=== PATIENT | female | born 1935 | race Caucasian/White ===

== ENCOUNTER 2016-08-24 23:05 | Observation (INO) | payer OTHER ==
[~2016-08-24] VITALS: Ht 167.6 cm; Wt 90.5 kg
[~2016-08-24 23:05] MED LIST: ALL100 PO; ANAS1TAB6 PO; ASPEC325 PO; CALC-392 PO; CHOL1TAB42 PO; CYAN3INJ INJ; FURO-85 PO; GLC500 PO; LANS15CA24 PO; LEVO75TA33 PO; LISI40TA PO; MISCTAB78 PO; MULT-506 PO; PSYL55.43 PO; SENNTAB23 PO; SERT-234 PO; SIMV40TA2 PO
[2016-08-24] MEDS ORDERED: ASPIRIN 81 MG CHEW PO STA (23:31)
[2016-08-24 23:33] LABS: BASO % 0.2 %; BASO ABS # 0.02 K/uL (0-0.2); COMPLETE YES; EOS % 1.2 %; HEMATOCRIT 39.4 % (37-47); IG% 0.3 %; LYMPH % 18.2 %; LYMPH ABS # 1.86 K/uL (1.2-3.4); MEAN CELL VOLUME 89.3 fL (80-100); MEAN CORPUSCULAR HEMOGLOBIN 28.8 pg (25-34); MEAN CORPUSCULAR HGB CONC 32.2 g/dl (32-36); MEAN PLATELET VOLUME 11.8 fL (7.4-10.4); MONO % 7.1 %; PLATELET COUNT 181 K/uL (130-400); RED BLOOD COUNT 4.41 M/uL (4.2-5.4)
[2016-08-24 23:43] LABS: INR 1.1 (0.9-1.1); PROTHROMBIN TIME (PATIENT) 11.5 SECONDS (9.0-12.0)
[2016-08-24 23:56] LABS: ALT/SGPT 24 U/L (12-78); AST/SGOT 15 U/L (15-37); BLOOD UREA NITROGEN 20 mg/dl (7-18); BUN/CREATININE RATIO 14.1 (10-20); CALCIUM 9.7 mg/dl (8.5-10.1); CARBON DIOXIDE 27 mmol/L (21-32); CHLORIDE 105 mmol/L (98-107); GLUCOSE 169 mg/dl (70-99); POTASSIUM 4.1 mmol/L (3.5-5.1); SODIUM 144 mmol/L (136-145)
[2016-08-25] VITALS (9 sets, daily range): BP systolic 125–169; BP diastolic 76–92; PULSE 63–89; TEMP 36.4–36.9; O2SAT 92–96; BMI 31.6
[2016-08-25 00:01] LABS: ALKALINE PHOSPHATASE 97 U/L (45-117); CKMB/CK RATIO 1.7 (0-3.0)
[2016-08-25] MEDS ORDERED: DOCU-94 PO (00:25)
[2016-08-25] MEDS ORDERED: ALLO100T PO (00:25)
[2016-08-25] MEDS ORDERED: CYNI1000 IM (00:26)
[2016-08-25] MEDS ORDERED: GLUCTAB7 PO (00:28)
[2016-08-25] MEDS ORDERED: SITA50TA5 PO (00:30)
[2016-08-25] MEDS ORDERED: SITA50TA3 PO (00:30)
[2016-08-25] MEDS ORDERED: LEVO88TA3 PO (00:31)
[2016-08-25] MEDS ORDERED: METF1000 PO (00:32)
[2016-08-25] MEDS ORDERED: OMEP40CA41 PO (00:33)
--- NOTE | 2016-08-25 01:14 | EMERGENCY ROOM VISIT NOTE ---
History Report prepared by Rosaline: Star Zuñiga Under the Supervision of: Dr. Domenico Kenney M.D. First contact with patient: 23:19 Chief Complaint: CARDIAC ASSESSMENT Stated Complaint: HEART BURN, LEFT HAND NUMBNESS Nursing Triage Summary: Pt reports mid chest pain, burning since 1900. Associated nausea. Pt reports she tried taking TUMs at home. No relief. denies cardiac hx. History of Present Illness The patient is a 80 year old female who presents to the Emergency Room with complaints of resolved chest pain that onset at 1900 this evening, 4.5 hours prior to arrival. She rates her pain as a 5/10 in severity. The patient also complains of some numbness in her left fingers, and radiation of her chest pain up into her shoulders. She was also slightly nauseous throughout the day today. The patient states that she has had indigestion in the past, but never anything that onset quite like this episode. She has not experienced any diaphoresis or tingling in her legs. The patient does have a history of high cholesterol, hypertension, and diabetes. Patient denies LOC, headache, fevers, chills, diaphoresis, visual changes, neck pain breathing difficulties, vomiting, abdominal pain, back pain, melena, hematochezia, urinary symptoms, weakness, lymphadenopathy, rash, or other complaints. 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 Review of Systems See HPI for pertinent positives and negatives. A total of ten systems were reviewed and were otherwise negative. Past Medical & Surgical Medical Problems: (1) Chest pain (2) Diabetes (3) High cholesterol (4) Hypertension Surgical Problems: (1) History of cholecystectomy Family History Heart disease Social History Smoking Status: Never Smoker Drug Use: none Marital Status: Housing Status: lives with significant other Occupation Status: retired Current/Historical Medications Scheduled Allopurinol (Zyloprim), 100 MG PO DAILY Calcium Carbonate (Calcium Carbonate), 600 MG PO DAILY Cholecalciferol (Vitamin D), 5,000 UNIT PO DAILY Cyanocobalamin (Cyanocobalamin), 1 ML IM MONTHLY Docusate Sodium (Colace), 1 CAP PO DAILY Furosemide (Lasix), 20 MG PO DAILY Qpogkesebqw-Snodurhqais-Zps C- (Glucosamine Chondroitin), 1 TAB PO DAILY Levothyroxine Sodium (Levothyroxine Sodium), 88 MCG PO DAILY Lisinopril (Zestril), 40 MG PO DAILY Metformin Hcl (Glucophage), 1,000 MG PO BID Multivitamin (Multivitamin), 1 TAB PO DAILY Omeprazole (Prilosec), 40 MG PO DAILY Sertraline (Zoloft), 200 MG PO DAILY Simvastatin (Zocor), 40 MG PO HS Sitagliptin (Januvia), 50 MG PO DAILY Sitagliptin-Metformin Hcl (Janumet), 1 TAB PO DAILY Allergies Coded Allergies: Hydromorphone (Unverified Adverse Reaction, Severe, hallucinations, confusion, 08/25/16) Physical Exam Vital Signs Date Time Temp Pulse Resp B/P Pulse Ox O2 Delivery O2 Flow Rate FiO2 08/25/16 00:36 64 18 147/78 95 Room Air 08/24/16 23:28 96 Room Air 08/24/16 23:20 72 08/24/16 23:16 96 Room Air 08/24/16 23:16 97 Room Air 08/24/16 23:08 36.3 76 18 176/91 96 Room Air Physical Exam GENERAL: Awake, alert, well-appearing, in no distress HENT: Normocephalic, atraumatic. Oropharynx unremarkable. EYES: Normal conjunctiva. Sclera non-icteric. NECK: Supple. No nuchal rigidity. FROM. No JVD. RESPIRATORY: Clear to auscultation. CARDIAC: Regular rate, normal rhythm. Extremities warm and well perfused. Pulses equal. ABDOMEN: Soft, non-distended. No tenderness to palpation. No rebound or guarding. No masses. RECTAL: Deferred. MUSCULOSKELETAL: Chest examination reveals no tenderness. The back is symmetrical on inspection without obvious abnormality. There is no CVA tenderness to palpation. No joint edema. LOWER EXTREMITIES: Calves are equal size bilaterally and non-tender. No edema. No discoloration. NEURO: Normal sensorium. No sensory or motor deficits noted. SKIN: No rash or jaundice noted. Medical Decision & Procedures ER Provider Diagnostic Interpretation: Chest x-ray. Findings: A chest x-ray was performed and revealed no pneumothorax, effusion, infiltrate, pulmonary edema, free air under the diaphragm, or wide mediastinum. Laboratory Results 08/24/16 23:20 Red Blood Count 4.41, Mean Corpuscular Volume 89.3, Mean Corpuscular Hemoglobin 28.8, Mean Corpuscular Hemoglobin Concent 32.2, Mean Platelet Volume 11.8, Neutrophils (%) (Auto) 73.0, Lymphocytes (%) (Auto) 18.2, Monocytes (%) (Auto) 7.1, Eosinophils (%) (Auto) 1.2, Basophils (%) (Auto) 0.2, Neutrophils # (Auto) 7.45, Lymphocytes # (Auto) 1.86, Monocytes # (Auto) 0.72, Eosinophils # (Auto) 0.12, Basophils # (Auto) 0.02 08/24/16 23:20 Test 08/24/16 23:20 08/24/16 23:27 White Blood Count 10.20 K/uL (4.8-10.8) Red Blood Count 4.41 M/uL (4.2-5.4) Hemoglobin 12.7 g/dL (12.0-16.0) Hematocrit 39.4 % (37-47) Mean Corpuscular Volume 89.3 fL (80-100) Mean Corpuscular Hemoglobin 28.8 pg (25-34) Mean Corpuscular Hemoglobin Concent 32.2 g/dl (32-36) Platelet Count 181 K/uL (130-400) Mean Platelet Volume 11.8 fL (7.4-10.4) Neutrophils (%) (Auto) 73.0 % Lymphocytes (%) (Auto) 18.2 % Monocytes (%) (Auto) 7.1 % Eosinophils (%) (Auto) 1.2 % Basophils (%) (Auto) 0.2 % Neutrophils # (Auto) 7.45 K/uL (1.4-6.5) Lymphocytes # (Auto) 1.86 K/uL (1.2-3.4) Monocytes # (Auto) 0.72 K/uL (0.11-0.59) Eosinophils # (Auto) 0.12 K/uL (0-0.5) Basophils # (Auto) 0.02 K/uL (0-0.2) RDW Standard Deviation 47.9 fL (36.4-46.3) RDW Coefficient of Variation 14.7 % (11.5-14.5) Immature Granulocyte % (Auto) 0.3 % Immature Granulocyte # (Auto) 0.03 K/uL (0.00-0.02) Prothrombin Time 11.5 SECONDS (9.0-12.0) Prothromb Time International Ratio 1.1 (0.9-1.1) Activated Partial Thromboplast Time 25.5 SECONDS (21.0-31.0) Partial Thromboplastin Ratio 1.0 Anion Gap 12.0 mmol/L (3-11) Est Creatinine Clear Calc Drug Dose 37.2 ml/min Estimated GFR () 41.6 Estimated GFR (Non- 35.9 BUN/Creatinine Ratio 14.1 (10-20) Calcium Level 9.7 mg/dl (8.5-10.1) Total Bilirubin 0.3 mg/dl (0.2-1) Direct Bilirubin < 0.1 mg/dl (0-0.2) Aspartate Amino Transf (AST/SGOT) 15 U/L (15-37) Alanine Aminotransferase (ALT/SGPT) 24 U/L (12-78) Alkaline Phosphatase 97 U/L (45-117) Total Creatine Kinase 59 U/L (26-192) Creatine Kinase MB 1.0 ng/ml (0.5-3.6) Creatine Kinase MB Ratio 1.7 (0-3.0) Total Protein 7.8 gm/dl (6.4-8.2) Albumin 4.1 gm/dl (3.4-5.0) Lipase 176 U/L (73-393) Bedside Troponin I 0.000 ng/ml (0-0.045) Laboratory results reviewed by me Medications Administered Medications (Trade) Dose Ordered Sig/Cathy Route Start Time Stop Time Status Last Admin Dose Admin Aspirin (Aspirin Chew) 324 mg NOW STAT PO 08/24/16 23:31 08/24/16 23:32 DC 08/24/16 23:41 324 MG ECG Indication: chest pain Rate (beats per minute): 72 Rhythm: normal sinus Findings: nonspecific-ST abn, no acute ischemic change, no ectopy, other (LVH) ED Course 2326: The patient was evaluated in room A10. A complete history and physical exam was performed. 2331: Ordered Aspirin 324 mg PO. 0007: I reevaluated the patient at this time, she feeling well. 0011: I placed a page Dr. Meaghan Cutler Medical Decision Triage Nursing notes reviewed. The patient's presentation and history were concerning for chest pain. Etiologies such as cardiac ischemia, aortic dissection, pulmonary embolism, pneumonia, pneumothorax, musculoskeletal, infections, gastrointestinal, as well as others were entertained. The patient was evaluated. Her chest pain resolved. The patient was given aspirin. ECG was nonischemic. Her CBC, chemistry panel, LFTs, lipase, cardiac markers were unremarkable. The patient had an unremarkable chest x-ray. She is diabetic, hypertensive, has high cholesterol, and has a family history. I discussed further evaluation and management in the hospital. Consultation was made with the hospitalist service. The patient was evaluated by Dr. Brent Grey. The chart was completed utilizing [employer] Speech voice recognition software. Grammatical errors, random word insertions, pronoun errors, and incomplete sentences are an occasional consequence of this system due to software limitations, ambient noise, and hardware issues. Any formal questions or concerns about the content, text, or information contained within the body of this dictation should be directly addressed to the physician for clarification. Impression Primary Impression: Substernal chest pain Scribe Attestation The scribe's documentation has been prepared under my direction and personally reviewed by me in its entirety. I confirm that the note above accurately reflects all work, treatment, procedures, and medical decision making performed by me. Departure Information Dispostion Being Evaluated By Hospitalist Referrals Latanya Renteria M.D. (PCP) Patient Instructions My [facility]
[2016-08-25] MEDS ORDERED: POLYETHYLENE (MIRALAX) 17 GM PACK PO PRN (01:15)
[2016-08-25] MEDS ORDERED: ACETAMINOPHEN 325 MG TAB PO PRN (01:15)
[2016-08-25] MEDS ORDERED: ALUMINUM/MAGNESIUM/SIMETH (MAALOX MAX) 30 ML UDC PO PRN ×2 (01:15→12:45)
[2016-08-25] MEDS ORDERED: NITROGLYCERIN 0.4 MG SL PER TAB CHARGE SL PRN (01:15)
[2016-08-25] MEDS ORDERED: MAGNESIUM HYDROXIDE SUSP 30 ML UDC PO PRN (01:15)
[2016-08-25] MEDS ORDERED: ONDANSETRON INJ 2 MG/ML 2 ML VIAL IV PRN (01:15)
[2016-08-25] MEDS ORDERED: IV FLUIDS COMPLETED PRN (01:15)
--- NOTE | 2016-08-25 01:31 | History and Physical ---
History & Physical Date & Time of Service: Aug 25, 2016 at 01:19 Chief Complaint: Heart Burn, Left Hand Numbness Primary Care Physician: Latanya Renteria M.D. History of Present Illness Source: patient This is a 80 y/o F with a pmh of DM-2, Hypercholesterolemia, HTN, Breast cancer s/p lumpectomy and radiation, diverticulitis s/p partial colectomy, who presents with mid-sternal burning sensation since about 7 pm. She reports that it is not a chest pain but "acid reflux." She has had this occasionally in the past, but this has been persistent since 7 pm. She was brought in by her her . She rates her discomfort a 6/10. It radiates to her right neck and is accompanied by left hand numbness/tingling as well as nausea. She took two tums but there was no relief. She denies diaphoresis, shortness of breath, dizziness , pre-syncope, syncope, melena, hematochezia, weakness of extremities, hematuria. She denies cardiac history Denies h/o of stroke Non smoker Ambulatory at home with minimal support. Lives with . Past Medical/Surgical History Medical Problems: (1) Diabetes Status: Chronic (2) High cholesterol Status: Chronic (3) Hypertension Status: Chronic Surgical Problems: (1) History of cholecystectomy Status: Resolved Family History Heart disease Social History Smoking Status: Never Smoker Alcohol Use: none Drug Use: none Marital Status: Housing status: lives with family Occupational Status: retired Immunizations History of Influenza Vaccine: Yes History of Tetanus Vaccine?: Unknown History of Pneumococcal: Yes Pneumococcal Date: May 07, 2007 History of Hepatitis B Vaccine: Unknown Multi-Drug Resistant Organisms History of MDRO: No Allergies Coded Allergies: Hydromorphone (Unverified Adverse Reaction, Severe, hallucinations, confusion, 08/25/16) Home Medications Scheduled Allopurinol (Zyloprim), 100 MG PO DAILY Calcium Carbonate (Calcium Carbonate), 600 MG PO DAILY Cholecalciferol (Vitamin D), 5,000 UNIT PO DAILY Cyanocobalamin (Cyanocobalamin), 1 ML IM MONTHLY Docusate Sodium (Colace), 1 CAP PO DAILY Furosemide (Lasix), 20 MG PO DAILY Chgthxbqedv-Kbempcvttzo-Yht C- (Glucosamine Chondroitin), 1 TAB PO DAILY Levothyroxine Sodium (Levothyroxine Sodium), 88 MCG PO DAILY Lisinopril (Zestril), 40 MG PO DAILY Metformin Hcl (Glucophage), 1,000 MG PO BID Multivitamin (Multivitamin), 1 TAB PO DAILY Omeprazole (Prilosec), 40 MG PO DAILY Sertraline (Zoloft), 200 MG PO DAILY Simvastatin (Zocor), 40 MG PO HS Sitagliptin (Januvia), 50 MG PO DAILY Sitagliptin-Metformin Hcl (Janumet), 1 TAB PO DAILY Review of Systems Constitutional: No chills, No fatigue, No fever, No sweats, No weakness Eyes: + worsening of vision (pre-existing cataracts) ENT: No hearing loss Respiratory: No cough, No dyspnea at rest, No dyspnea on exertion, No shortness of breath, No sputum, No wheezing Cardiovascular: No PND, No chest pain, No edema, No orthopnea, No palpitations Abdomen: + nausea, + problem reported (Burning sensation, midsternal), No constipation, No diarrhea, No pain, No vomiting Genitourinary - Female: No dysuria, No urinary frequency, No urinary urgency Neurologic: + numbness/tingling, No paralysis, No weakness Physical Exam Vital Signs Date Time Temp Pulse Resp B/P Pulse Ox O2 Delivery O2 Flow Rate FiO2 08/25/16 00:36 64 18 147/78 95 Room Air 08/24/16 23:28 96 Room Air 08/24/16 23:20 72 08/24/16 23:16 96 Room Air 08/24/16 23:16 97 Room Air 08/24/16 23:08 36.3 76 18 176/91 96 Room Air General Appearance: no apparent distress Head: normocephalic, atraumatic Eyes: normal inspection, PERRL, EOMI ENT: hearing grossly normal, pharynx normal Neck: supple, no adenopathy, no JVD Respiratory/Chest: lungs clear, normal breath sounds, no respiratory distress, no accessory muscle use Cardiovascular: regular rate, rhythm, no edema, + systolic murmur Abdomen/GI: normal bowel sounds, non tender, soft Back: normal inspection, no CVA tenderness Extremities/Musculoskelatal: normal inspection, no calf tenderness, normal capillary refill, no pedal edema 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, no motor/sensory deficits, alert, normal mood/affect, oriented x 3 Diagnostics Laboratory Results Results Past 24 Hours Test 08/24/16 23:20 08/24/16 23:27 Range/Units White Blood Count 10.20 4.8-10.8 K/uL Red Blood Count 4.41 4.2-5.4 M/uL Hemoglobin 12.7 12.0-16.0 g/dL Hematocrit 39.4 37-47 % Mean Corpuscular Volume 89.3 80-100 fL Mean Corpuscular Hemoglobin 28.8 25-34 pg Mean Corpuscular Hemoglobin Concent 32.2 32-36 g/dl Platelet Count 181 130-400 K/uL Mean Platelet Volume 11.8 7.4-10.4 fL Neutrophils (%) (Auto) 73.0 % Lymphocytes (%) (Auto) 18.2 % Monocytes (%) (Auto) 7.1 % Eosinophils (%) (Auto) 1.2 % Basophils (%) (Auto) 0.2 % Neutrophils # (Auto) 7.45 1.4-6.5 K/uL Lymphocytes # (Auto) 1.86 1.2-3.4 K/uL Monocytes # (Auto) 0.72 0.11-0.59 K/uL Eosinophils # (Auto) 0.12 0-0.5 K/uL Basophils # (Auto) 0.02 0-0.2 K/uL RDW Standard Deviation 47.9 36.4-46.3 fL RDW Coefficient of Variation 14.7 11.5-14.5 % Immature Granulocyte % (Auto) 0.3 % Immature Granulocyte # (Auto) 0.03 0.00-0.02 K/uL Prothrombin Time 11.5 9.0-12.0 SECONDS Prothromb Time International Ratio 1.1 0.9-1.1 Activated Partial Thromboplast Time 25.5 21.0-31.0 SECONDS Partial Thromboplastin Ratio 1.0 Sodium Level 144 136-145 mmol/L Potassium Level 4.1 3.5-5.1 mmol/L Chloride Level 105 98-107 mmol/L Carbon Dioxide Level 27 21-32 mmol/L Anion Gap 12.0 3-11 mmol/L Blood Urea Nitrogen 20 7-18 mg/dl Creatinine 1.40 0.60-1.20 mg/dl Est Creatinine Clear Calc Drug Dose 37.2 ml/min Estimated GFR () 41.6 Estimated GFR (Non- 35.9 BUN/Creatinine Ratio 14.1 10-20 Random Glucose 169 70-99 mg/dl Calcium Level 9.7 8.5-10.1 mg/dl Total Bilirubin 0.3 0.2-1 mg/dl Direct Bilirubin < 0.1 0-0.2 mg/dl Aspartate Amino Transf (AST/SGOT) 15 15-37 U/L Alanine Aminotransferase (ALT/SGPT) 24 12-78 U/L Alkaline Phosphatase 97 45-117 U/L Total Creatine Kinase 59 26-192 U/L Creatine Kinase MB 1.0 0.5-3.6 ng/ml Creatine Kinase MB Ratio 1.7 0-3.0 Total Protein 7.8 6.4-8.2 gm/dl Albumin 4.1 3.4-5.0 gm/dl Lipase 176 73-393 U/L Bedside Troponin I 0.000 0-0.045 ng/ml Impression Assessment and Plan This is a 80 y/o F with DM, HTN, Hyperchol who presents with a several hour history of persistent mid-sternal burning sensation, concerning for atypical presentation of ACS vs. Gerd etc. We will observe her on tele. Chest pain rule out: Initial troponin negative, trend x 3 Initial EKG without Ischemic changes, ectopy Heart risk score of 4 points - 12% - 16% risk of cardiac events Will Order a Stress Echo for tomorrow MAEGAN cr of 1.4 Trend BMP Gentle hydration HTN Continue Lisinopril Hypothyroid Continue Synthroid Hypercholesterolemia Continue Zocor non insulin dependant Diabetes type 2 Random glucose here of 169 Hold Metformin, janumet and januvia ISS BS AC/HS Lantus 10 units qAM to start- can adjust based on blood sugars GI prophylaxis Takes omeprazole Protonix here DVT prophylaxis Lovenox Code: Full Level of Care Telemetry Resuscitation Status FULL RESUSCITATION VTE Prophylaxis VTE Risk Assessment Done? Y/N: Yes Risk Level: Moderate Given or contraindicated: Enoxaparin (Lovenox)SQ Assessment and Plan Attending Addendum: I have physically seen and examined this patient, have directed their medical care, have supervised the medical residents activities, and agree with the H&P as noted above, with the following changes: The patient is awake, well-developed and adequately nourished, alert and oriented 3, normocephalic and atraumatic, lying in bed and in no acute distress. HEENT--PERRL, EOMI, mucous membranes and oropharynx dry. Neck--supple, no JVD or bruits, thyroid normal, trachea midline, no adenopathy. Heart--normal S1 and S2, no extra beats, no murmurs, rubs or gallops. Lungs--clear bilaterally with good air movement, no respiratory distress, no accessory muscle use. Abdomen--normal bowel sounds and soft, nontender and nondistended, no hernias or masses, no organomegaly. Extremities--no cyanosis, clubbing or edema. There are good distal pulses b/l. Dermatologic--normal skin turgor, normal color, warm and dry, no abnormal lymph nodes, no rash. Neurologic--cranial nerves II through XII grossly intact, motor and sensory examination normal. Rheumatologic--normal range of motion, nontender, muscles and joints. Psychiatric--normal affect. Assessment and Plan: Indigestion/midsternal burning-- the patient's symptoms could be that of an anginal equivalent. She has multiple risk factors including age over 55, hypertension, hypercholesterolemia, diabetes mellitus and being overweight. She 'll be admitted to the telemetry unit, for serial cardiac enzymes, cardiac rhythm monitoring and a 2-D echocardiogram with Dopplers she will need a stress echocardiogram prior to discharge. Hypertension/renal insufficiency--we will continue lisinopril 40 mg by mouth daily. Hold furosemide 20 mg by mouth daily due to appearance of mild dehydration. Diabetes mellitus--hold all forms of metformin including metformin 1000 mg by mouth twice a day and Janumet, due to creatinine 1.4 . Can continue Januvia 50 mg by mouth daily, or if blood sugars are high morning, can start Lantus 10 units subcutaneous a.m.. We'll place on Accu-Cheks before meals and at bedtime with NovoLog coverage. Hypercholesterolemia--continue simvastatin 40 mg by mouth at bedtime. Gout--continue allopurinol 100 mg by mouth daily. Hypothyroidism--continue levothyroxine sodium 50 g by mouth daily. GERD--change omeprazole 40 mg by mouth daily to pantoprazole 40 mg by mouth daily. Depression--continue sertraline 200 mg by mouth daily.
[2016-08-25] MEDS ORDERED: GLUCOSE 40% GEL 15 GM TUBE PO PRN (01:45)
[2016-08-25] MEDS ORDERED: DEXTROSE 50% 50 ML SYR IV PRN (01:45)
[2016-08-25] MEDS ORDERED: GLUCOSE 10 TABS/TUBE PO PRN (01:45)
[2016-08-25] MEDS ORDERED: GLUCAGON FOR INJ 1 MG VIAL SQ PRN (01:45)
[2016-08-25] MEDS ORDERED: SODIUM CHLORIDE 0.9% 1000ML 1,000 ML IV SCH (02:00)
[2016-08-25] MEDS ORDERED: HydrALAZINE HCL 20 MG/ML VIAL IV. PRN (02:15)
[2016-08-25] MEDS ORDERED: CALCIUM CARBONATE 500 MG CHEWABLE PO PRN (02:30)
[2016-08-25] MEDS: LEVOTHYROXINE 88 MCG TAB PO SCH (05:37)
[2016-08-25] MEDS: INSULIN ASPART 100 UNITS/ML 3 ML PEN SC SCH ×4 (06:30→21:00)
--- NOTE | 2016-08-25 07:12 | DIAGNOSTIC IMAGING REPORT ---
SINGLE VIEW CHEST CLINICAL HISTORY: Atypical chest pain. FINDINGS: An AP, portable, upright chest radiograph is compared to study dated 12/12/2013. The cardiomediastinal silhouette is unremarkable. There is atherosclerotic calcification of the thoracic aorta. Chronic interstitial thickening is unchanged. Minimal left basilar scarring versus atelectasis is identified. There is no airspace consolidation, large pleural effusion, or pneumothorax seen. The skeletal structures are osteopenic. The bony thorax is grossly intact. IMPRESSION: No acute cardiopulmonary abnormality. Electronically signed by: Ian Godwin M.D. 08/25/2016 7:10 AM Dictated Date/Time: 08/25/2016 7:10 AM
[2016-08-25] MEDS: SERTRALINE HCL 100 MG TAB PO SCH (08:01)
[2016-08-25] MEDS: ALLOPURINOL 100 MG TAB PO SCH (08:01)
[2016-08-25] MEDS: DOCUSATE SODIUM 100 MG CAP PO SCH (08:01)
[2016-08-25] MEDS: MULTIVITAMIN TAB PO SCH (08:01)
[2016-08-25] MEDS: LISINOPRIL 40 MG TAB PO SCH (08:01)
[2016-08-25] MEDS: FUROSEMIDE 20 MG TAB PO SCH (08:01)
[2016-08-25] MEDS: ENOXAPARIN 40 MG/0.4 ML SYR SC SCH (08:02)
[2016-08-25] MEDS: INSULIN GLARGINE SOLOSTAR 100 UNITS/ML 3 ML PEN SC SCH (09:00)
--- NOTE | 2016-08-25 09:24 | Medical Student: [facility] ---
Med Student History & Physical Date & Time of Service: Aug 25, 2016 at 08:58 Chief Complaint: Chest "burning" that won't go away Primary Care Physician: Latanya Renteria M.D. History of Present Illness Source: patient, hospital records Patient is a 80 year old female with PMH of DM type 2, HTN, and hypercholesterolemia who presented to the ED on 08/24 with several hours of chest "burning" with nausea. The patient says she gets heartburn at home but it has never been this severe. It started around 7pm last night and did not respond to tums. She describes the pain as 6/10 in severity. It radiated to her neck and left arm. She also felt tingling/numbness in left arm. She says the left arm "tingling" is not new to her. The pain did not get better or worse with position change or exertion. She denies shortness of breath, diaphoresis, dizziness, vomiting, fevers, and chills. She also denies eating or drinking new or spicy foods. EKG in the ED did not show any ischemic changes. No acute events over night. Patient does not feel any better since admission. Still experiencing chest "burning" and nausea. Has not felt like eating since she arrived. Past Medical/Surgical History Medical Problems: (1) Diabetes Status: Chronic (2) Hypertension Status: Chronic (3) Substernal chest pain Status: Acute Surgical Problems: (1) History of cholecystectomy Status: Resolved Family History Heart disease Social History Smoking Status: Never Smoker Alcohol Use: none Drug Use: none Marital Status: Housing status: lives with family Occupational Status: retired Immunizations History of Influenza Vaccine: Yes History of Tetanus Vaccine?: Unknown History of Pneumococcal: Yes Pneumococcal Date: May 07, 2007 History of Hepatitis B Vaccine: Unknown Allergies Coded Allergies: Hydromorphone (Unverified Adverse Reaction, Severe, hallucinations, confusion, 08/25/16) Medications Allopurinol (Zyloprim), 100 MG PO DAILY Calcium Carbonate (Calcium Carbonate), 600 MG PO DAILY Cholecalciferol (Vitamin D), 5,000 UNIT PO DAILY Cyanocobalamin (Cyanocobalamin), 1 ML IM MONTHLY Docusate Sodium (Colace), 1 CAP PO DAILY Furosemide (Lasix), 20 MG PO DAILY Uroxxmnlayp-Vwduvssurbm-Ois C- (Glucosamine Chondroitin), 1 TAB PO DAILY Levothyroxine Sodium (Levothyroxine Sodium), 88 MCG PO DAILY Lisinopril (Zestril), 40 MG PO DAILY Metformin Hcl (Glucophage), 1,000 MG PO BID Multivitamin (Multivitamin), 1 TAB PO DAILY Omeprazole (Prilosec), 40 MG PO DAILY Sertraline (Zoloft), 200 MG PO DAILY Simvastatin (Zocor), 40 MG PO HS Sitagliptin (Januvia), 50 MG PO DAILY Sitagliptin-Metformin Hcl (Janumet), 1 TAB PO DAILY Review of Systems Constitutional: No chills, No fatigue, No fever, No sweats, No weakness, No weight loss Eyes: No worsening of vision ENT: No hearing loss Respiratory: No cough, No dyspnea at rest, No dyspnea on exertion, No shortness of breath, No sputum, No wheezing Cardiovascular: + problem reported (chest burning ), No chest pain, No palpitations Abdomen: + nausea, No pain, No vomiting Genitourinary - Female: No dysuria, No urinary frequency, No urinary incontinence, No urinary retention, No urinary urgency Neurologic: + numbness/tingling (left arm ), No memory loss, No paralysis, No weakness Psychiatric: No depression symptoms Endocrine: No fatigue Physical Exam Vital Signs (24 Hours) Date Time Temp Pulse Resp B/P Pulse Ox O2 Delivery O2 Flow Rate FiO2 08/25/16 07:55 36.6 78 20 169/92 95 08/25/16 04:41 36.7 65 18 136/77 96 Room Air 08/25/16 04:24 Room Air 08/25/16 02:20 36.7 63 16 149/84 96 Room Air 08/25/16 01:30 63 19 174/91 96 08/25/16 00:36 64 18 147/78 95 Room Air 08/24/16 23:28 96 Room Air 08/24/16 23:20 72 08/24/16 23:16 96 Room Air 08/24/16 23:16 97 Room Air 08/24/16 23:08 36.3 76 18 176/91 96 Room Air General Appearance: no apparent distress, + obese Head: normocephalic Eyes: normal inspection, PERRL, EOMI ENT: hearing grossly normal Neck: supple, no adenopathy, no JVD Respiratory/Chest: lungs clear, normal breath sounds, no respiratory distress, no accessory muscle use, + pertinent finding (chest discomfort worse with palpation over the sternum) Cardiovascular: regular rate, rhythm, no edema, no murmur Abdomen/GI: normal bowel sounds, non tender, soft Extremities/Musculoskelatal: no pedal edema Neurologic/Psych: no motor/sensory deficits, alert, normal mood/affect, oriented x 3 Skin: warm/dry Diagnostics Laboratory Results Results Past 24 Hours Test 08/24/16 23:20 08/24/16 23:27 08/25/16 07:35 08/25/16 07:42 Range/Units White Blood Count 10.20 4.8-10.8 K/uL Red Blood Count 4.41 4.2-5.4 M/uL Hemoglobin 12.7 12.0-16.0 g/dL Hematocrit 39.4 37-47 % Mean Corpuscular Volume 89.3 80-100 fL Mean Corpuscular Hemoglobin 28.8 25-34 pg Mean Corpuscular Hemoglobin Concent 32.2 32-36 g/dl Platelet Count 181 130-400 K/uL Mean Platelet Volume 11.8 7.4-10.4 fL Neutrophils (%) (Auto) 73.0 % Lymphocytes (%) (Auto) 18.2 % Monocytes (%) (Auto) 7.1 % Eosinophils (%) (Auto) 1.2 % Basophils (%) (Auto) 0.2 % Neutrophils # (Auto) 7.45 1.4-6.5 K/uL Lymphocytes # (Auto) 1.86 1.2-3.4 K/uL Monocytes # (Auto) 0.72 0.11-0.59 K/uL Eosinophils # (Auto) 0.12 0-0.5 K/uL Basophils # (Auto) 0.02 0-0.2 K/uL RDW Standard Deviation 47.9 36.4-46.3 fL RDW Coefficient of Variation 14.7 11.5-14.5 % Immature Granulocyte % (Auto) 0.3 % Immature Granulocyte # (Auto) 0.03 0.00-0.02 K/uL Prothrombin Time 11.5 9.0-12.0 SECONDS Prothromb Time International Ratio 1.1 0.9-1.1 Activated Partial Thromboplast Time 25.5 21.0-31.0 SECONDS Partial Thromboplastin Ratio 1.0 Sodium Level 144 136-145 mmol/L Potassium Level 4.1 3.5-5.1 mmol/L Chloride Level 105 98-107 mmol/L Carbon Dioxide Level 27 21-32 mmol/L Anion Gap 12.0 3-11 mmol/L Blood Urea Nitrogen 20 7-18 mg/dl Creatinine 1.40 0.60-1.20 mg/dl Est Creatinine Clear Calc Drug Dose 37.2 ml/min Estimated GFR () 41.6 Estimated GFR (Non- 35.9 BUN/Creatinine Ratio 14.1 10-20 Random Glucose 169 70-99 mg/dl Calcium Level 9.7 8.5-10.1 mg/dl Total Bilirubin 0.3 0.2-1 mg/dl Direct Bilirubin < 0.1 0-0.2 mg/dl Aspartate Amino Transf (AST/SGOT) 15 15-37 U/L Alanine Aminotransferase (ALT/SGPT) 24 12-78 U/L Alkaline Phosphatase 97 45-117 U/L Total Creatine Kinase 59 26-192 U/L Creatine Kinase MB 1.0 0.5-3.6 ng/ml Creatine Kinase MB Ratio 1.7 0-3.0 Total Protein 7.8 6.4-8.2 gm/dl Albumin 4.1 3.4-5.0 gm/dl Lipase 176 73-393 U/L Bedside Troponin I 0.000 0-0.045 ng/ml Troponin I < 0.015 0-0.045 ng/ml Bedside Glucose 159 70-90 mg/dl Impression Assessment and Plan ASSESSMENT This is a 80 year old female with PMH of DM type 2, HTN, hypercholesteremia, and GERD who presented to the ED with several hours of persistent mid sternal burning admitted for atypical ACS vs GERD rule out. PLAN 1) Chest discomfort -Rule out ACS. Initial troponin negative. Trend 3 troponins. -Patient scheduled for stress echocardiogram today. 2) HTN -Continue Lisinopril 40mg daily. 3) Hypothyroidism -Continue Levothyroxine sodium 88mcg daily. 4) Hypercholesterolemia -Continue Zocor 40mg daily. 5) DM type 2 -Random blood glucose was 169. Check BG AC/HS. -Currently holding home metformin, Januvia, and Janumet. -Lantus 10U qAM with ISS. 6) DVT prophylaxis -Patient started on Lovenox. Advanced Directives Existing Living Will: Yes Existing Power of Director Of Event Sales: Yes
[2016-08-25] MEDS ORDERED: PANTOprazole INJ 40 MG in SYRINGE 0 ML IV SCH (11:00)
[2016-08-25] MEDS ORDERED: ALUMINUM/MAGNESIUM/SIMETH (MAALOX MAX) 30 ML UDC PO STA (12:35)
--- NOTE | 2016-08-25 12:46 | EXERCISE STRESS ECHO ---
*NOTICE TO RECEIVING REPUBLICAN AGENCY This information is strictly Confidential and protected under [place] law. [place] law prohibits you from making any further disclosure of this information unless further disclosure is expressly permitted by the written consent of the person to whom it pertains or is authorized by law. A general authorization for the release of medical or other information is not sufficient for this purpose. Hospital accepts no responsibility if the information is made available to any other person, INCLUDING THE PATIENT. Interpretation Summary * Name: EPHRAIM BUSTOS Study Date: 08/25/2016 09:26 AM BP: 155/83 mmHg * Patient Location: [facility]\S\N289\S\2 HR: 70 * : 1935 (M/d/yyyy) Gender: Female Height: 66 in * Age: 80 yrs Ethnicity: [place] Weight: 195 lb * Ordering Physician: Meaghan Cutler * Referring Physician: Self, Referred * Performed By: Deepti Gong RDCS * * Reason For Study: CHEST PAIN * BSA: 2.0 m2 * History: CHEST PAIN * -- Conclusions -- * Left ventricular systolic function is normal. * The right ventricle is mildly dilated. * Grade I diastolic dysfunction, (abnormal relaxation pattern). * Poor exercise tolerance, but no inducible ischemia or symptoms with the level of exertion achieved. Procedure Details * ECHOEX, CPT #65405 * A contrast injection of Definity was performed to improve assessment of LV function. * Contrast was injected into an intravenous site in the left arm. * One vial of Definity ultrasound contrast was diluted in normal saline to a total volume of 10 ml. A total of '4' ml of solution was administered during imaging. * Lot # [id number] of Definity utilized for procedure. * Expiration date SEP 16. * The attending nurse who injected the contrast agent was SHEEBA BRANNON RN. Left Ventricular Findings with Stress * Baseline EKG was normal with some flattening of the ST segments in recovery. Baseline echo images demonstrate normal wall motion, no inducible wall motion abnormality with stress. No symptoms. Scott treadmill score: 3.5 (moderate risk) Left Ventricle * The left ventricle is normal in size. * There is normal left ventricular wall thickness. * Ejection Fraction = 60-65%. * Left ventricular systolic function is normal. * Resting wall motion: Normal. Stress wall motion: Appropriate increase in Left ventricular systolic function and decrease in cavity size. No stress induced segmental wall motion abnormalities. Right Ventricle * The right ventricle is mildly dilated. * The right ventricular systolic function is normal. Atria * The left atrial size is normal. * Right atrial size is normal. Mitral Valve * The mitral valve is grossly normal. * There is no mitral regurgitation noted. Tricuspid Valve * The tricuspid valve is not well visualized. * There is trace tricuspid regurgitation. Aortic Valve * The aortic valve is normal in structure and function. * No hemodynamically significant valvular aortic stenosis. * There is no significant aortic regurgitation. Pericardium * There is no pericardial effusion. Stress Parameters * The stress portion of this study was personally supervised by the undersigned interpreting physician. * Rest heart rate was '70' BPM. * Rest blood pressure was '155/83' * Maximum heart rate achieved was 160 bpm. * Maximum heart rate was 112 % of maximum age-predicted heart rate. * Maximum blood pressure was '155/83' * Total exercise time was '6:57' * Maximum exercise MET level achieved was '5.10' METS * Maximum treadmill speed was '1.70' miles per hour. * Maximum treadmill elevation was '16.00'% grade. * Exercise was terminated due to 'ACHIEVING TARGET HR' Left Ventricular Diastolic Function * Grade I diastolic dysfunction, (abnormal relaxation pattern). MMode 2D Measurements and Calculations IVSd 1.1 cm IVSs 1.3 cm LVIDd 4.3 cm LVIDs 2.6 cm LVPWd 0.82 cm LVPWs 1.1 cm IVS/LVPW 1.3 FS 38.5 % EDV(Teich) 81.4 ml ESV(Teich) 25.2 ml EF(Teich) 69.1 % EDV(cubed) 77.5 ml ESV(cubed) 18.1 ml EF(cubed) 76.7 % % IVS thick 17.7 % % LVPW thick 34.8 % LV mass(C)d 129.7 grams LV mass(C)dI 65.5 grams/m\S\2 LV mass(C)s 88.6 grams LV mass(C)sI 44.8 grams/m\S\2 SV(Teich) 56.3 ml SI(Teich) 28.4 ml/m\S\2 SV(cubed) 59.5 ml SI(cubed) 30.0 ml/m\S\2 LVAd ap4 23.2 cm\S\2 LVLd ap4 7.4 cm EDV(MOD-sp4) 60.4 ml EDV(sp4-el) 61.5 ml LVAs ap4 13.0 cm\S\2 LVLs ap4 6.4 cm ESV(MOD-sp4) 22.9 ml ESV(sp4-el) 22.4 ml EF(MOD-sp4) 62.1 % EF(sp4-el) 63.6 % LVAd ap2 21.7 cm\S\2 LVLd ap2 8.0 cm EDV(MOD-sp2) 49.2 ml EDV(sp2-el) 50.1 ml LVAs ap2 11.8 cm\S\2 LVLs ap2 6.3 cm ESV(MOD-sp2) 20.2 ml ESV(sp2-el) 18.6 ml EF(MOD-sp2) 59.0 % EF(sp2-el) 63.0 % LVLd %diff 6.9 % EDV(MOD-bp) 55.5 ml LVLs %diff -0.89 % ESV(MOD-bp) 21.5 ml EF(MOD-bp) 61.3 % SV(MOD-sp4) 37.5 ml SI(MOD-sp4) 19.0 ml/m\S\2 SV(MOD-sp2) 29.0 ml SI(MOD-sp2) 14.7 ml/m\S\2 SV(MOD-bp) 34.0 ml SI(MOD-bp) 17.2 ml/m\S\2 SV(sp4-el) 39.1 ml SI(sp4-el) 19.8 ml/m\S\2 SV(sp2-el) 31.6 ml SI(sp2-el) 15.9 ml/m\S\2 Doppler Measurements and Calculations MV E max patricia 71.3 cm/sec MV A max patricia 104.8 cm/sec MV E/A 0.68 MV dec time 0.29 sec Ao V2 max 199.1 cm/sec Ao max PG 15.9 mmHg Ao max PG (full) 10.3 mmHg LV V1 max PG 5.6 mmHg LV V1 max 118.1 cm/sec
--- NOTE | 2016-08-25 14:15 | Progress Note ---
Subjective Date of Service: Aug 25, 2016. Subjective Pt evaluation today including: conversation w/ patient, physical exam, chart review, lab review, review of studies, conversation w/ staff consultant, review of inpatient medication list Middle chest pain likely heartburn, reported occasional acid reflux, has been getting better, no Chest pain, no dyspnea on exertion Problem List Medical Problems: (1) Diabetes Status: Chronic (2) Hypertension Status: Chronic (3) Substernal chest pain Status: Acute Review of Systems Constitutional: No chills, No fatigue, No fever, No problem reported, No sweats , No weakness, No weight loss Eyes: No diplopia, No discharge, No eye pain, No redness, No worsening of vision ENT: No dental problems, No hearing loss, No nasal symptoms, No sore throat, No tinnitus, No trouble swallowing, No unusual epistaxis Respiratory: No cough, No dyspnea at rest, No dyspnea on exertion, No hemoptysis, No shortness of breath, No sputum, No wheezing Cardiac: No PND, No chest pain, No claudication, No edema, No orthopnea, No palpitations Abdomen: + pain, No constipation, No diarrhea, No nausea, No vomiting Musculoskeletal: No calf pain, No joint pain, No muscle pain, No swelling Female : No abnormal vaginal bleeding, No dysuria, No hematuria, No incontinence, No urinary frequency, No vaginal discharge Neurologic: No balance problems, No memory loss, No numbness/tingling, No paralysis, No vertigo, No weakness Psychiatric: No anhedonism, No anxiety, No depression symptoms, No insomnia, No substance abuse Heme: No abnormal bleeding/bruising, No clotting problems, No night sweats, No swollen lymph nodes Endo: No excessive thirst, No excessive urination, No fatigue Skin: No bleeding, No color change, No itch, No new/changing skin lesions, No rash Objective Vital Signs Date Time Temp Pulse Resp B/P Pulse Ox O2 Delivery O2 Flow Rate FiO2 08/25/16 12:22 95 Room Air 08/25/16 11:28 36.7 89 20 137/83 95 08/25/16 08:01 95 Room Air 08/25/16 07:55 36.6 78 20 169/92 95 08/25/16 04:41 36.7 65 18 136/77 96 Room Air 08/25/16 04:24 Room Air 08/25/16 02:20 36.7 63 16 149/84 96 Room Air 08/25/16 01:30 63 19 174/91 96 08/25/16 00:36 64 18 147/78 95 Room Air 08/24/16 23:28 96 Room Air 08/24/16 23:20 72 08/24/16 23:16 96 Room Air 08/24/16 23:16 97 Room Air 08/24/16 23:08 36.3 76 18 176/91 96 Room Air Physical Exam General Appearance: WD/WN, no apparent distress Eyes: normal inspection, PERRL, EOMI, sclerae normal ENT: normal ENT inspection, hearing grossly normal, pharynx normal Neck: supple, no adenopathy, thyroid normal, no JVD, no carotid bruits, trachea midline Respiratory/Chest: chest non-tender, lungs clear, normal breath sounds, no respiratory distress, no accessory muscle use Cardiovascular: regular rate, rhythm, no edema, no gallop, no JVD, no murmur, + systolic murmur (mild systolic murmur) Abdomen: normal bowel sounds, non tender, soft, no organomegaly, no pulsatile mass Extremities: normal range of motion, non-tender, normal inspection, no pedal edema, no calf tenderness, normal capillary refill, pelvis stable Neurologic/Psychiatric: addiction medicine physician II-XII nml as tested, no motor/sensory deficits, alert, normal mood/affect, oriented x 3 Skin: normal color, warm/dry, no rash Lymphatic: no adenopathy Laboratory Results Last 24 Hours Test 08/24/16 23:20 08/24/16 23:27 08/25/16 07:35 08/25/16 07:42 White Blood Count 10.20 K/uL Red Blood Count 4.41 M/uL Hemoglobin 12.7 g/dL Hematocrit 39.4 % Mean Corpuscular Volume 89.3 fL Mean Corpuscular Hemoglobin 28.8 pg Mean Corpuscular Hemoglobin Concent 32.2 g/dl Platelet Count 181 K/uL Mean Platelet Volume 11.8 fL Neutrophils (%) (Auto) 73.0 % Lymphocytes (%) (Auto) 18.2 % Monocytes (%) (Auto) 7.1 % Eosinophils (%) (Auto) 1.2 % Basophils (%) (Auto) 0.2 % Neutrophils # (Auto) 7.45 K/uL Lymphocytes # (Auto) 1.86 K/uL Monocytes # (Auto) 0.72 K/uL Eosinophils # (Auto) 0.12 K/uL Basophils # (Auto) 0.02 K/uL RDW Standard Deviation 47.9 fL RDW Coefficient of Variation 14.7 % Immature Granulocyte % (Auto) 0.3 % Immature Granulocyte # (Auto) 0.03 K/uL Prothrombin Time 11.5 SECONDS Prothromb Time International Ratio 1.1 Activated Partial Thromboplast Time 25.5 SECONDS Partial Thromboplastin Ratio 1.0 Sodium Level 144 mmol/L Potassium Level 4.1 mmol/L Chloride Level 105 mmol/L Carbon Dioxide Level 27 mmol/L Anion Gap 12.0 mmol/L Blood Urea Nitrogen 20 mg/dl Creatinine 1.40 mg/dl Est Creatinine Clear Calc Drug Dose 37.2 ml/min Estimated GFR () 41.6 Estimated GFR (Non- 35.9 BUN/Creatinine Ratio 14.1 Random Glucose 169 mg/dl Calcium Level 9.7 mg/dl Total Bilirubin 0.3 mg/dl Direct Bilirubin < 0.1 mg/dl Aspartate Amino Transf (AST/SGOT) 15 U/L Alanine Aminotransferase (ALT/SGPT) 24 U/L Alkaline Phosphatase 97 U/L Total Creatine Kinase 59 U/L Creatine Kinase MB 1.0 ng/ml Creatine Kinase MB Ratio 1.7 Total Protein 7.8 gm/dl Albumin 4.1 gm/dl Lipase 176 U/L Bedside Troponin I 0.000 ng/ml Troponin I < 0.015 ng/ml Bedside Glucose 159 mg/dl Test 08/25/16 11:40 08/25/16 12:55 Bedside Glucose 171 mg/dl Troponin I < 0.015 ng/ml Assessment and Plan 80 y/o F with DM, HTN, Hyperchol who presents with a several hour history of persistent mid-sternal burning sensation, concerning for atypical presentation of ACS vs. Gerd etc. We will observe her on tele. Chest pain rule out: With risk factor of diabetic dyslipidemia and hypertension and family history of acute AR, a ROYCE score is around 2, Initial troponin negative, trend x 3 Initial EKG without Ischemic changes, ectopy Heart risk score of 4 points - 12% - 16% risk of cardiac events Stress echo was negative per verbal report from pool technician Epigastric pain could be from the digestive track because stress test is negative for cardiac enzyme troponin is negative Differential diagnoses include gastritis, GERD, peptic ulcerative disease, or liver biliary tract disease, patient has a cholecystectomy already Change Protonix to by mouth, alternating Maalox as needed, MAEGAN. Stable but not better yet cr of 1.4 Trend BMP Gentle hydration HTN Continue Lisinopril Hypothyroid Continue Synthroid Hypercholesterolemia Continue Zocor non insulin dependant Diabetes type 2 Which is uncontrolled because recent A1c mono 7.0 Random glucose here of 169 Hold Metformin, janumet and januvia ISS BS AC/HS Lantus 10 units qAM to start- can adjust based on blood sugars GI prophylaxis Takes omeprazole Protonix here Check a fasting lipid panel, DVT prophylaxis Lovenox Code: Full Continued [facility] stay due to: multiple IV medications needed Discharge planning: home
[2016-08-25] MEDS ORDERED: SIMVASTATIN 40 MG TAB PO SCH (21:00)
[2016-08-26 04:03] VITALS: BP 134/79; PULSE 62; TEMP 36.5; O2SAT 96
[2016-08-26 05:45] LABS: HEMATOCRIT 36.1 % (37-47); MEAN CELL VOLUME 88.3 fL (80-100); MEAN CORPUSCULAR HEMOGLOBIN 28.9 pg (25-34); MEAN CORPUSCULAR HGB CONC 32.7 g/dl (32-36); MEAN PLATELET VOLUME 11.3 fL (7.4-10.4); PLATELET COUNT 154 K/uL (130-400); RED BLOOD COUNT 4.09 M/uL (4.2-5.4)
[2016-08-26] MEDS: LEVOTHYROXINE 88 MCG TAB PO SCH (06:06)
[2016-08-26 06:20] LABS: ALKALINE PHOSPHATASE 82 U/L (45-117); ALT/SGPT 20 U/L (12-78); AST/SGOT 16 U/L (15-37); BLOOD UREA NITROGEN 15 mg/dl (7-18); BUN/CREATININE RATIO 15.4 (10-20); CALCIUM 9.6 mg/dl (8.5-10.1); CARBON DIOXIDE 31 mmol/L (21-32); CHLORIDE 106 mmol/L (98-107); CREATININE 0.94 mg/dl (0.60-1.20); GLUCOSE 145 mg/dl (70-99); SODIUM 144 mmol/L (136-145)
[2016-08-26] MEDS: INSULIN ASPART 100 UNITS/ML 3 ML PEN SC SCH ×2 (06:30→11:00)
[2016-08-26 07:42] VITALS: BP 138/78; PULSE 57; TEMP 36.7; O2SAT 94
[2016-08-26] MEDS: ALLOPURINOL 100 MG TAB PO SCH (08:37)
[2016-08-26] MEDS: DOCUSATE SODIUM 100 MG CAP PO SCH (08:38)
[2016-08-26] MEDS: FUROSEMIDE 20 MG TAB PO SCH (08:38)
[2016-08-26] MEDS: MULTIVITAMIN TAB PO SCH (08:38)
[2016-08-26] MEDS: LISINOPRIL 40 MG TAB PO SCH (08:38)
[2016-08-26] MEDS: SERTRALINE HCL 100 MG TAB PO SCH (08:39)
[2016-08-26] MEDS: ENOXAPARIN 40 MG/0.4 ML SYR SC SCH (08:39)
[2016-08-26] MEDS: INSULIN GLARGINE SOLOSTAR 100 UNITS/ML 3 ML PEN SC SCH (08:48)
[2016-08-26] MEDS ORDERED: PANTOprazole SOD 40 MG TAB PO SCH (09:00)
[2016-08-26 11:15] VITALS: BP 105/63; PULSE 66; TEMP 37; O2SAT 94
[2016-08-26 11:38] VITALS: BMI 70.8
[2016-08-26 11:42] VITALS: Ht 167.6 cm; Wt 90.5 kg
--- NOTE | 2016-08-26 13:57 | Medical Student: [facility] ---
Med Student Progress Note Date of Service Aug 26, 2016. Subjective Pt evaluation today including: conversation w/ patient, lab review, review of studies Pain: denies pain Voiding: no voiding problems Patient is 80 year old female with PMH of HTN, hypercholesterolemia, and type 2 DM who presented to the ED on 08/24 for several hours of "burning" epigastric pain and nausea more severe than her usual GERD. Initial ACS work-up was negative. No acute events overnight. Patient feels "much better" today. She slept well last night and is able to eat again. Denies chest pain, epigastric pain, reflux , cough, nausea, vomiting, and shortness of breath. She is hoping to be discharged this afternoon. Review of Systems Constitutional: No chills, No fatigue, No fever, No sweats, No weakness Eyes: No worsening of vision ENT: No hearing loss, No nasal symptoms, No sore throat Respiratory: No cough, No dyspnea at rest, No dyspnea on exertion, No shortness of breath, No sputum Cardiac: No chest pain, No edema, No palpitations Abdomen: No constipation, No diarrhea, No nausea, No pain, No vomiting Female : No dysuria, No incontinence, No urinary frequency Neurologic: No numbness/tingling, No weakness Objective Vital Signs Date Time Temp Pulse Resp B/P Pulse Ox O2 Delivery O2 Flow Rate FiO2 08/26/16 11:30 Room Air 08/26/16 11:15 37.0 66 20 105/63 94 Room Air 08/26/16 07:42 36.7 57 20 138/78 94 Room Air 08/26/16 07:30 Room Air 08/26/16 04:03 36.5 62 20 134/79 96 Room Air 08/26/16 04:00 Room Air 08/26/16 00:01 Room Air 08/25/16 23:08 36.8 64 18 128/79 96 Room Air 08/25/16 20:16 36.9 70 18 131/80 92 Room Air 08/25/16 20:00 Room Air 08/25/16 16:00 Room Air 08/25/16 15:29 36.4 73 16 125/76 95 Physical Exam General Appearance: no apparent distress, + obese ENT: hearing grossly normal Neck: supple, no adenopathy, no JVD, no carotid bruits Respiratory/Chest: chest non-tender, lungs clear, normal breath sounds, no respiratory distress, no accessory muscle use Cardiovascular: regular rate, rhythm, no JVD, + systolic murmur Abdomen: normal bowel sounds, non tender, soft, no organomegaly, no pulsatile mass Neurologic/Psychiatric: alert, normal mood/affect, oriented x 3 Skin: normal color, warm/dry Laboratory Results Last 24 Hours Test 08/25/16 16:20 08/25/16 19:00 08/25/16 21:06 08/26/16 01:07 Bedside Glucose 154 mg/dl 149 mg/dl Troponin I < 0.015 ng/ml < 0.015 ng/ml Test 08/26/16 05:12 08/26/16 07:36 08/26/16 11:23 White Blood Count 5.80 K/uL Red Blood Count 4.09 M/uL Hemoglobin 11.8 g/dL Hematocrit 36.1 % Mean Corpuscular Volume 88.3 fL Mean Corpuscular Hemoglobin 28.9 pg Mean Corpuscular Hemoglobin Concent 32.7 g/dl RDW Standard Deviation 47.2 fL RDW Coefficient of Variation 14.7 % Platelet Count 154 K/uL Mean Platelet Volume 11.3 fL Sodium Level 144 mmol/L Potassium Level 4.0 mmol/L Chloride Level 106 mmol/L Carbon Dioxide Level 31 mmol/L Anion Gap 7.0 mmol/L Blood Urea Nitrogen 15 mg/dl Creatinine 0.94 mg/dl Est Creatinine Clear Calc Drug Dose 55.3 ml/min Estimated GFR () 67.3 Estimated GFR (Non- 58.1 BUN/Creatinine Ratio 15.4 Random Glucose 145 mg/dl Calcium Level 9.6 mg/dl Total Bilirubin 0.4 mg/dl Direct Bilirubin < 0.1 mg/dl Aspartate Amino Transf (AST/SGOT) 16 U/L Alanine Aminotransferase (ALT/SGPT) 20 U/L Alkaline Phosphatase 82 U/L Total Protein 6.9 gm/dl Albumin 3.3 gm/dl Bedside Glucose 197 mg/dl 166 mg/dl Assessment and Plan Assessment and Plan: Patient is 80 year old female with PMH of HTN, hypercholesterolemia, and type 2 DM who presented to the ED on 08/24 for several hours of "burning" epigastric pain and nausea more severe than her usual GERD admitted for GERD vs atypical ACS rule out. 1) Epigastric pain -Troponins are negative. EKG shows no ischemic changes. Echocardiogram showed normal LV systolic function and grade 1 diastolic dysfunction. -Pain was mostly likely due to GERD exacerbation. Continue Protonix. -Patient says pain and nausea have resolved. She is eating normally again. Possibly ready for discharge this afternoon. 2) HTN -Continue Lisinopril 40mg. 3) Hypothyroidism -Continue Levothyroxine 88mcg. 4) Hypercholesterolemia -Continue Zocor 200mg. 5) DM type 2 -Not well controlled at home on Metformin, Janumet, and Januvia. Most recent A1c 7.0. BG this morning was 197. Before lunch was 166. -Patient was seen by diabetes nurse educator this morning. -Currently holding home medications. Patient is on Lantus 10U qAM with ISS. 6) DVT prophylaxis -Lovenox Continued [facility] stay due to: multiple IV medications needed Discharge planning: home
[2016-08-26 14:51] VITALS: BP 125/73; PULSE 70; TEMP 36.9; O2SAT 95
--- NOTE | 2016-08-26 15:35 | Discharge Instructions ---
Discharge Instructions Date of Service Aug 26, 2016. Admission Reason for Admission: Chest Pain Discharge Discharge Diagnosis / Problem: GERD Discharge Goals Goal(s): Decrease discomfort, Improve function, Increase independence, Improve disease control, Improve nutritional status, Learn about illness, Diagnostic testing, Therapeutic intervention, Prevent Disease Progression, Specific goals Activity Recommendations Activity Limitations: resume your previous activity . Instructions / Follow-Up Instructions / Follow-Up you have atypical Chest pain, has rule out acs you have Epigastric pain could be from the digestive track such as GERD, acute kidney injury , resolved - you need to follow up with your primary care physician in 1 week, follow up with pcp for diabetic care, - call your pcp if have chest pain, sob, palpitation, or if has any questions - take medication as instructed, never overdose or any misuse, or take with alcohol, because misuse of medicine may cause organ damage or , call your primary care physician if have questions of medicaitons. - call your primary care physician OR go to local emergency room if has any fever/chill, chest pain, shortness of breathing, nausea/vomiting/abdominal pain , facial droop/slurry speech/local weakness, or if has any questions. - fall precaution - diet as instructed - you should understand that it is important to follow up the above instruction , and "not following the above instruction" may cause delayed or missed care of your medical conditions which may cause permanent organ damage and even . Current Hospital Diet Patient's current hospital diet: AHA Diet (Heart Healthy), Low Sodium Diet (2gm Na), Diabetes Type 2 Diet Discharge Diet Recommended Diet: Diabetes Type 2 Diet Pending Studies Studies pending at discharge: no Laboratory Results Meds Administered (Past 24Hrs) Medications (Trade) Dose Ordered Sig/Cathy Route Start Time Stop Time Status Last Admin Dose Admin Aspirin (Aspirin Chew) 324 mg NOW STAT PO 08/24/16 23:31 08/24/16 23:32 DC 08/24/16 23:41 324 MG Enoxaparin Sodium 40 mg 40 mg Q24H SC 08/25/16 09:00 09/24/16 08:59 08/26/16 08:39 40 MG Sodium Chloride (Nss 1000ml) 1,000 ml @ 75 mls/hr [id number] IV 08/25/16 02:00 08/25/16 12:38 DC 08/25/16 02:20 75 MLS/HR Allopurinol (Zyloprim Tab) 100 mg DAILY PO 08/25/16 09:00 09/24/16 08:59 08/26/16 08:37 100 MG Docusate Sodium (coLACE CAP) 100 mg DAILY PO 08/25/16 09:00 09/24/16 08:59 08/26/16 08:38 100 MG Furosemide (Lasix Tab) 20 mg DAILY PO 08/25/16 09:00 09/24/16 08:59 08/26/16 08:38 20 MG Levothyroxine Sodium (Synthroid Tab) 88 mcg DAILYBB PO 08/25/16 06:30 09/24/16 06:59 08/26/16 06:06 88 MCG Lisinopril (Zestril Tab) 40 mg DAILY PO 08/25/16 09:00 09/24/16 08:59 08/26/16 08:38 40 MG Multivitamins (Multivitamin Tab) 1 tab DAILY PO 08/25/16 09:00 09/24/16 08:59 08/26/16 08:38 1 TAB Sertraline HCl (Zoloft Tab) 200 mg DAILY PO 08/25/16 09:00 09/24/16 08:59 08/26/16 08:39 200 MG Simvastatin (Zocor Tab) 40 mg HS PO 08/25/16 21:00 09/24/16 20:59 08/25/16 21:10 40 MG Insulin Glargine 10 unit 10 unit QAM SC 08/25/16 09:00 09/24/16 08:59 08/26/16 08:48 10 UNIT Pantoprazole Sodium/Syringe (Protonix Inj/ Syringe) 10 ml @ 5 mls/min DAILY@11 IV 08/25/16 11:00 08/25/16 12:38 DC 08/25/16 11:26 5 MLS/MIN Al Hydrox/Mg Hydrox/Simethicone (Maalox Max Susp) 15 ml NOW STAT PO 08/25/16 12:35 08/25/16 12:52 DC 08/25/16 13:07 15 ML Pantoprazole Sodium (Protonix Tab) 40 mg QAM PO 08/26/16 09:00 09/25/16 08:59 08/26/16 08:38 40 MG Medical Emergencies . Who to Call and When: Medical Emergencies: If at any time you feel your situation is an emergency, please call 911 immediately. . Non-Emergent Contact Non-Emergency issues call your: Primary Care Provider . . "Provider Documentation" section prepared by Angelito Rebolledo. VTE Core Measure Inpt VTE Proph given/why not?: Enoxaparin (Lovenox)SQ
[2016-08-26 16:36] VITALS: BP 125/73; PULSE 70; TEMP 36.9; O2SAT 95
--- NOTE | 2016-08-26 16:41 | Discharge Summary ---
Discharge Summary Date of Service Aug 26, 2016. Discharge Summary Admission Date: Aug 25, 2016 at 00:59 Discharge Date: Aug 26, 2016 Discharge Disposition: Home Principal Diagnosis: atypical Chest pain, has rule out acs, GERD Problems/Secondary Diagnoses: (1) Diabetes Status: Chronic (2) Hypertension Status: Chronic Immunizations: Have You Had Influenza Vaccine: Yes History of Tetanus Vaccine?: Unknown History of Pneumococcal: Yes Pneumococcal Date: May 07, 2007 History of Hepatitis B Vaccine: Unknown Procedures: Stress test was negative Medication Reconciliation Continued Medications: Allopurinol (Zyloprim) 100 Mg Tab 100 MG PO DAILY, TAB Calcium Carbonate (Calcium Carbonate) 600 Mg Tab 600 MG PO DAILY Cholecalciferol (Vitamin D) 5,000 Unit Tab 5000 UNIT PO DAILY Cyanocobalamin (Cyanocobalamin) 1,000 Mcg/Ml Inj 1 ML IM MONTHLY Docusate Sodium (Colace) 100 Mg Cap 1 CAP PO DAILY for 30 Days, #30 CAP Furosemide (Lasix) 20 Mg Tab 20 MG PO DAILY, TAB Uxatduvbwgq-Xuvwsqjxlcj-Bsf C- (Glucosamine Chondroitin) 1 Tab Tab 1 TAB PO DAILY Levothyroxine Sodium (Levothyroxine Sodium) 88 Mcg Tab 88 MCG PO DAILY, 3 Refills Lisinopril (Zestril) 40 Mg Tab 40 MG PO DAILY, TAB Metformin Hcl (Glucophage) 1,000 Mg Tab 1000 MG PO BID, TAB Multivitamin (Multivitamin) Tab 1 TAB PO DAILY, 0 Refills Omeprazole (Prilosec) 40 Mg Cap 40 MG PO DAILY Sertraline (Zoloft) 100 Mg Tab 200 MG PO DAILY, 0 Refills Simvastatin (Zocor) 40 Mg Tab 40 MG PO HS, TAB Sitagliptin (Januvia) 50 Mg Tab 50 MG PO DAILY Sitagliptin-Metformin Hcl (Janumet) 1 Tab Tab 1 TAB PO DAILY, 3 Refills Discharge Exam Doing well, normal chest pain no more epigastric pain, eating drinking good, tolerate diet Review of Systems: Constitutional: No chills, No fatigue, No fever, No problem reported, No sweats, No weakness, No weight loss Eyes: No diplopia, No discharge, No eye pain, No problem reported, No redness, No worsening of vision Respiratory: No cough, No dyspnea at rest, No dyspnea on exertion, No hemoptysis, No problem reported, No shortness of breath, No sputum, No wheezing Cardiovascular: No PND, No chest pain, No claudication, No edema, No orthopnea, No palpitations, No problem reported Abdomen: No GI bleeding, No constipation, No diarrhea, No nausea, No pain, No problem reported, No vomiting Musculoskeletal: No calf pain, No joint pain, No muscle pain, No problem reported, No swelling Genitourinary - Female: No dysmenorrhea, No dysuria, No hematuria, No menorrhagia, No metrorrhagia, No , No problem reported, No rash, No urinary frequency, No urinary incontinence, No urinary retention, No urinary urgency, No vaginal bleeding, No vaginal discharge, No vaginal itching, No vulvodynia Neurologic: No balance problems, No memory loss, No numbness/tingling, No paralysis, No problem reported, No vertigo, No weakness Psychiatric: No anhedonism, No anxiety, No depression symptoms, No insomnia , No problem reported, No substance abuse Endocrine: No excessive thirst, No excessive urination, No fatigue, No problem reported Hematologic / Lymphatic: No abnormal bleeding/bruising, No clotting problems , No night sweats, No problem reported, No swollen lymph nodes Integumentary: No bleeding, No color change, No itch, No new/changing skin lesions, No problem reported, No rash Physical Exam: General Appearance: WD/WN, no apparent distress Eyes: normal inspection, PERRL, EOMI ENT: normal ENT inspection, hearing grossly normal, TMs normal, pharynx normal Neck: supple, no adenopathy, thyroid normal Respiratory/Chest: chest non-tender, normal breath sounds, no respiratory distress, no accessory muscle use, + decreased breath sounds Cardiovascular: regular rate, rhythm, no edema, no gallop, no JVD, no murmur , normal peripheral pulses Abdomen / GI: normal bowel sounds, non tender, soft, no organomegaly, no pulsatile mass Extremities: normal inspection, no calf tenderness, normal capillary refill , no pedal edema, normal range of motion 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 Gerd etc. We will observe her on tele. Chest pain rule out: With risk factor of diabetic dyslipidemia and hypertension and family history of acute TN, a ROYCE score is around 2, Initial troponin negative, trend x 3 Initial EKG without Ischemic changes, ectopy Heart risk score of 4 points - 12% - 16% risk of cardiac events Stress echo was negative per report from process improvement engineer Epigastric pain could be from the digestive track because stress test is negative for cardiac enzyme troponin is negative Differential diagnoses include gastritis, GERD, peptic ulcerative disease, or liver biliary tract disease, patient has a cholecystectomy already Change Protonix to by mouth, alternating Maalox as needed, Totally resolved today on PPI, we'll continue PPI MAEGAN. Stable but not better yet, totally resolved cr of 1.4 upon admission May need to Trend BMP with PCP Gentle hydration HTN Continue Lisinopril Hypothyroid Continue Synthroid Hypercholesterolemia Continue Zocor non insulin dependant Diabetes type 2 Which is uncontrolled because recent A1c mono 7.0 Random glucose here of 169 Hold Metformin, janumet and januvia upon admission, will restart home medication , seems due to double check with PCP about the medications because patient seems to have Januvia, janumet and metformin, PCP please follow-up Has been on ISS, BS AC/HS, Lantus 10 units qAM to start- can adjust based on blood sugars during his hospitalization GI prophylaxis Takes omeprazole Protonix here Check a fasting lipid panel, DVT prophylaxis Lovenox Code: Full Discharge instruction you have atypical Chest pain, has rule out acs you have Epigastric pain could be from the digestive track such as GERD, acute kidney injury , resolved - you need to follow up with your primary care physician in 1 week, follow up with pcp for diabetic care, - call your pcp if have chest pain, sob, palpitation, or if has any questions - take medication as instructed, never overdose or any misuse, or take with alcohol, because misuse of medicine may cause organ damage or , call your primary care physician if have questions of medicaitons. - call your primary care physician OR go to local emergency room if has any fever/chill, chest pain, shortness of breathing, nausea/vomiting/abdominal pain , facial droop/slurry speech/local weakness, or if has any questions. - fall precaution - diet as instructed - you should understand that it is important to follow up the above instruction , and "not following the above instruction" may cause delayed or missed care of your medical conditions which may cause permanent organ damage and even . Total Time Spent: Less than 30 minutes This includes examination of the patient, discharge planning, medication reconciliation, and communication with other providers. Discharge Instructions Please refer to the electronic Patient Visit Report (Discharge Instructions) for additional information. Additional Copies To Latanya Renteria M.D.
[2016-11-28] MEDS ORDERED: SITA100T3 PO (15:30)
[2017-01-06] MEDS ORDERED: PRED1SUS OPL (07:58)
[2017-01-06] MEDS ORDERED: CIPR0.3S OPL (07:58)
== END 2016-08-26 17:00 | disposition home or self-care (01) ==
LOC: ENRESERVDT → ENRESERVTM → C.EDB 23:07 → C.MED 08-25 00:59
PROVIDERS: ADMIT Hospitalist; ATTEND Hospitalist
DX: R07.89 Other chest pain (principal); N28.9 Disorder of kidney and ureter, unspecified; E11.9 Type 2 diabetes mellitus without complications; I10 Essential (primary) hypertension; R10.13 Epigastric pain; E78.00 Pure hypercholesterolemia, unspecified; E03.9 Hypothyroidism, unspecified; K21.9 Gastro-esophageal reflux disease without esophagitis; E86.0 Dehydration; E66.3 Overweight; M10.9 Gout, unspecified; F32.9 Major depressive disorder, single episode, unspecified; Z90.49 Acquired absence of other specified parts of digestive tract; Z85.3 Personal history of malignant neoplasm of breast; Z92.3 Personal history of irradiation; Z82.49 Family history of ischemic heart disease and other diseases of the circulatory system

== ENCOUNTER 2016-09-08 10:00 | Emergency (ER) | payer OTHER ==
[~2016-09-08] VITALS: Ht 167.6 cm; Wt 89.5 kg
[~2016-09-08 10:00] MED LIST changes: -ALL100 PO; +ALLO100T PO; -ANAS1TAB6 PO; -ASPEC325 PO; -CYAN3INJ INJ; +CYNI1000 IM; +DOCU-94 PO; -GLC500 PO; +GLUCTAB7 PO; -LANS15CA24 PO; -LEVO75TA33 PO; +LEVO88TA3 PO; +METF1000 PO; -MISCTAB78 PO; +OMEP40CA41 PO; -PSYL55.43 PO; -SENNTAB23 PO; +SITA50TA3 PO; +SITA50TA5 PO
[2016-09-08 10:02] VITALS: TEMP 36.7; O2SAT 97; Ht 167.6 cm; Wt 89.5 kg
[2016-09-08] MEDS ORDERED: ONDANSETRON INJ 2 MG/ML 2 ML VIAL IV STA (10:16)
[2016-09-08] MEDS ORDERED: SODIUM CHLORIDE 0.9% 1000ML 1,000 ML IV STA (10:19)
--- NOTE | 2016-09-08 10:24 | EMERGENCY ROOM VISIT NOTE ---
History Report prepared by Rosaline: Nabil Bhakta Under the Supervision of: Dr. Charles Alcala D.O. First contact with patient: 10:08 Chief Complaint: FLANK PAIN Stated Complaint: RIGHT SIDE PAIN History of Present Illness The patient is a 80 year old female who presents to the Emergency Room with complaints of worsening right-sided flank pain that started a couple weeks ago. She says that she started getting the pain after bending over while cleaning out her freezer. The patient states that it started off as a soreness, but has recently become a sharp pain that is worsening. She notes that the pain is constant now. Movements exacerbate her pain, and holding still makes the pain a bit better. She denies any other symptoms, including nausea, vomiting, shortness of breath, back pain, chest pain, hematuria, abdominal pain, or leg swelling. She is diabetic and also has hypertension and hyperthyroidism. The patient has a history of multiple surgeries, including a cholecystectomy, hysterectomy, and intestinal, bladder, and knee replacement surgeries. She does not use tobacco products and she does not drink alcohol. The patient did not see her doctor for her pain. Source of History: patient Onset: A couple weeks ago Position: other (right flank) Quality: sharp Timing: worsening Associated Symptoms: No SOB, No abdominal pain, No chest pain, No nausea, No urinary symptoms, No vomiting Note: Associated symptoms: Denies leg swelling. Review of Systems See HPI for pertinent positives & negatives. A total of 10 systems reviewed and were otherwise negative. Past Medical & Surgical Medical Problems: (1) Chest pain (2) Diabetes (3) High cholesterol (4) Hypertension Surgical Problems: (1) History of cholecystectomy Family History Heart disease Social History Smoking Status: Never Smoker Smokeless Tobacco Use: No Drug Use: none Marital Status: Housing Status: lives with significant other Occupation Status: retired Current/Historical Medications Scheduled Allopurinol (Zyloprim), 100 MG PO DAILY Calcium Carbonate (Calcium Carbonate), 600 MG PO DAILY Cholecalciferol (Vitamin D), 5,000 UNIT PO DAILY Cyanocobalamin (Cyanocobalamin), 1 ML IM MONTHLY Docusate Sodium (Colace), 1 CAP PO DAILY Furosemide (Lasix), 20 MG PO DAILY Lskailxtlns-Lxossyvguyo-Znn C- (Glucosamine Chondroitin), 1 TAB PO DAILY Levothyroxine Sodium (Levothyroxine Sodium), 88 MCG PO DAILY Lisinopril (Zestril), 40 MG PO DAILY Metformin Hcl (Glucophage), 1,000 MG PO BID Multivitamin (Multivitamin), 1 TAB PO DAILY Omeprazole (Prilosec), 40 MG PO DAILY Sertraline (Zoloft), 200 MG PO DAILY Simvastatin (Zocor), 40 MG PO HS Sitagliptin (Januvia), 50 MG PO DAILY Sitagliptin-Metformin Hcl (Janumet), 1 TAB PO DAILY Scheduled PRN Oxycodone Immediate Rel Tab (Roxicodone Ir), 1-2 TAB PO Q4H PRN for Severe Pain Allergies Coded Allergies: Hydromorphone (Unverified Adverse Reaction, Severe, hallucinations, confusion, 09/08/16) Physical Exam Vital Signs Date Time Temp Pulse Resp B/P Pulse Ox O2 Delivery O2 Flow Rate FiO2 09/08/16 12:46 63 160/67 09/08/16 11:49 59 18 157/80 09/08/16 10:02 36.7 70 18 194/87 97 Room Air Physical Exam GENERAL: Patient is awake, alert, somewhat anxious and uncomfortable appearing. Appeared to be in significant pain. EYES: The conjunctivae are clear. The pupils are round and reactive. EARS, NOSE, MOUTH AND THROAT: The nose is without any evidence of any deformity. Mucous membranes are moist tongue is midline NECK: The neck is nontender and supple. RESPIRATORY: Normal respiratory effort is noted there is no evidence of wheezing rhonchi or rales CARDIOVASCULAR: Regular rate and rhythm noted there no murmurs rubs or gallops normal S1 normal S2 GASTROINTESTINAL: The abdomen is moderately distended but soft. Right upper quadrant tenderness to palpation noted, no specific guarding or rigidity noted. BACK: Right CVA tenderness to percussion. MUSCULOSKELETAL/EXTREMITIES: There is no evidence of gross deformity full range of motion is noted in the hips and shoulders SKIN: There is no obvious evidence of any rash. There are no petechiae, pallor or cyanosis noted. NEUROLOGIC: Patient is awake alert and oriented x3 strength is symmetric patellar reflexes are 2+ bilaterally Medical Decision & Procedures ER Provider Diagnostic Interpretation: Radiology results as stated below per my review and radiologist interpretation: CT SCAN OF THE ABDOMEN AND PELVIS WITHOUT IV CONTRAST CLINICAL HISTORY: Right upper abdominal injury. COMPARISON STUDY: No priors. TECHNIQUE: CT scan of the abdomen and pelvis is performed from the lung bases to the proximal femora. Images are reviewed in the axial, sagittal, and coronal planes. IV contrast was not administered for this examination as per the referring clinician. Note that the examination was performed in suboptimal fashion without oral and IV contrast. Automated dose control exposure was utilized. CT DOSE: 1079.24 mGycm FINDINGS: Lung bases: The heart is normal in size and without pericardial effusion. There is bibasilar scarring versus atelectasis. No airspace consolidation or pleural effusion is seen. Postoperative change is identified in the right breast. A small hiatal hernia is observed. Liver: The unenhanced liver is enlarged, measuring 20 cm in craniocaudal length. The liver demonstrates diffusely diminished attenuation consistent with hepatic steatosis. There is mild central intrahepatic biliary ductal dilatation. Gallbladder: Surgically absent noting clips in the gallbladder fossa. Spleen: Normal in size and attenuation. Pancreas: There is near complete fatty atrophy of the pancreas. Adrenal glands: Unremarkable. Kidneys: The unenhanced kidneys are atrophic and without hydronephrosis. There is a punctate nonobstructing calculus in the upper pole of the left kidney. No right renal calculi are identified. There is no evidence of contour deforming renal mass lesion. Abdominal vasculature: The abdominal aorta is normal in course and caliber noting mild to moderate atherosclerotic calcification. Bowel: There are postoperative changes from sigmoid colon resection with colocolonic anastomosis. No bowel obstruction is identified. There is mild diverticulosis of the remaining colon without CT evidence of acute diverticulitis. There is a large duodenal diverticulum identified on image #202. The appendix is well-visualized and normal. Peritoneum: There is no intraperitoneal free air or abdominal ascites. A midline surgical scar is noted. Lymphadenopathy: None. Pelvic viscera: The bladder is normal as visualized. The uterus is surgically absent. No adnexal lesion is seen. Skeletal structures: The skeletal structures are osteopenic. There is an acute appearing right anterolateral ninth rib fracture. No additional fracture is clearly seen. A hemangioma is noted in the body of L3. No lytic or blastic lesions are seen. There is mild lumbar sacral spondylosis. IMPRESSION: 1. Suboptimal examination without oral and IV contrast. 2. There is no evidence of solid organ injury in the abdomen or pelvis on this unenhanced examination. 3. There is an acute appearing and nondistracted right anterolateral ninth rib fracture. 4. There are postoperative changes from sigmoid colon resection with colocolonic anastomosis. No bowel obstruction is seen. 5. Hepatomegaly and hepatic steatosis. 6. Punctate nonobstructing left renal calculus. 7. Additional changes as detailed above. Electronically signed by: Ian Godwin M.D. 09/08/2016 11:11 AM Dictated Date/Time: 09/08/2016 11:03 AM RIGHT RIBS UNILATERAL WITH PA CHEST CLINICAL HISTORY: Right rib pain. COMPARISON STUDY: Chest radiograph August 24, 2016. FINDINGS: There is no pneumothorax or pleural effusion. Cardiomediastinal silhouette is stable. There is no evidence of pulmonary edema. There are multiple old right-sided rib fractures. The suspected acute nondisplaced fracture of the right ninth rib shown on CT is not evident on this exam, likely due to radiographic technique. IMPRESSION: No pneumothorax. No acute right-sided rib fractures identified by radiography. The probable acute nondisplaced right ninth rib fracture shown on CT is not well visualized on this exam due to radiographic technique. Electronically signed by: Kieran Choi M.D. 09/08/2016 12:43 PM Dictated Date/Time: 09/08/2016 12:39 PM Laboratory Results 09/08/16 10:30 Red Blood Count 4.31, Mean Corpuscular Volume 88.9, Mean Corpuscular Hemoglobin 29.2, Mean Corpuscular Hemoglobin Concent 32.9, Mean Platelet Volume 11.5, Neutrophils (%) (Auto) 77.4, Lymphocytes (%) (Auto) 15.8, Monocytes (%) (Auto) 5.7, Eosinophils (%) (Auto) 0.7, Basophils (%) (Auto) 0.1, Neutrophils # (Auto) 5.59, Lymphocytes # (Auto) 1.14, Monocytes # (Auto) 0.41, Eosinophils # (Auto) 0.05, Basophils # (Auto) 0.01 09/08/16 10:30 Test 09/08/16 10:30 09/08/16 10:45 White Blood Count 7.22 K/uL (4.8-10.8) Red Blood Count 4.31 M/uL (4.2-5.4) Hemoglobin 12.6 g/dL (12.0-16.0) Hematocrit 38.3 % (37-47) Mean Corpuscular Volume 88.9 fL (80-100) Mean Corpuscular Hemoglobin 29.2 pg (25-34) Mean Corpuscular Hemoglobin Concent 32.9 g/dl (32-36) Platelet Count 177 K/uL (130-400) Mean Platelet Volume 11.5 fL (7.4-10.4) Neutrophils (%) (Auto) 77.4 % Lymphocytes (%) (Auto) 15.8 % Monocytes (%) (Auto) 5.7 % Eosinophils (%) (Auto) 0.7 % Basophils (%) (Auto) 0.1 % Neutrophils # (Auto) 5.59 K/uL (1.4-6.5) Lymphocytes # (Auto) 1.14 K/uL (1.2-3.4) Monocytes # (Auto) 0.41 K/uL (0.11-0.59) Eosinophils # (Auto) 0.05 K/uL (0-0.5) Basophils # (Auto) 0.01 K/uL (0-0.2) RDW Standard Deviation 48.4 fL (36.4-46.3) RDW Coefficient of Variation 14.9 % (11.5-14.5) Immature Granulocyte % (Auto) 0.3 % Immature Granulocyte # (Auto) 0.02 K/uL (0.00-0.02) Prothrombin Time 11.5 SECONDS (9.0-12.0) Prothromb Time International Ratio 1.1 (0.9-1.1) Activated Partial Thromboplast Time 25.2 SECONDS (21.0-31.0) Partial Thromboplastin Ratio 1.0 Anion Gap 8.0 mmol/L (3-11) Est Creatinine Clear Calc Drug Dose 52.2 ml/min Estimated GFR () 62.5 Estimated GFR (Non- 53.9 BUN/Creatinine Ratio 14.6 (10-20) Calcium Level 9.7 mg/dl (8.5-10.1) Total Bilirubin 0.3 mg/dl (0.2-1) Direct Bilirubin < 0.1 mg/dl (0-0.2) Aspartate Amino Transf (AST/SGOT) 14 U/L (15-37) Alanine Aminotransferase (ALT/SGPT) 32 U/L (12-78) Alkaline Phosphatase 108 U/L (45-117) Total Creatine Kinase 55 U/L (26-192) Creatine Kinase MB 0.9 ng/ml (0.5-3.6) Creatine Kinase MB Ratio 1.6 (0-3.0) Troponin I < 0.015 ng/ml (0-0.045) Total Protein 7.5 gm/dl (6.4-8.2) Albumin 3.8 gm/dl (3.4-5.0) Lipase 106 U/L (73-393) Urine Color YELLOW Urine Appearance CLEAR (CLEAR) Urine pH 6.0 (4.5-7.5) Urine Specific [place] 1.015 (1.000-1.030) Urine Protein NEG (NEG) Urine Glucose (UA) NEG (NEG) Urine Ketones NEG (NEG) Urine Occult Blood TRACE (NEG) Urine Nitrite NEG (NEG) Urine Bilirubin NEG (NEG) Urine Urobilinogen NEG (NEG) Urine Leukocyte Esterase SMALL (NEG) Urine WBC (Auto) 1-5 /hpf (0-5) Urine RBC (Auto) 0-4 /hpf (0-4) Urine Hyaline Casts (Auto) 1-5 /lpf (0-5) Urine Epithelial Cells (Auto) >30 /lpf (0-5) Urine Bacteria (Auto) NEG (NEG) Laboratory results per my review. Medications Administered Medications (Trade) Dose Ordered Sig/Cathy Route Start Time Stop Time Status Last Admin Dose Admin Ondansetron HCl (Zofran Inj) 4 mg NOW STAT IV 09/08/16 10:16 09/08/16 10:19 DC 09/08/16 10:41 4 MG Morphine Sulfate 4 mg 4 mg Q15M PRN IV 09/08/16 10:30 09/08/16 13:48 DC 09/08/16 12:45 4 MG Sodium Chloride (Nss 1000ml) 1,000 ml @ 125 mls/hr Q8H STAT IV 09/08/16 10:19 09/08/16 13:48 DC 09/08/16 10:42 125 MLS/HR ECG Indication: other (flank pain) Rate (beats per minute): 61 Rhythm: normal sinus Findings: no ectopy, other (no acute ST segment abnormalities) Change: no significant change (from August 25 2016) ED Course 1009: The patient was evaluated in room B6. A complete history and physical examination were performed. 1016: Ordered Zofran Inj 4 mg IV. 1019: Ordered NSS 1000 ml @ 125 mls/hr IV. 1030: Ordered Morphine Sulfate Inj 4 mg IV PRN. 1230: Upon reevaluation, the patient is resting comfortably. I discussed the results and treatment plan with her. She verbalized agreement of the treatment plan. She will be discharged home. Medical Decision Prior records/ancillary studies reviewed. Triage Nursing notes reviewed. Differential diagnosis: Etiologies such as cardiac ischemia, aortic dissection, pulmonary embolism, pneumonia, pneumothorax, musculoskeletal, infections, pericarditis, myocarditis , esophageal rupture, gastrointestinal, as well as others were entertained. The patient is a 80-year-old female who presented to the emergency department for an evaluation of right-sided chest pain. The patient states that she had an acute onset of pain recently when she was leaning over her kitchen counter. She had reproducible pain in the right upper quadrant as well as the right chest wall. The patient's laboratory and radiographic studies appear to be consistent with a rib fracture. The patient was treated with IV pain medication and IV antiemetics in the emergency department. On subsequent reevaluation she was feeling much better. She was encouraged to rest and avoid any strenuous activity. I discussed the patient's laboratory and radiographic studies with her. She was encouraged to call her primary care physician to schedule a follow- up appointment and rest but return to the emergency department immediately if symptoms change worsen or the need arises. Impression Primary Impression: Right rib fracture Scribe Attestation The scribe's documentation has been prepared under my direction and personally reviewed by me in its entirety. I confirm that the note above accurately reflects all work, treatment, procedures, and medical decision making performed by me. Departure Information Dispostion Home / Self-Care Prescriptions Oxycodone Immediate Rel Tab (ROXICODONE IR) 5 Mg Tab 1-2 TAB PO Q4H Y for Severe Pain, #24 TAB Prov: Charles Alcala, 09/08/16 Referrals Latanya Renteria M.D. (PCP) Forms HOME CARE DOCUMENTATION FORM, IMPORTANT VISIT INFORMATION Patient Instructions Fx Zaheer, My [facility] Additional Instructions Continue using Motrin and Tylenol as directed for mild pain. Rest and avoid any strenuous activity. Follow-up with your family doctor soon as possible. If you decide to use a stronger pain medication I would recommend taking an over-the- counter laxative such as Colace. Problem Qualifiers Primary Impression: Right rib fracture Encounter type: initial encounter Rib fracture type: single rib Fracture type: closed Qualified Codes: S22.31XA - Fracture of one rib, right side, initial encounter for closed fracture
[2016-09-08] MEDS: MoRPHine SULFATE 4 MG/ML 1 ML CARP\\VIAL IV PRN ×2 (10:42→12:45)
[2016-09-08 10:47] LABS: BASO % 0.1 %; BASO ABS # 0.01 K/uL (0-0.2); COMPLETE YES; EOS % 0.7 %; HEMATOCRIT 38.3 % (37-47); IG% 0.3 %; LYMPH % 15.8 %; LYMPH ABS # 1.14 K/uL (1.2-3.4); MEAN CELL VOLUME 88.9 fL (80-100); MEAN CORPUSCULAR HEMOGLOBIN 29.2 pg (25-34); MEAN CORPUSCULAR HGB CONC 32.9 g/dl (32-36); MEAN PLATELET VOLUME 11.5 fL (7.4-10.4); MONO % 5.7 %; NEUT % 77.4 %; PLATELET COUNT 177 K/uL (130-400); RED BLOOD COUNT 4.31 M/uL (4.2-5.4); WHITE BLOOD COUNT 7.22 K/uL (4.8-10.8)
[2016-09-08 10:57] LABS: INR 1.1 (0.9-1.1); PROTHROMBIN TIME (PATIENT) 11.5 SECONDS (9.0-12.0)
[2016-09-08 11:04] LABS: ALT/SGPT 32 U/L (12-78); AST/SGOT 14 U/L (15-37); BLOOD UREA NITROGEN 15 mg/dl (7-18); BUN/CREATININE RATIO 14.6 (10-20); CALCIUM 9.7 mg/dl (8.5-10.1); CARBON DIOXIDE 30 mmol/L (21-32); CHLORIDE 103 mmol/L (98-107); GLUCOSE 192 mg/dl (70-99); SODIUM 141 mmol/L (136-145)
[2016-09-08 11:09] LABS: ALKALINE PHOSPHATASE 108 U/L (45-117); CKMB/CK RATIO 1.6 (0-3.0)
--- NOTE | 2016-09-08 11:13 | DIAGNOSTIC IMAGING REPORT ---
CT SCAN OF THE ABDOMEN AND PELVIS WITHOUT IV CONTRAST CLINICAL HISTORY: Right upper abdominal injury. COMPARISON STUDY: No priors. TECHNIQUE: CT scan of the abdomen and pelvis is performed from the lung bases to the proximal femora. Images are reviewed in the axial, sagittal, and coronal planes. IV contrast was not administered for this examination as per the referring clinician. Note that the examination was performed in suboptimal fashion without oral and IV contrast. Automated dose control exposure was utilized. CT DOSE: 1079.24 mGycm FINDINGS: Lung bases: The heart is normal in size and without pericardial effusion. There is bibasilar scarring versus atelectasis. No airspace consolidation or pleural effusion is seen. Postoperative change is identified in the right breast. A small hiatal hernia is observed. Liver: The unenhanced liver is enlarged, measuring 20 cm in craniocaudal length. The liver demonstrates diffusely diminished attenuation consistent with hepatic steatosis. There is mild central intrahepatic biliary ductal dilatation. Gallbladder: Surgically absent noting clips in the gallbladder fossa. Spleen: Normal in size and attenuation. Pancreas: There is near complete fatty atrophy of the pancreas. Adrenal glands: Unremarkable. Kidneys: The unenhanced kidneys are atrophic and without hydronephrosis. There is a punctate nonobstructing calculus in the upper pole of the left kidney. No right renal calculi are identified. There is no evidence of contour deforming renal mass lesion. Abdominal vasculature: The abdominal aorta is normal in course and caliber noting mild to moderate atherosclerotic calcification. Bowel: There are postoperative changes from sigmoid colon resection with colocolonic anastomosis. No bowel obstruction is identified. There is mild diverticulosis of the remaining colon without CT evidence of acute diverticulitis. There is a large duodenal diverticulum identified on image #202. The appendix is well-visualized and normal. Peritoneum: There is no intraperitoneal free air or abdominal ascites. A midline surgical scar is noted. Lymphadenopathy: None. Pelvic viscera: The bladder is normal as visualized. The uterus is surgically absent. No adnexal lesion is seen. Skeletal structures: The skeletal structures are osteopenic. There is an acute appearing right anterolateral ninth rib fracture. No additional fracture is clearly seen. A hemangioma is noted in the body of L3. No lytic or blastic lesions are seen. There is mild lumbar sacral spondylosis. IMPRESSION: 1. Suboptimal examination without oral and IV contrast. 2. There is no evidence of solid organ injury in the abdomen or pelvis on this unenhanced examination. 3. There is an acute appearing and nondistracted right anterolateral ninth rib fracture. 4. There are postoperative changes from sigmoid colon resection with colocolonic anastomosis. No bowel obstruction is seen. 5. Hepatomegaly and hepatic steatosis. 6. Punctate nonobstructing left renal calculus. 7. Additional changes as detailed above. Electronically signed by: Ian Godwin M.D. 09/08/2016 11:11 AM Dictated Date/Time: 09/08/2016 11:03 AM
[2016-09-08] MEDS ORDERED: OXYC1TAB3 PO (12:27)
--- NOTE | 2016-09-08 12:45 | DIAGNOSTIC IMAGING REPORT ---
RIGHT RIBS UNILATERAL WITH PA CHEST CLINICAL HISTORY: Right rib pain. COMPARISON STUDY: Chest radiograph August 24, 2016. FINDINGS: There is no pneumothorax or pleural effusion. Cardiomediastinal silhouette is stable. There is no evidence of pulmonary edema. There are multiple old right-sided rib fractures. The suspected acute nondisplaced fracture of the right ninth rib shown on CT is not evident on this exam, likely due to radiographic technique. IMPRESSION: No pneumothorax. No acute right-sided rib fractures identified by radiography. The probable acute nondisplaced right ninth rib fracture shown on CT is not well visualized on this exam due to radiographic technique. Electronically signed by: Kieran Choi M.D. 09/08/2016 12:43 PM Dictated Date/Time: 09/08/2016 12:39 PM
[2016-09-08 12:46] VITALS: BP 160/67; PULSE 63
[2016-09-08 13:06] LABS: URINE APPEARANCE CLEAR (CLEAR); URINE BILIRUBIN NEG (NEG); URINE COLOR YELLOW; URINE EPITHELIAL CELL AUTO >30 /lpf (0-5); URINE NITRITE NEG (NEG); URINE SPECIFIC GRAVITY 1.015 (1.000-1.030); UROBILINOGEN NEG (NEG)
[2016-09-08 13:14] LABS: MANUAL MICROSCOPIC REQUIRED? NO; REVIEW REQ? NO
[2016-11-28] MEDS ORDERED: SITA100T3 PO (15:30)
[2017-01-06] MEDS ORDERED: CIPR0.3S OPL (07:58)
[2017-01-06] MEDS ORDERED: PRED1SUS OPL (07:58)
== END 2016-09-08 13:14 | disposition home or self-care (01) ==
LOC: C.EDB 10:02
DX: S22.31XA Fracture of one rib, right side, initial encounter for closed fracture (principal); X58.XXXA Exposure to other specified factors, initial encounter; Y93.89 Activity, other specified; E11.9 Type 2 diabetes mellitus without complications; I10 Essential (primary) hypertension; Z90.49 Acquired absence of other specified parts of digestive tract; E05.90 Thyrotoxicosis, unspecified without thyrotoxic crisis or storm; Z90.710 Acquired absence of both cervix and uterus; Z96.659 Presence of unspecified artificial knee joint; Z79.899 Other long term (current) drug therapy

== ENCOUNTER → 2016-09-12 | Outpatient (CLI) | payer OTHER ==
[~2016-09-12] MED LIST changes: +CIPR0.3S OPL; +OXYC1TAB3 PO; +PRED1SUS OPL; +SITA100T3 PO
[2016-09-12 18:11] LABS: BLOOD UREA NITROGEN 12 mg/dl (7-18); BUN/CREATININE RATIO 11.3 (10-20); CALCIUM 9.5 mg/dl (8.5-10.1); CARBON DIOXIDE 30 mmol/L (21-32); CHLORIDE 108 mmol/L (98-107); GLUCOSE 205 mg/dl (70-99); PHOSPHORUS 2.4 mg/dl (2.5-4.9); POTASSIUM 4.1 mmol/L (3.5-5.1); SODIUM 143 mmol/L (136-145)
[2016-09-13 06:23] LABS: ESTIMATED AVERAGE GLUCOSE 174 mg/dl; HA1C FLAG Normal (Normal)
== END | disposition home or self-care (01) ==
LOC: C.LABMFLN 13:54
PROVIDERS: ATTEND Family Medicine
DX: E11.9 Type 2 diabetes mellitus without complications (principal)

== ENCOUNTER → 2016-12-22 | Day surgery (SDC) | payer OTHER ==
[2016-11-28 15:31] VITALS: Ht 167.6 cm; Wt 87.3 kg
[~2016-12-22] VITALS: Ht 167.6 cm; Wt 87.3 kg
[~2016-12-22] MED LIST changes: +500ML BSS 0.3ML EPI 1:1000PF IRRIG ONE; +ACETAMINOPHEN 325 MG TAB PO PRN; +AMVISC PLUS 0.8ML SYRINGE INT OCU ONE; +ATROPINE SULFATE 0.1 MG/ML 5ML SYR IV PRN; +BRIMONIDINE TART 0.2% OP SOLN PER DROP CHARGE ONE; +BSS FLUSH ONE; +ENDOCOAT 0.85ML SYRINGE INT OCU ONE; +EpHEDrine SULFATE INJ 50 MG/ML AMP IV PRN; +EpINEphrine INJ 1MG/ML AMP 1 MG/ML AMP ONE; +LACTATED RINGER'S 1000ML 500 ML IV SCH; +LIDOCAINE 4% OP SOLN DROP CHARGE ONE; +LIDOCAINE 4% OP SOLN DROP CHARGE OPL SCH; +LIDOCAINE HCL 1% MPF 2 ML VIAL ONE; +MIDAZOLAM HCL 1 MG/ML 2ML VIAL ONE; +MOXIFLOXACIN OPH SOLN PER DROP CHARGE ONE; +ONDANSETRON INJ 2 MG/ML 2 ML VIAL IV PRN; -OXYC1TAB3 PO; +POVIDONE-IODINE OP SOLN 30 ML BTL ONE; +PROPARACAINE 0.5% OP SOLN PER DROP CHARGE OPL SCH; -SITA50TA3 PO; -SITA50TA5 PO; +TOBRAMYCIN/DEXAMETHASONE OPH OINT PER APPLN CHARGE ONE
[2016-12-22] MEDS: PHENYLEPHRINE HCL 2.5% OP SOLN PER DROP CHARGE OPL SCH ×2 (06:43→06:48)
[2016-12-22] MEDS: TROPICAMIDE 1% OP SOLN PER DROP CHARGE OPL SCH ×2 (06:44→06:49)
[2016-12-22] MEDS: CYCLOPENTOLATE HCL 1% OP SOLN PER DROP CHARGE OPL SCH ×2 (06:45→06:50)
[2016-12-22] MEDS: KETOROLAC 0.5% OP SOLN PER DROP CHARGE OPL SCH ×2 (06:46→06:51)
[2016-12-22] MEDS: MOXIFLOXACIN OPH SOLN PER DROP CHARGE OPL SCH ×2 (06:47→06:58)
--- NOTE | 2016-12-22 07:33 | History & Physical Bridge - SC ---
H&P Re-Evaluation Bridge Note: I have examined the patient, reviewed the History & Physical and in the interval since the performance of the History & Physical I have noted the following changes of clinical significance: No changes noted
--- NOTE | 2016-12-22 07:56 | Discharge Instructions-SurgCtr ---
Discharge Instructions Date of Service Dec 22, 2016. Visit Reason for Visit: Cataract Left Eye Discharge Discharge Diagnosis / Problem: cataract left eye Discharge Goals Goal(s): Improve function Activity Recommendations Activity Limitations: per Instructions/Follow-up section Lifting Limitations: no more than 5 pounds Anesthesia . Post Anesthesia Instructions: If you have had General Anesthesia or IV Sedation: * Do not drive today. * Resume driving when surgeon permits. * Do not make important decisions or sign legal documents today. * Call surgeon for: 1. Temperature elevations greater than 101 degrees F. 2. Uncontrollable pain. 3. Excessive bleeding. 4. Persistent nausea and vomiting. 5. Medication intolerance (nausea, vomiting or rash). * For nausea and vomiting use only clear liquids such as: tea, soda, bouillon until nausea subsides, then gradually increase diet as tolerated. * If you have any concerns or questions, call your surgeon's office. If physician is unavailable and it is an emergency, call 911 or go to the nearest emergency room. . Instructions / Follow-Up Instructions / Follow-Up ACTIVITY RECOMMENDATIONS: * Light activities * You may walk outside, read, watch television. * Mild irritation and blurred vision are common for the first few days, redness around the white part of the eye is common. MEDICATIONS: Resume previous medications unless instructed otherwise by your surgeon. Eye drops (today and tomorrow): Cipro - one drop in operative eye every 2 hours while awake Prednisolone 1% - one drop in operative eye every 2 hours while awake Bromfenac - one drop in operative eye once daily SPECIAL CARE INSTRUCTIONS: * If any problems or concerns, please call Dr. Almodovar's office at . * Keep plastic shield taped over eye to sleep at night. * Keep plastic shield taped over eye except to administer eye drops. * Keep plastic shield on until office visit the following day. FOLLOW UP VISIT: Follow-up with Dr. Almodovar in the [place] office as scheduled. If not already scheduled, please call the office at . Diet Recommendations Home Diet: resume previous diet Procedures Procedures Performed: Left Eye Cataract Phacoemulsification With Intraocular Lens Implant Pending Studies Studies pending at discharge: no Medical Emergencies . Who to Call and When: Medical Emergencies: If at any time you feel your situation is an emergency, please call 911 immediately. . Non-Emergent Contact Non-Emergency issues call your: [employer] Technician . . "Provider Documentation" section prepared by John Almodovar. .
[2016-12-22 07:58] VITALS: TEMP 36.8
--- NOTE | 2016-12-22 07:58 | [facility] Operative Report ---
Operative Report Operative Date Dec 22, 2016. Pre-Operative Diagnosis Left Eye Cataract Post-Operative Diagnosis Same Procedure(s) Performed Left Eye Cataract Phacoemulsification With Intraocular Lens Implant Surgeon Dr. Almodovar Solution Spec Surgeon(s) None Estimated Blood Loss None Findings cataract left eye Fluids (cc crystalloids) see anesthesia record Specimens None Drains none Anesthesia local with sedation Complication(s) None Disposition Recovery Room / PACU Implants MX60 21.0 Indications decreased vision left eye Description of Procedure After informed consent was obtained in the holding area the patient was wheeled back to the operating room where cardiac monitoring leads and oxygen by nasal cannula was administered by Anesthesia. Gentle IV sedation was given, and the patient's left eye was prepped and draped in usual sterile fashion. A wire lid speculum was placed into the left eye and the operating microscope was swung into position. Using 0.12 forceps and a Supersharp blade a paracentesis port was made 3 o'clock hours away from the 3 o'clock position of the patient's left eye. 1% non-preserved Lidocaine was then injected into the anterior chamber for anesthesia. A 2.2 mm keratotome blade was then used to make a shelved clear corneal incision at the 3 o'clock position of the left eye. Amvisc was injected into the anterior chamber and a cystotome and Utrata forceps were used to perform a curvilinear capsulorrhexis. BSS on a hydrodissection cannula was used to hydrodissect the lens nucleus away from the capsular bag. The phacoemulsification handpiece was then used in a stop and chop fashion to remove the lens nucleus. The irrigation and aspiration handpiece was then used to remove the residual cortical material. Amvisc was injected into the capsular bag and anterior chamber and a [employer]ch [employer] Lomb MX60 21.0 Diopter intraocular lens was injected into the capsular bag. Irrigation and aspiration handpiece was used to remove the residual viscoelastic material. The wounds were hydrated and noted to be watertight. The wire lid speculum was removed from the eye. Vigamox, Brimonidine, and TobraDex ointment were placed on the eye and it was shielded. It should be noted that EndoCoat was used extensively during the case to protect the cornea endothelium. DISPOSITION: The patient tolerated the procedure well and was wheeled to the post anesthesia care unit in stable condition. I attest to the content of the Intraoperative Record and any orders documented therein. Any exceptions are noted below. I attest to the content of the Intraoperative Record and any orders documented therein. Any exceptions are noted below.
[2016-12-22 08:31] VITALS: BP 146/82; PULSE 58; O2SAT 98
--- NOTE | 2016-12-22 08:36 | Anesthesia Progress Nt - [facility] ---
Anesthesia Post Op Note Date & Time Dec 22, 2016 at 08:36 Vital Signs Pain Intensity: 0 Vital Signs Past 12 Hours Date Time Temp Pulse Resp B/P (MAP) Pulse Ox O2 Delivery O2 Flow Rate FiO2 12/22/16 08:31 58 16 146/82 (103) 98 Room Air 12/22/16 07:58 36.8 60 16 141/82 (101) 98 Room Air 12/22/16 06:34 36.7 60 16 150/82 (104) 96 Room Air Notes Mental Status: alert / awake / arousable, participated in evaluation Pt Amnestic to Procedure: Yes Nausea / Vomiting: adequately controlled Pain: adequately controlled Airway Patency, RR, SpO2: stable & adequate BP & HR: stable & adequate Hydration State: stable & adequate Anesthetic Complications: no major complications apparent
== END | disposition home or self-care (01) ==
LOC: X.SURG 06:02
PROVIDERS: ATTEND Ophthalmology
DX: H25.12 Age-related nuclear cataract, left eye (principal); I10 Essential (primary) hypertension; E11.9 Type 2 diabetes mellitus without complications; Z85.3 Personal history of malignant neoplasm of breast; Z90.710 Acquired absence of both cervix and uterus; E78.00 Pure hypercholesterolemia, unspecified; F32.9 Major depressive disorder, single episode, unspecified; Z96.659 Presence of unspecified artificial knee joint; Z83.3 Family history of diabetes mellitus; Z79.84 Long term (current) use of oral hypoglycemic drugs; G47.30 Sleep apnea, unspecified; Z90.49 Acquired absence of other specified parts of digestive tract; Z96.653 Presence of artificial knee joint, bilateral; E78.5 Hyperlipidemia, unspecified; Z86.718 Personal history of other venous thrombosis and embolism

== ENCOUNTER → 2016-12-29 | Outpatient (CLI) | payer OTHER ==
[~2016-12-29] MED LIST changes: -500ML BSS 0.3ML EPI 1:1000PF IRRIG ONE; -ACETAMINOPHEN 325 MG TAB PO PRN; -AMVISC PLUS 0.8ML SYRINGE INT OCU ONE; -ATROPINE SULFATE 0.1 MG/ML 5ML SYR IV PRN; -BRIMONIDINE TART 0.2% OP SOLN PER DROP CHARGE ONE; -BSS FLUSH ONE; -ENDOCOAT 0.85ML SYRINGE INT OCU ONE; -EpHEDrine SULFATE INJ 50 MG/ML AMP IV PRN; -EpINEphrine INJ 1MG/ML AMP 1 MG/ML AMP ONE; -LACTATED RINGER'S 1000ML 500 ML IV SCH; -LIDOCAINE 4% OP SOLN DROP CHARGE ONE; -LIDOCAINE 4% OP SOLN DROP CHARGE OPL SCH; -LIDOCAINE HCL 1% MPF 2 ML VIAL ONE; -MIDAZOLAM HCL 1 MG/ML 2ML VIAL ONE; -MOXIFLOXACIN OPH SOLN PER DROP CHARGE ONE; -ONDANSETRON INJ 2 MG/ML 2 ML VIAL IV PRN; -POVIDONE-IODINE OP SOLN 30 ML BTL ONE; -PROPARACAINE 0.5% OP SOLN PER DROP CHARGE OPL SCH; -TOBRAMYCIN/DEXAMETHASONE OPH OINT PER APPLN CHARGE ONE
[2016-12-29 13:31] LABS: BLOOD UREA NITROGEN 22 mg/dl (7-18); BUN/CREATININE RATIO 19.8 (10-20); CALCIUM 9.8 mg/dl (8.5-10.1); CARBON DIOXIDE 28 mmol/L (21-32); CHLORIDE 105 mmol/L (98-107); GLUCOSE 155 mg/dl (70-99); POTASSIUM 3.9 mmol/L (3.5-5.1); SODIUM 141 mmol/L (136-145)
[2016-12-29 13:32] LABS: ESTIMATED AVERAGE GLUCOSE 174 mg/dl; HA1C FLAG Normal (Normal)
[2016-12-29 13:42] LABS: PHOSPHORUS 2.6 mg/dl (2.5-4.9)
== END | disposition home or self-care (01) ==
LOC: C.LABMFLN 11:15
PROVIDERS: ATTEND Family Medicine
DX: E03.9 Hypothyroidism, unspecified (principal); E11.9 Type 2 diabetes mellitus without complications

== ENCOUNTER → 2017-01-26 | Day surgery (SDC) | payer OTHER ==
[2017-01-06 08:00] VITALS: Ht 167.6 cm; Wt 87.3 kg
[~2017-01-26] VITALS: Ht 167.6 cm; Wt 87.3 kg
[~2017-01-26] MED LIST changes: +500ML BSS 0.3ML EPI 1:1000PF IRRIG ONE; +ACETAMINOPHEN 325 MG TAB PO PRN; +AMVISC PLUS 0.8ML SYRINGE INT OCU ONE; +ATROPINE SULFATE 0.1 MG/ML 5ML SYR IV PRN; +BRIMONIDINE TART 0.2% OP SOLN PER DROP CHARGE ONE; +BSS FLUSH ONE; +BUPIVACAINE HCL 0.75% 10 ML AMP/VIAL ONE; +ENDOCOAT 0.85ML SYRINGE INT OCU ONE; +EpHEDrine SULFATE INJ 50 MG/ML AMP IV PRN; +EpINEphrine INJ 1MG/ML AMP 1 MG/ML AMP ONE; +LACTATED RINGER'S 1000ML 500 ML IV SCH; +LIDO 2%/EPINEPHRINE 1:100000 20 ML VIAL INFIL ONE; +LIDOCAINE 4% OP SOLN DROP CHARGE ONE; +LIDOCAINE 4% OP SOLN DROP CHARGE OPR SCH; +MIDAZOLAM HCL 1 MG/ML 2ML VIAL ONE; +MOXIFLOXACIN OPH SOLN PER DROP CHARGE ONE; +POVIDONE-IODINE OP SOLN 30 ML BTL ONE; +PROPARACAINE 0.5% OP SOLN PER DROP CHARGE OPR SCH; +TOBRAMYCIN/DEXAMETHASONE OPH OINT PER APPLN CHARGE ONE
[2017-01-26] MEDS: PHENYLEPHRINE HCL 2.5% OP SOLN PER DROP CHARGE OPR SCH ×2 (06:34→06:39)
[2017-01-26] MEDS: TROPICAMIDE 1% OP SOLN PER DROP CHARGE OPR SCH ×2 (06:35→06:40)
[2017-01-26] MEDS: CYCLOPENTOLATE HCL 1% OP SOLN PER DROP CHARGE OPR SCH ×2 (06:36→06:41)
[2017-01-26] MEDS: KETOROLAC 0.5% OP SOLN PER DROP CHARGE OPR SCH ×2 (06:37→06:42)
[2017-01-26] MEDS: MOXIFLOXACIN OPH SOLN PER DROP CHARGE OPR SCH ×2 (06:38→06:48)
--- NOTE | 2017-01-26 06:53 | History & Physical Bridge - [place] ---
H&P Re-Evaluation Bridge Note: I have examined the patient, reviewed the History & Physical and in the interval since the performance of the History & Physical I have noted the following changes of clinical significance: patient having right upper lid lesion removed as well
[2017-01-26] MEDS: LIDOCAINE HCL 1% MPF 2 ML VIAL ONE ×2 (07:11→07:13)
--- NOTE | 2017-01-26 07:34 | Discharge Instructions-SurgCtr ---
Discharge Instructions Date of Service Jan 26, 2017. Visit Reason for Visit: Right Eye Cataract And Lesion Upper Lid Discharge Discharge Diagnosis / Problem: cataract right eye/ lid lesion right upper lid Discharge Goals Goal(s): Improve function Activity Recommendations Activity Limitations: per Instructions/Follow-up section Lifting Limitations: no more than 5 pounds Anesthesia . Post Anesthesia Instructions: If you have had General Anesthesia or IV Sedation: * Do not drive today. * Resume driving when surgeon permits. * Do not make important decisions or sign legal documents today. * Call surgeon for: 1. Temperature elevations greater than 101 degrees F. 2. Uncontrollable pain. 3. Excessive bleeding. 4. Persistent nausea and vomiting. 5. Medication intolerance (nausea, vomiting or rash). * For nausea and vomiting use only clear liquids such as: tea, soda, bouillon until nausea subsides, then gradually increase diet as tolerated. * If you have any concerns or questions, call your surgeon's office. If physician is unavailable and it is an emergency, call 911 or go to the nearest emergency room. . Instructions / Follow-Up Instructions / Follow-Up ACTIVITY RECOMMENDATIONS: * Light activities * You may walk outside, read, watch television. * Mild irritation and blurred vision are common for the first few days, redness around the white part of the eye is common. MEDICATIONS: Resume previous medications unless instructed otherwise by your surgeon. Eye drops (today and tomorrow): Cipro - one drop in operative eye every 2 hours while awake Prednisolone 1% - one drop in operative eye every 2 hours while awake Bromfenac - one drop in operative eye once daily Erythromycin ointment - apply to right upper lid 3 times daily SPECIAL CARE INSTRUCTIONS: * If any problems or concerns, please call Dr. Almodovar's office at . * Keep plastic shield taped over eye to sleep at night. * Keep plastic shield taped over eye except to administer eye drops. * Keep plastic shield on until office visit the following day. FOLLOW UP VISIT: Follow-up with Dr. Almodovar in the [place] office as scheduled. If not already scheduled, please call the office at . Diet Recommendations Home Diet: resume previous diet Procedures Procedures Performed: Right Cataract Phacoemulsification With Intraocular Lens Implant; Right Upper Lid Lesion Removal Pending Studies Studies pending at discharge: yes List of pending studies: lid lesion pathology Medical Emergencies . Who to Call and When: Medical Emergencies: If at any time you feel your situation is an emergency, please call 911 immediately. . Non-Emergent Contact Non-Emergency issues call your: Detention Worker . . "Provider Documentation" section prepared by John Almodovar. .
[2017-01-26 07:35] VITALS: TEMP 36.8
--- NOTE | 2017-01-26 07:37 | [facility] Operative Report ---
Operative Report Operative Date Jan 26, 2017. Pre-Operative Diagnosis Right Eye Cataract, Upper Lid Lesion Post-Operative Diagnosis Same Procedure(s) Performed Right Cataract Phacoemulsification With Intraocular Lens Implant; Right Upper Lid Lesion Removal Surgeon Dr Almodovar Radio Assembler Surgeon(s) None Estimated Blood Loss 0ml Findings cataract right eye/ lid lesion right upper lid Fluids (cc crystalloids) see anesthesia record Specimens A: Right Eye Upper Lid Lesion Drains none Anesthesia local with sedation Complication(s) None Disposition Recovery Room / PACU Implants mx60 21.0 Indications decreased vision right eye/ lesion right upper lid Description of Procedure After informed consent was obtained in the holding area the patient was wheeled back to the operating room where cardiac monitoring leads and oxygen by nasal cannula was administered by Anesthesia. Gentle IV sedation was given, and the patient's right eye was prepped and draped in usual sterile fashion. A wire lid speculum was placed into the right eye and the operating microscope was swung into position. Using 0.12 forceps and a Supersharp blade a paracentesis port was made 2 o'clock hours away from the 9 o'clock position of the patient's right eye. 1% non-preserved Lidocaine was then injected into the anterior chamber for anesthesia. A 2.0 mm keratotome blade was then used to make a shelved clear corneal incision at the 9 o'clock position of the right eye. Amvisc was injected into the anterior chamber and a cystotome and Utrata forceps were used to perform a curvilinear capsulorrhexis. BSS on a hydrodissection cannula was used to hydrodissect the lens nucleus away from the capsular bag. The phacoemulsification handpiece was then used in a stop and chop fashion to remove the lens nucleus. The irrigation and aspiration handpiece was then used to remove the residual cortical material. Amvisc was injected into the capsular bag and anterior chamber and a Bausch & Lomb MX60 21.0 Diopter intraocular lens was injected into the capsular bag. Irrigation and aspiration handpiece was used to remove the residual viscoelastic material. The wounds were hydrated and noted to be watertight. The wire lid speculum was removed from the eye. Attention was then turned to the right upper lid lesion which was infiltrated with 2% lidocaine with epi. It was then grasped with 0.12 forceps and excised using Shawn scissors. Hemostasis was achieved with low temp cautery. Vigamox, Brimonidine, and TobraDex ointment were placed on the eye and it was shielded. It should be noted that EndoCoat was used extensively during the case to protect the cornea endothelium. DISPOSITION: The patient tolerated the procedure well and was wheeled to the post anesthesia care unit in stable condition. I attest to the content of the Intraoperative Record and any orders documented therein. Any exceptions are noted below. I attest to the content of the Intraoperative Record and any orders documented therein. Any exceptions are noted below.
[2017-01-26 07:55] VITALS: BP 162/83; PULSE 51; O2SAT 97
--- NOTE | 2017-01-26 08:01 | Anesthesia Progress Nt - [facility] ---
Anesthesia Post Op Note Date & Time Jan 26, 2017 at 08:01 Vital Signs Vital Signs Past 12 Hours Date Time Temp Pulse Resp B/P (MAP) Pulse Ox O2 Delivery O2 Flow Rate FiO2 01/26/17 07:55 51 18 162/83 (109) 97 Room Air 01/26/17 07:35 36.8 56 16 168/80 (109) 97 Room Air 01/26/17 06:27 36.7 63 16 170/80 (110) 96 Room Air Notes Mental Status: alert / awake / arousable, participated in evaluation Pt Amnestic to Procedure: No Nausea / Vomiting: adequately controlled Pain: adequately controlled Airway Patency, RR, SpO2: stable & adequate BP & HR: stable & adequate Hydration State: stable & adequate Anesthetic Complications: no major complications apparent non distressing recall as discussed preop
== END | disposition home or self-care (01) ==
LOC: X.SURG 06:13
PROVIDERS: ATTEND Ophthalmology
DX: H25.11 Age-related nuclear cataract, right eye (principal); D22.11 Melanocytic nevi of right eyelid, including canthus; I10 Essential (primary) hypertension; E78.5 Hyperlipidemia, unspecified; E11.9 Type 2 diabetes mellitus without complications; E03.9 Hypothyroidism, unspecified; F32.9 Major depressive disorder, single episode, unspecified; Z79.84 Long term (current) use of oral hypoglycemic drugs; Z79.899 Other long term (current) drug therapy

== ENCOUNTER → 2017-03-25 | Outpatient (CLI) | payer OTHER ==
[~2017-03-25] MED LIST changes: -500ML BSS 0.3ML EPI 1:1000PF IRRIG ONE; -ACETAMINOPHEN 325 MG TAB PO PRN; -AMVISC PLUS 0.8ML SYRINGE INT OCU ONE; -ATROPINE SULFATE 0.1 MG/ML 5ML SYR IV PRN; -BRIMONIDINE TART 0.2% OP SOLN PER DROP CHARGE ONE; -BSS FLUSH ONE; -BUPIVACAINE HCL 0.75% 10 ML AMP/VIAL ONE; -ENDOCOAT 0.85ML SYRINGE INT OCU ONE; -EpHEDrine SULFATE INJ 50 MG/ML AMP IV PRN; -EpINEphrine INJ 1MG/ML AMP 1 MG/ML AMP ONE; -LACTATED RINGER'S 1000ML 500 ML IV SCH; -LIDO 2%/EPINEPHRINE 1:100000 20 ML VIAL INFIL ONE; -LIDOCAINE 4% OP SOLN DROP CHARGE ONE; -LIDOCAINE 4% OP SOLN DROP CHARGE OPR SCH; -MIDAZOLAM HCL 1 MG/ML 2ML VIAL ONE; -MOXIFLOXACIN OPH SOLN PER DROP CHARGE ONE; -POVIDONE-IODINE OP SOLN 30 ML BTL ONE; -PROPARACAINE 0.5% OP SOLN PER DROP CHARGE OPR SCH; -TOBRAMYCIN/DEXAMETHASONE OPH OINT PER APPLN CHARGE ONE
[2017-03-25 13:16] LABS: ESTIMATED AVERAGE GLUCOSE 171 mg/dl; HA1C FLAG Normal (Normal)
[2017-03-25 13:29] LABS: BLOOD UREA NITROGEN 20 mg/dl (7-18); BUN/CREATININE RATIO 19.9 (10-20); CALCIUM 9.9 mg/dl (8.5-10.1); CARBON DIOXIDE 28 mmol/L (21-32); CHLORIDE 105 mmol/L (98-107); GLUCOSE 203 mg/dl (70-99); POTASSIUM 4.5 mmol/L (3.5-5.1); SODIUM 140 mmol/L (136-145)
== END | disposition home or self-care (01) ==
LOC: C.LABMFLN 07:13
PROVIDERS: ATTEND Family Medicine
DX: E11.9 Type 2 diabetes mellitus without complications (principal)

== ENCOUNTER → 2017-05-04 | Outpatient (CLI) | payer OTHER ==
[2017-05-04 13:26] LABS: CHOLESTEROL/HDL RATIO 3.2; URIC ACID 7.3 mg/dl (2.6-7.2)
== END | disposition home or self-care (01) ==
LOC: C.LABMFLN 07:41
PROVIDERS: ATTEND Family Medicine
DX: E78.5 Hyperlipidemia, unspecified (principal); M10.9 Gout, unspecified

== ENCOUNTER → 2017-07-13 | Outpatient (CLI) | payer OTHER ==
[2017-07-13 12:18] LABS: BASO % 0.4 %; BASO ABS # 0.03 K/uL (0-0.2); EOS % 1.7 %; EOS ABS # 0.12 K/uL (0-0.5); IG# 0.01 K/uL (0.00-0.02); LYMPH % 22.3 %; LYMPH ABS # 1.61 K/uL (1.2-3.4); MEAN CELL VOLUME 92.3 fL (80-100); MEAN CORPUSCULAR HEMOGLOBIN 29.3 pg (25-34); MEAN CORPUSCULAR HGB CONC 31.7 g/dl (32-36); MEAN PLATELET VOLUME 12.4 fL (7.4-10.4); MONO % 6.6 %; MONO ABS # 0.48 K/uL (0.11-0.59); NEUT % 68.9 %; NEUT ABS # 4.98 K/uL (1.4-6.5); PLATELET COUNT 195 K/uL (130-400); RED CELL DISTRIBUTION WIDTH SD 50.8 fL (36.4-46.3); WHITE BLOOD COUNT 7.23 K/uL (4.8-10.8)
[2017-07-13 13:12] LABS: ALBUMIN 3.9 gm/dl (3.4-5.0); ALKALINE PHOSPHATASE 93 U/L (45-117); ALT/SGPT 22 U/L (12-78); AST/SGOT 13 U/L (15-37); BLOOD UREA NITROGEN 16 mg/dl (7-18); CALCIUM 10.1 mg/dl (8.5-10.1); CARBON DIOXIDE 27 mmol/L (21-32); CREATININE 1.07 mg/dl (0.60-1.20); GLUCOSE 198 mg/dl (70-99); POTASSIUM 4.3 mmol/L (3.5-5.1); SODIUM 138 mmol/L (136-145); TOTAL PROTEIN 7.6 gm/dl (6.4-8.2)
[2017-07-13 13:21] LABS: HEMOGLOBIN A1C 7.8 % (4.5-5.6)
[2017-07-13 13:24] LABS: URIC ACID 4.7 mg/dl (2.6-7.2)
== END | disposition home or self-care (01) ==
LOC: C.LABMFLN 09:28
PROVIDERS: ATTEND Family Medicine
DX: E03.9 Hypothyroidism, unspecified (principal); E11.9 Type 2 diabetes mellitus without complications; M10.9 Gout, unspecified

== ENCOUNTER → 2017-08-10 | Outpatient (CLI) | payer OTHER ==
[2017-08-10 12:17] LABS: BASO % 0.3 %; BASO ABS # 0.03 K/uL (0-0.2); EOS % 1.1 %; HEMATOCRIT 42.7 % (37-47); HEMOGLOBIN 13.4 g/dL (12.0-16.0); IG# 0.02 K/uL (0.00-0.02); LYMPH % 19.6 %; LYMPH ABS # 1.71 K/uL (1.2-3.4); MEAN CELL VOLUME 91.4 fL (80-100); MEAN CORPUSCULAR HEMOGLOBIN 28.7 pg (25-34); MEAN CORPUSCULAR HGB CONC 31.4 g/dl (32-36); MEAN PLATELET VOLUME 12.4 fL (7.4-10.4); MONO % 5.3 %; MONO ABS # 0.46 K/uL (0.11-0.59); NEUT % 73.5 %; NEUT ABS # 6.41 K/uL (1.4-6.5); PLATELET COUNT 180 K/uL (130-400); RED CELL DISTRIBUTION WIDTH CV 14.5 % (11.5-14.5); RED CELL DISTRIBUTION WIDTH SD 48.5 fL (36.4-46.3); WHITE BLOOD COUNT 8.73 K/uL (4.8-10.8)
[2017-08-10 13:13] LABS: BLOOD UREA NITROGEN 21 mg/dl (7-18); CALCIUM 10.3 mg/dl (8.5-10.1); CARBON DIOXIDE 29 mmol/L (21-32); CREATININE 1.16 mg/dl (0.60-1.20); GLUCOSE 205 mg/dl (70-99); PHOSPHORUS 3.1 mg/dl (2.5-4.9); POTASSIUM 4.1 mmol/L (3.5-5.1); SODIUM 137 mmol/L (136-145)
== END | disposition home or self-care (01) ==
LOC: C.LABMFLN 10:31
PROVIDERS: ATTEND Family Medicine
DX: R10.31 Right lower quadrant pain (principal)

== ENCOUNTER → 2017-08-10 | Outpatient (CLI) | payer OTHER ==
[~2017-08-10] MED LIST changes: +OPTIRAY 320 IV PRN
--- NOTE | 2017-08-10 16:52 | DIAGNOSTIC IMAGING REPORT ---
ABDOMEN AND PELVIS CT WITH IV AND ORAL CONTRAST CT DOSE: 808.21 mGy.cm HISTORY: R10.31 Abdominal pain, RLQ (right lower quadrant)STAT TECHNIQUE: Multiaxial CT images of the abdomen and pelvis were performed following the use of intravenous and oral contrast. A dose lowering technique was utilized adhering to the principles of ALARA. COMPARISON STUDY: Abdomen and pelvis CT 09/08/2016. FINDINGS: A few bibasilar linear densities suggesting scarring or atelectasis. No pneumoperitoneum. No pneumatosis. No suspicious lytic or blastic osseous lesions. Hepatic steatosis. Cholecystectomy. Fatty atrophy of the pancreas. The spleen, adrenal glands are unremarkable. Punctate stone within the left kidney. No hydronephrosis. Possible 2 mm soft tissue nodule within the posterior wall the right renal pelvis best seen on image 188. No ureteral stones. No hydronephrosis. The bladder is unremarkable. A 5 mm omental nodule within the right mid abdomen on image 224. This is stable and therefore likely benign. Hysterectomy. The visualized appendix is unremarkable. No pelvic free fluid. No retroperitoneal lymphadenopathy. Prior sigmoid anastomosis. No evidence for bowel obstruction. Colonic diverticulosis. Questionable minimal inflammatory change surrounding a diverticulum within the proximal transverse colon. This is best seen on image 203. This may represent a developing acute diverticulitis. IMPRESSION: 1. Suggestion of minimal inflammatory change involving a diverticulum within the proximal transverse colon. This is concerning for developing acute diverticulitis. No perforation or abscess at this time. 2. No evidence for bowel obstruction. 3. Possible 2 mm soft tissue nodule within the posterior wall of the right renal pelvis. This could be artifact or represent a small urothelial lesion. Correlation with urine cytology and follow-up nonemergent urologic consultation is recommended. 4. Left-sided nephrolithiasis. No hydronephrosis. 5. Postoperative changes as described above. Electronically signed by: Willie White M.D. 08/10/2017 4:51 PM Dictated Date/Time: 08/10/2017 4:34 PM
== END | disposition home or self-care (01) ==
LOC: C.CTS 13:52
PROVIDERS: ATTEND Family Medicine
DX: R10.31 Right lower quadrant pain (principal); N20.0 Calculus of kidney; R93.3 Abnormal findings on diagnostic imaging of other parts of digestive tract; R93.421 Abnormal radiologic findings on diagnostic imaging of right kidney

== ENCOUNTER → 2017-08-12 | Outpatient (CLI) | payer OTHER ==
[~2017-08-12] MED LIST changes: -OPTIRAY 320 IV PRN
[2017-08-12 13:16] LABS: ALBUMIN 3.7 gm/dl (3.4-5.0); BLOOD UREA NITROGEN 20 mg/dl (7-18); CALCIUM 9.6 mg/dl (8.5-10.1); CARBON DIOXIDE 26 mmol/L (21-32); GLUCOSE 304 mg/dl (70-99); POTASSIUM 3.7 mmol/L (3.5-5.1); SODIUM 137 mmol/L (136-145)
[2017-08-12 13:22] LABS: PHOSPHORUS 3.1 mg/dl (2.5-4.9)
== END | disposition home or self-care (01) ==
LOC: C.LABMFLN 07:08
PROVIDERS: ATTEND Family Medicine
DX: E11.9 Type 2 diabetes mellitus without complications (principal)

== ENCOUNTER → 2017-09-03 | Outpatient (CLI) | payer OTHER | END | disposition home or self-care (01) | LOC: C.LABMFLN 10:10 | PROVIDERS: ATTEND Urology | DX: N28.9 Disorder of kidney and ureter, unspecified (principal); R82.8 Abnormal findings on cytological and histological examination of urine ==

== ENCOUNTER → 2017-10-21 | Outpatient (CLI) | payer OTHER ==
[2017-10-21 13:31] LABS: HEMOGLOBIN A1C 8.8 % (4.5-5.6)
[2017-10-21 13:48] LABS: ALBUMIN 3.7 gm/dl (3.4-5.0); BLOOD UREA NITROGEN 21 mg/dl (7-18); CALCIUM 9.7 mg/dl (8.5-10.1); CARBON DIOXIDE 25 mmol/L (21-32); CREATININE 1.35 mg/dl (0.60-1.20); GLUCOSE 244 mg/dl (70-99); PHOSPHORUS 2.2 mg/dl (2.5-4.9); SODIUM 138 mmol/L (136-145)
== END | disposition home or self-care (01) ==
LOC: C.LABMFLN 09:50
PROVIDERS: ATTEND Family Medicine
DX: E11.9 Type 2 diabetes mellitus without complications (principal)

== ENCOUNTER → 2017-12-28 | Outpatient (CLI) | payer OTHER ==
[~2017-12-28] MED LIST changes: +OPTIRAY 320 IV PRN
--- NOTE | 2017-12-28 10:27 | DIAGNOSTIC IMAGING REPORT ---
CT KIDNEY (ABDOMEN) COMBO CT DOSE: 1801.32 mGycm CLINICAL HISTORY: N28.9 Renal lesion TECHNIQUE: Unenhanced images were obtained through the upper abdomen. The patient was then scanned in a dynamic helical fashion during intravenous administration of 94 cc Optiray 320. 5 minute delayed images were then acquired. A dose lowering technique was utilized adhering to the principles of ALARA. COMPARISON STUDY: August 10, 2017 FINDINGS: There are mild dependent atelectatic changes. There is a punctate nonobstructing left renal calculus. No hepatic masses are visualized. The portal vein appears patent. The gallbladder is surgically absent. No splenic masses are visualized. There is fatty atrophy the pancreas. No pancreatic masses are visualized. No adrenal masses are visualized. No renal masses are visualized. This repeat study fails to confirm the presence of a filling defect within the right renal pelvis. There is no hydronephrosis. There is colonic diverticulosis. IMPRESSION: 1. Repeat CT scanning fails to confirm the presence of a 2 mm soft tissue nodule within the right renal pelvis. 2. No renal masses identified. 3. Punctate left renal calculus 4. No acute findings. Electronically signed by: Deric Murguia M.D. 12/28/2017 10:25 AM Dictated Date/Time: 12/28/2017 10:18 AM
== END | disposition home or self-care (01) ==
LOC: C.CTS 09:42
PROVIDERS: ATTEND Urology
DX: N28.9 Disorder of kidney and ureter, unspecified (principal)

== ENCOUNTER → 2017-12-30 | Outpatient (CLI) | payer OTHER ==
[~2017-12-30] MED LIST changes: -OPTIRAY 320 IV PRN
[2017-12-30 13:38] LABS: BLOOD UREA NITROGEN 18 mg/dl (7-18); CREATININE 1.04 mg/dl (0.60-1.20)
== END | disposition home or self-care (01) ==
LOC: C.LABMFLN 08:52
PROVIDERS: ATTEND Urology
DX: N28.9 Disorder of kidney and ureter, unspecified (principal)

== ENCOUNTER 2019-05-19 10:07 | Inpatient (IN) ==
[2019-05-19] MEDS ORDERED: ONDANSETRON INJ 2 MG/ML 2 ML VIAL IV STA ×2 (10:58→11:06)
[2019-05-19] MEDS ORDERED: ACETAMINOPHEN 1,000 MG/100 ML VIAL IV STA (11:06)
[2019-05-19] MEDS ORDERED: SODIUM CHLORIDE 0.9% 1000ML 500 ML IV ONE ×2 (11:06→12:13)
[2019-05-19] MEDS ORDERED: MoRPHine SULFATE 2 MG/ML CARP IV STA (11:06)
[2019-05-19] MEDS ORDERED: KETOROLAC TROMETHAMINE 15 MG/ML VIAL IV STA (11:06)
[2019-05-19 11:12] LABS: Basophils # (auto) 0.02 K/uL (0-0.2); Basophils % (auto) 0.2 %; Eosinophils # (auto) 0.05 K/uL (0-0.5); Eosinophils % (auto) 0.5 %; Hematocrit (blood only) 42.1 % (37-47); Hemoglobin 13.4 g/dL (12.0-16.0); Immature Granulocytes # (auto) 0.03 K/uL (0.00-0.02); Immature Granulocytes % (auto) 0.3 %; Lymphocytes % (auto) 8.6 %; Mean Corpuscular Hemoglobin 29.5 pg (25-34); Mean Corpuscular Hgb Conc 31.8 g/dL (32-36); Mean Corpuscular Volume 92.7 fL (80-100); Mean Platelet Volume 12.1 fL (7.4-10.4); Monocytes # (auto) 0.41 K/uL (0.11-0.59); Monocytes % (auto) 4.4 %; Neutrophils # (auto) 7.99 K/uL (1.4-6.5); Platelet Count 160 K/uL (130-400); RDW Coefficient of Variation 14.6 % (11.5-14.5); RDW Standard Deviation 49.6 fL (36.4-46.3); Red Blood Count 4.54 M/uL (4.2-5.4)
[2019-05-19 11:19] LABS: Albumin Level 3.6 gm/dl (3.4-5.0); Calcium 9.9 mg/dl (8.5-10.1); Creatinine Clr Calc Pharmacy 49.4 ml/min; Est GFR (African American) 59.7; Est GFR (Non-African American) 51.5; Potassium 4.4 mmol/L (3.5-5.1)
[2019-05-19 11:22] LABS: Albumin Globulin Ratio 0.9 (0.9-2); Bilirubin,Total 0.3 mg/dl (0.2-1); Globulin 4.2 gm/dl (2.5-4.0); Total Protein 7.8 gm/dl (6.4-8.2)
[2019-05-19] MEDS ORDERED: IOVERSOL 100ml IV PRN (11:39)
[2019-05-19] MEDS ORDERED: HydrALAZINE HCL 20 MG/ML VIAL IV STA (12:07)
--- NOTE | 2019-05-19 12:09 | CT Scan Report ---
CT OF THE ABDOMEN AND PELVIS WITH CONTRAST CLINICAL HISTORY: Lower abdominal pain. History of sigmoid resection. COMPARISON STUDY: CT of the abdomen and pelvis August 10, 2017. CT of the abdomen December 28, 2017. TECHNIQUE: Following IV administration of 94 mL of Optiray-320, axial images of the abdomen and pelvi s were obtained from the lung bases to the proximal femurs. Images were reviewed in the axial, sagitt al, and coronal planes. IV contrast was administered without complication. Automated exposure contro l was utilized for the study. A dose lowering technique was utilized adhering to the principles of A LAUREANO. CT DOSE: 1099.95 mGy.cm FINDINGS: Lung bases are unremarkable. No pneumatosis, free air or portal venous gas is present. Mild cardiomegaly is noted. The liver, spleen, adrenal glands, right kidney and pancreas are unremarkable with the exception of pancreatic glandular atrophy. There is no biliary ductal dilatation status pos t cholecystectomy. There is long segment wall thickening and enhancement of the left ureter with sara cent infiltration. This extends into the left collecting system and renal pelvis. No renal abscess is present. There is no CT evidence for pyelonephritis. There is no gas within the collecting system. B ladder wall thickening is noted. There is no evidence for a bowel obstruction. Colonic diverticulosis is noted without evidence for acute diverticulitis. Previous sigmoid resection is present. IMPRESSION: Long segment wall thickening and enhancement of the left ureter with adjacent infiltration which exte nds into the left collecting system. This favors an infectious process such as pyelitis. No hydroneph rosis. No ureteral calculi. Mild bladder wall thickening which may reflect cystitis. Although within the differential, a neoplastic etiology is considered much less likely. The findings could be correla karyn with urinalysis and urine cytology. ACT 112: Negative or not required by law. Electronically signed by: Kieran Choi M.D. 05/19/2019 12:07 PM
[2019-05-19 12:37] LABS: Appearance Urine Cloudy (Clear); Bacteria Urine Automated 4+ (Negative); Bilirubin Urine Negative (Negative); Blood Urine 1+ (Negative); Color Urine Yellow; Epithelial Cell Urine Auto 0-5 /lpf (0-5); Glucose Urine UA 1+ (Negative); Ketones Urine Negative (Negative); Leukocyte Esterase Urine Negative (Negative); Nitrite Urine Negative (Negative); Protein Urine 3+ (Negative); RBC Urine Automated 0-4 /hpf (0-4); Specific Gravity Urine 1.043 (1.000-1.030); Urobilinogen Urine Negative (Negative); WBC Urine Automated >30 /hpf (0-5); pH Urine 5.5 (4.5-7.5)
[2019-05-19] MEDS ORDERED: cefTRIAXone SODIUM 2,000 MG/70 ML BAG IV STA (12:47)
--- NOTE | 2019-05-19 14:39 | Emergency Department Note ---
Entered by Mac Howard acting as a scribe for History of Present Illness General Chief complaint: Abdominal Pain Stated complaint: PAIN IN LOWER STOMACH Time Seen by Provider: 05/19/19 11:00 Source: patient History of Present Illness Provider complaint: Abdominal pain Onset (ago): day(s) 2 Location: abdomen Severity: similar to prior episodes Pain Consistency: + intermittent and + other (Worse) Maximum Pain Intensity: 10 Current Pain Intensity: 9 Relieved By: + none Associated symptoms: + denies other symptoms (Urinary symptoms, Diarrhea), + fever/chills (No fevers) and + nausea/vomiting (No vomiting. ) The patient is an 83 year old female who presents to the Emergency Room with complaints of bilateral lower quadrant abdominal pain that started intermittently 2 days ago but became acutely constant and worse this morning. The patient rates the pain as a 9/10 and notes nothing has helped relieve it. The patient endorses associated nausea and chills but denies any vomiting, diarrhea, urinary symptoms or fevers. The patient has a history of diverticulitis and needed to have a partial colon resection 9 years ago. The patient reports she has not had any medication for pain today. The patient den ies noticing any hernias and she still has her appendix however she no longer has her gallbladder. Home Medications Home Medications Medication Instructions Recorded Confirmed Type aspirin 81 mg tablet,delayed 81 mg PO DAILY tab 11/19/18 05/19/19 History release acetaminophen 325 mg tablet 650 mg PO Q4H PRN #90 tab 11/28/18 05/19/19 Rx allopurinol 100 mg tablet 200 mg PO DAILY #180 tab 11/28/18 05/19/19 Rx atorvastatin 20 mg tablet 20 mg PO QPM #90 tab 11/28/18 05/19/19 Rx blood sugar diagnostic #10 ea 11/28/18 05/19/19 Rx cholecalciferol (vitamin D3) 125 5,000 units PO DAILY #90 tab 11/28/18 05/19/19 Rx mcg (5,000 unit) tablet cyanocobalamin (vitamin B-12) 1,000 mcg IM MONTHLY #1 ml 11/28/18 05/19/19 Rx 1,000 mcg/mL injection solution lancets #50 ea 11/28/18 05/19/19 Rx levothyroxine 100 mcg tablet 100 mcg PO DAILY #90 tab 11/28/18 05/19/19 Rx metformin 1,000 mg tablet 500 mg PO BID #90 tab 11/28/18 05/19/19 Rx multivitamin 1 tab PO QAM #30 tab 11/28/18 05/19/19 Rx omeprazole 40 mg capsule,delayed 40 mg PO ONCE #90 cap 11/28/18 05/19/19 Rx release glimepiride 1 mg tablet See Rx Instructions PO .COMPLEX 11/30/18 05/19/19 Rx #270 tab amlodipine 10 mg tablet 10 mg PO DAILY #90 tab 01/24/19 05/19/19 Rx lisinopril 5 mg tablet 5 mg PO DAILY #30 tab 02/23/19 05/19/19 Rx syringe with needle, safety 3 mL #12 ea 02/24/19 05/19/19 Rx 25 gauge x 5/8" sertraline 100 mg tablet 200 mg PO DAILY #180 tab 05/06/19 05/19/19 Rx docusate sodium 100 mg capsule 100 mg PO BID cap 05/19/19 05/19/19 History linagliptin [Tradjenta] 0 mg PO DAILY 05/19/19 05/19/19 History Allergies Allergy/AdvReac Type Severity Reaction Status Date / Time hydromorphone AdvReac Severe hallucinati Verified 05/19/19 09:12 ons,confusi on Past Med/Surg History Medical History Acid reflux disease (Chronic) Anxiety associated with depression (Chronic) Breast cancer (Chronic) CKD (chronic kidney disease), stage III (Chronic) Diabetes mellitus with renal complications (Chronic) Diverticulosis (Chronic) Gout (Chronic) Hyperlipidemia (Chronic) Hypertension (Chronic) Hypothyroidism (Chronic) Obesity (Chronic) Obstructive sleep apnea of adult (Chronic) Osteoarthritis (Chronic) Vitamin B12 deficiency (Chronic) Vitamin D deficiency (Chronic) Surgical History H/O knee surgery History of bladder surgery History of ear, nose, and throat (ENT) surgery throat surgery History of lumpectomy S/P breast biopsy S/P cholecystectomy S/P colon resection S/P colonoscopy S/P hernia repair S/P hysterectomy S/P tonsillectomy Family History Father Diabetes Lymphoma Mother Depression Cardiac disorder Congestive heart failure Daughter Breast cancer Brother Gout Prostate cancer Sister Gout Hypertension Arthritis Social History Preferred Language: Bahamian Communication Ability: Effective Dental Technician Instructor Required: No Beliefs That Will Affect Care: None marital status: Current Living Situation: Spouse Other Information That Helps Us Care for You: No Feels Safe at Home: Yes Safety Concerns: Feels Safe At This Time Smoking Status: Never smoker Do You Dip or Chew Tobacco: No ; Second Hand Exposure: No ; Tobacco Cessation Education Requested by Patient: No Hx Alcohol Use: No Hx Substance Use: No Physical Activity Frequency: Does not Exercise Review of Systems See HPI for pertinent positives & negatives. and A total of 10 systems reviewed and were otherwise negative Physical Exam Vital Signs Vital Signs - 24 hr 05/19/19 10:22 05/19/19 11:30 05/19/19 12:00 Temperature 36.3 C L Temperature Source Oral Pulse Rate 76 63 85 Pulse Rate [Apical] Pulse Rate from SpO2 Sensor 63 81 Respiratory Rate 16 19 17 Blood Pressure 190/102 H 204/80 H 202/86 H Blood Pressure [Left Arm] Blood Pressure Mean 131 131 100 Blood Pressure Mean [Left Arm] Pulse Oximetry 99 97 97 Oxygen Delivery Method Room Air Sepsis Recent Fever Within 48 Hours No Sepsis Action Taken by Nursing No Action Required 05/19/19 12:30 05/19/19 13:00 05/19/19 15:29 Temperature Temperature Source Pulse Rate 82 87 Pulse Rate [Apical] 67 Pulse Rate from SpO2 Sensor 81 85 Respiratory Rate 21 15 16 Blood Pressure 160/78 H 154/80 H Blood Pressure [Left Arm] 124/68 Blood Pressure Mean 105 117 Blood Pressure Mean [Left Arm] 86 Pulse Oximetry 96 93 94 Oxygen Delivery Method Sepsis Recent Fever Within 48 Hours Sepsis Action Taken by Nursing GENERAL: Patient is in mild distress from pain. HEENT: No acute trauma, normocephalic atraumatic, mucous membranes moist, no nasal congestion, no scleral icterus. NECK: No stridor, no adenopathy, no meningismus, trachea is midline. LUNGS: Clear to auscultation bilaterally, no wheeze, no rhonchi, breath sounds equal. HEART: Without murmurs gallops or rubs, regular rate and rhythm. ABDOMEN: Soft, tender to the lower quadrants but mostly in the LLQ, bowel sounds positive, no hernias, no peritonitis. EXTREMITIES: No cyanosis or edema, full range of motion of all the joints with out pain or difficulty, no signs for acute trauma. NEUROLOGIC: Oriented x 3, no acute motor or sensory deficits, no focal weakness. SKIN: No rash, no jaundice, no diaphoresis. Course Course 1102: Past medical records reviewed. The patient was evaluated in room C09, and a complete history and physical examination were performed. 1256: I reevaluated the patient and discussed the test results. We also discussed the treatment plan and she is agreeable. 1310: I spoke to Dr. Charles Matthews [facility] Hospitalist about the patient's case. She agreed to accept the patient for further evaluation. Consultations Consultation #1: I spoke to Dr. Charles Matthews [facility] Hospitalist about the patient's case. She agreed to accept the patient for further evaluation. Time: 13:10 Administered Medications Ioversol (Optiray 320 100ml) 94 ml IV ONCE PRN PRN Reason: Interaction Checking Stop: 05/23/19 11:38 Last Admin: 05/19/19 11:39 Dose: 94 ml Documented by: [id number] Discontinued Medications Hydralazine HCl (Hydralazine Hcl) 10 mg IV NOW STA Stop: 05/19/19 12:08 Last Admin: 05/19/19 12:40 Dose: 10 mg Documented by: [id number] Acetaminophen (Ofirmev) 1,000 mg in 100 mls @ 400 mls/hr IV NOW STA Stop: 05/19/19 11:20 Last Infusion: 05/19/19 11:40 Dose: 0 mls/hr Documented by: [id number] Admin: 05/19/19 11:20 Dose: 400 mls/hr Documented by: [id number] Sodium Chloride (Nss 1000ml) 500 mls @ 999 mls/hr IV .Q31M ONE Stop: 05/19/19 11:36 Last Infusion: 05/19/19 12:27 Dose: 0 mls/hr Documented by: [id number] Admin: 05/19/19 11:10 Dose: 999 mls/hr Documented by: [id number] Sodium Chloride (Nss 1000ml) 500 mls @ 999 mls/hr IV .Q31M ONE Stop: 05/19/19 12:43 Last Infusion: 05/19/19 13:30 Dose: 0 mls/hr Documented by: [id number] Admin: 05/19/19 12:40 Dose: 999 mls/hr Documented by: [id number] Ceftriaxone Sodium (Rocephin) 2,000 mg in 70 mls @ 140 mls/hr IV NOW STA Stop: 05/19/19 13:16 Last Infusion: 05/19/19 13:40 Dose: 0 mls/hr Documented by: [id number] Admin: 05/19/19 13:04 Dose: 140 mls/hr Documented by: [id number] Ketorolac Tromethamine (Toradol) 15 mg IV NOW STA Stop: 05/19/19 11:07 Last Admin: 05/19/19 11:20 Dose: 15 mg Documented by: [id number] Morphine Sulfate (Morphine Sulfate) 2 mg IV NOW STA Stop: 05/19/19 11:07 Last Admin: 05/19/19 11:21 Dose: 2 mg Documented by: [id number] Ondansetron HCl (Zofran) 4 mg IV NOW STA Stop: 05/19/19 10:59 Last Admin: 05/19/19 11:05 Dose: 4 mg Documented by: [id number] Ondansetron HCl (Zofran) 4 mg IV NOW STA Stop: 05/19/19 11:07 Last Admin: 05/19/19 12:26 Dose: Not Given Documented by: [id number] Medical Decision Making Differential Diagnosis Differential Diagnosis includes: Appendicitis, pancreatitis, hernia, bowel obstruction, diverticulitis, UTI, renal colic, electrolyte imbalance, bowel rupture, abscess, and viral illness, amongst others. Medical Records Attestation: I reviewed the patient's medical records. Home Medications Current Medication List: was personally reviewed by me Laboratory Data Attestation: I reviewed the patient's lab results. Result diagrams: 05/19/19 10:36 05/19/19 10:36 Lab Results 05/19/19 05/19/19 05/19/19 Range/Units 10:36 10:36 12:22 WBC 9.30 (4.8-10.8) K/uL RBC 4.54 (4.2-5.4) M/uL Hgb 13.4 (12.0-16.0) g/dL Hct 42.1 (37-47) % MCV 92.7 (80-100) fL MCH 29.5 (25-34) pg MCHC 31.8 L (32-36) g/dL RDW Std Deviation 49.6 H (36.4-46.3) fL RDW Coeff of Cory 14.6 H (11.5-14.5) % Plt Count 160 (130-400) K/uL MPV 12.1 H (7.4-10.4) fL Immature Gran % (Auto) 0.3 % Neut % (Auto) 86.0 % Lymph % (Auto) 8.6 % [place] % (Auto) 4.4 % Eos % (Auto) 0.5 % Baso % (Auto) 0.2 % Immature Gran # (Auto) 0.03 H (0.00-0.02) K/uL Neut # (Auto) 7.99 H (1.4-6.5) K/uL Lymph # (Auto) 0.80 L (1.2-3.4) K/uL [place] # (Auto) 0.41 (0.11-0.59) K/uL Eos # (Auto) 0.05 (0-0.5) K/uL Baso # (Auto) 0.02 (0-0.2) K/uL Sodium 138 (136-145) mmol/L Potassium 4.4 (3.5-5.1) mmol/L Chloride 107 (98-107) mmol/L Carbon Dioxide 28 (21-32) mmol/L Anion Gap 3.0 (3-11) BUN 19 H (7-18) mg/dl Creatinine 1.02 (0.6-1.2) mg/dl Est Cr Clr Drug Dosing 49.4 ml/min Est GFR ( Amer) 59.7 Est GFR (Non-Af Amer) 51.5 BUN/Creatinine Ratio 19.0 (10-20) Glucose 237 H (70-99) mg/dl Calcium 9.9 (8.5-10.1) mg/dl Total Bilirubin 0.3 (0.2-1) mg/dl AST 21 (15-37) U/L ALT 23 (12-78) U/L Alkaline Phosphatase 106 (45-117) U/L Total Protein 7.8 (6.4-8.2) gm/dl Albumin 3.6 (3.4-5.0) gm/dl Globulin 4.2 H (2.5-4.0) gm/dl Albumin/Globulin Ratio 0.9 (0.9-2) Lipase 91 (73-393) U/L Urine Color Yellow Urine Appearance Cloudy A (Clear) Urine pH 5.5 (4.5-7.5) Ur Specific [place] 1.043 H (1.000-1.030) Urine Protein 3+ H (Negative) Urine Glucose (UA) 1+ H (Negative) Urine Ketones Negative (Negative) Urine Blood 1+ H (Negative) Urine Nitrite Negative (Negative) Urine Bilirubin Negative (Negative) Urine Urobilinogen Negative (Negative) Ur Leukocyte Esterase Negative (Negative) Urine WBC (Auto) >30 H (0-5) /hpf Urine RBC (Auto) 0-4 (0-4) /hpf U Hyaline Cast (Auto) 1-5 (0-5) /lpf U Epithel Cells (Auto) 0-5 (0-5) /lpf Urine Bacteria (Auto) 4+ H (Negative) Imaging Data Radiologist's Impression: Radiology results as stated below per my review and the radiologist's interpretation: CT OF THE ABDOMEN AND PELVIS WITH CONTRAST CLINICAL HISTORY: Lower abdominal pain. History of sigmoid resection. COMPARISON STUDY: CT of the abdomen and pelvis August 10, 2017. CT of the abdomen December 28, 2017. TECHNIQUE: Following IV administration of 94 mL of Optiray-320, axial images of the abdomen and pelvis were obtained from the lung bases to the proximal femurs. Images were reviewed in the axial, sagittal, and coronal planes. IV contrast was administered without complication. Automated exposure control was utilized for the study. A dose lowering technique was utilized adhering to the principles of ALARA. CT DOSE: 1099.95 mGy.cm FINDINGS: Lung bases are unremarkable. No pneumatosis, free air or portal venous gas is present. Mild cardiomegaly is noted. The liver, spleen, adrenal glands, right kidney and pancreas are unremarkable with the exception of pancreatic glandular atrophy. There is no biliary ductal dilatation status post cholecystectomy. There is long segment wall thickening and enhancement of the left ureter with adjacent infiltration. This extends into the left collecting system and renal pelvis. No renal abscess is present. There is no CT evidence for pyelonephritis. There is no gas within the collecting system. Bladder wall thickening is noted. There is no evidence for a bowel obstruction. Colonic diverticulosis is noted without evidence for acute diverticulitis. Previous sigmoid resection is present. IMPRESSION: Long segment wall thickening and enhancement of the left ureter with adjacent infiltration which extends into the left collecting system. This favors an infectious process such as pyelitis. No hydronephrosis. No ureteral calculi. Mild bladder wall thickening which may reflect cystitis. Although within the differential, a neoplastic etiology is considered much less likely. The findings could be correlated with urinalysis and urine cytology. ACT 112: Negative or not required by law. Electronically signed by: Kieran Choi M.D. 05/19/2019 12:07 PM Blood Pressure Blood Pressure Findings: Elevated blood pressure Blood Pressure Disposition: further management by hospitalist ZACH Narrative There is no leukocytosis or concerning anemia. No significant electrolyte abnormality or kidney failure. No worrisome liver enzyme elevation. No evidence for pancreatitis. Urinalysis does show evidence for infection, urine culture is pending. Abdominal and pelvis CT shows evidence for a pyelonephritis. No urinary obstruction, no diverticulitis or bowel obstruction. The patient received IV saline, she was given IV Zofran for nausea. She received IV morphine for pain, IV Toradol for pain. She was given IV ceftriaxone and IV Tylenol. She received a dose of IV hydralazine because of the persistently high blood pressure. Patient is nauseated, she is not able to take her regular medications. She is in significant pain. Her issue appears to be a left-sided pyelonephritis. I do think hospitalization would be warranted to control symptoms and to treat this infection. I did speak to the patient and case management. The on-call hospitalist was consulted. Impression & Plan Pyelonephritis, Hypertension, Left sided abdominal pain, Nausea Discharge Plan Visit Data Chief Complaint: Abdominal Pain Stated Complaint: PAIN IN LOWER STOMACH ED Provider: Ian Ross Discharge Problem: Pyelonephritis, Hypertension, Left sided abdominal pain, Nausea Patient Disposition: Being Evaluated by Hospitalist Forms Stand Alone Forms: My [facility] DLS Prescriptions Prescriptions: No Action amlodipine 10 mg tablet 10 mg PO DAILY Qty: 90 RF: 3 lisinopril 5 mg tablet 5 mg PO DAILY Qty: 30 RF: 3 (DME) BD Integra Syringe 3 mL 25 gauge x 5/8" syringe See Dose Instructions .ROUTE .MEDSUPPLY Qty: 12 RF: 0 sertraline 100 mg tablet 200 mg PO DAILY Qty: 180 RF: 3 aspirin 81 mg tablet,delayed release (DR/EC) 81 mg PO DAILY RF: 0 cholecalciferol (vitamin D3) 5,000 unit tablet 5,000 units PO DAILY Qty: 90 RF: 3 cyanocobalamin (vitamin B-12) 1,000 mcg/mL solution 1,000 mcg IM MONTHLY Qty: 1 RF: 3 multivitamin [Daily Multi-Vitamin] tablet 1 tab PO QAM Qty: 30 RF: 0 acetaminophen [Tylenol] 325 mg tablet 650 mg PO Q4H PRN (Reason: pain) Qty: 90 RF: 0 (DME) OneTouch Ultra Blue Test Strip strip See Dose Instructions .ROUTE .MEDSUPPLY Qty: 10 RF: 0 (DME) lancets misc See Dose Instructions .ROUTE .MEDSUPPLY Qty: 50 RF: 0 allopurinol 100 mg tablet 200 mg PO DAILY Qty: 180 RF: 3 atorvastatin 20 mg tablet 20 mg PO QPM Qty: 90 RF: 3 levothyroxine 100 mcg tablet 100 mcg PO DAILY Qty: 90 RF: 3 metformin 1,000 mg tablet 500 mg PO BID Qty: 90 RF: 3 omeprazole 40 mg capsule,delayed release(DR/EC) 40 mg PO ONCE Qty: 90 RF: 3 glimepiride 1 mg tablet See Patient Comments PO .COMPLEX Qty: 270 RF: 3 docusate sodium 100 mg capsule 100 mg PO BID RF: 0 Tradjenta 5 mg tablet 0 mg PO DAILY RF: 0 Referrals Referrals: Latanya Renteria MD [Primary Care Provider] - Discharge Problem: Hypertension Qualifiers: Hypertension type: unspecified Qualified Code(s): I10 - Essential (primary) hypertension The scribe's documentation has been prepared under my direction and personally reviewed by me in its entirety. I confirm that the note above accurately reflects all work, treatment, procedures, and medical decision making performed by me.
[2019-05-19] MEDS ORDERED: MAGNESIUM HYDROXIDE SUSP 30 ML UDC PO PRN (16:01)
[2019-05-19] MEDS ORDERED: KETOROLAC TROMETHAMINE 15 MG/ML VIAL IV PRN (16:01)
[2019-05-19] MEDS ORDERED: CYANOCOBALAMIN 1000 MCG/ML VIAL IM SCH (16:01)
[2019-05-19] MEDS ORDERED: ACETAMINOPHEN 325 MG TAB PO PRN (16:01)
[2019-05-19] MEDS ORDERED: ALUMINUM/MAGNESIUM SUSP 30 ML UDC PO PRN (16:01)
[2019-05-19] MEDS ORDERED: ONDANSETRON INJ 2 MG/ML 2 ML VIAL IV PRN (16:01)
[2019-05-19] MEDS ORDERED: POLYETHYLENE (MIRALAX) 17 GM PACK PO PRN (16:01)
[2019-05-19] MEDS ORDERED: OXYCODONE/ACETAMINOPHEN 5mg/325mg TAB PO PRN (16:01)
[2019-05-19] MEDS: SODIUM CHLORIDE 0.9% 1000ML 1,000 ML IV SCH (16:06)
[2019-05-19 16:50] LABS: Thyroid Stimulating Hormone 0.833 uIu/ml (0.300-4.500)
[2019-05-19] MEDS: ATORVASTATIN 20 MG TAB PO SCH (21:31)
[2019-05-19] MEDS: DOCUSATE SODIUM 100 MG CAP PO SCH (21:31)
[2019-05-19] MEDS: ENOXAPARIN INJ 40 MG/0.4 ML SYR SQ SCH (21:32)
--- NOTE | 2019-05-19 21:35 | History & Physical Report ---
Date of Service May 19, 2019 Assessment & Plan (1) Pyelonephritis: Admit to [facility] Vital signs every 4 hours Gentle IV fluid hydration with normal saline at 80 cc/h Follow-up urine cultures Started ceftriaxone 2 g IV daily Follow-up urine culture DVT prophylaxis Lovenox 40 mg subcu every 24 hours Pain management with Toradol 15 mg IV every 6 hours as needed for pain and Percocet 5 mg p.o. every 4 hours as needed. Full code Present on Admission?: Yes (2) Hypertension: Stable, continue home medicine amlodipine 10 mg p.o. daily, aspirin 81 mg p.o. daily, Present on Admission?: Yes (3) CKD (chronic kidney disease), stage III: Creatinine back to normal 1.02 and GFR of 51.5. Avoid nephrotoxic agents. Present on Admission?: Yes (4) Diabetes mellitus with renal complications: Glycemic control per pharmacy. Hold hypoglycemic agents such as metformin 500 mg p.o. twice daily linagliptin and glimepiride 1 mg p.o. daily while patient is in the hospital and rather use sliding scale insulin to prevent hypoglycemia and kidney injury. Glycemic control per pharmacy. Accu-Cheks before meals and at bedtime. Hemoglobin A1c pending. Present on Admission?: Yes (5) Hyperlipidemia: Lipid panel pending, continue for now atorvastatin 20 mg p.o. every afternoon. Present on Admission?: Yes (6) Hypothyroidism: Stable, continue levothyroxine 100 MCG's p.o. daily. Present on Admission?: Yes (7) Obstructive sleep apnea of adult: Will offer offer patient CPAP. Present on Admission?: Yes History of Present Illness Chief Complaint: Left flank pain Primary Care Provider: Latanya Renteria MD Patient is a 83 years old female with past medical history of hypertension, diabetes mellitus type 2, hyperlipidemia, hypothyroidism, morbid obesity, obstructive sleep apnea of the doubt, diverticulosis, CKD stage III who presents to the emergency room with a complaint of bilateral lower quadrant abdominal pain that started intermittently 2 days ago but became acutely constant and worsening this morning. The patient rated the pain as 9 of 10 and notes nothing has helped relieve it. The patient endorses associated nausea and chills but denies any vomiting diarrhea urinary symptoms or fevers. The patient has a history of diverticulosis and needed to have a partial colon resection 9 years ago. The patient reports she had not had any medication for pain today patient reports that she did not try anything to relieve her symptoms. Labs are reviewed: WBCs of 9.3, hemoglobin 13.4, hematocrit 42.1, sodium 138, potassium 4.4, BUN 19, creatinine 1.02, GFR 51.5, hemoglobin A1c March 24, 2019 is 7.3, AST 23 ALT 21 lipase 91 TSH 0.833. Urine is cloudy with increased specific gravity , negative nitrates, negative leukocyte esterase, pyuria over 30 WBCs and bacteriuria 4+. Abdominal CT scan suggesting wall thickening and enhancement of the left ureter with adjacent infiltration which extends to the left collecting system. This favors an infectious process such as pyelitis. No hydronephrosis. No ureteral calculi. Mild bladder wall thickening which may reflect cystitis. If any suspicion of neoplastic etiology should consider urine analysis and urine cytology. Decision was made to admit patient for IV antibiotics and treatment of pyelitis. Allergies Allergy/AdvReac Type Severity Reaction Status Date / Time hydromorphone AdvReac Severe hallucinati Verified 05/19/19 09:12 onsneeta on Home Medications Home Medications Medication Instructions Recorded Confirmed Type aspirin 81 mg tablet,delayed 81 mg PO DAILY tab 11/19/18 05/19/19 History release acetaminophen 325 mg tablet 650 mg PO Q4H PRN #90 tab 11/28/18 05/19/19 Rx allopurinol 100 mg tablet 200 mg PO DAILY #180 tab 11/28/18 05/19/19 Rx atorvastatin 20 mg tablet 20 mg PO QPM #90 tab 11/28/18 05/19/19 Rx blood sugar diagnostic #10 ea 11/28/18 05/19/19 Rx cholecalciferol (vitamin D3) 125 5,000 units PO DAILY #90 tab 11/28/18 05/19/19 Rx mcg (5,000 unit) tablet cyanocobalamin (vitamin B-12) 1,000 mcg IM MONTHLY #1 ml 11/28/18 05/19/19 Rx 1,000 mcg/mL injection solution lancets #50 ea 11/28/18 05/19/19 Rx levothyroxine 100 mcg tablet 100 mcg PO DAILY #90 tab 11/28/18 05/19/19 Rx metformin 1,000 mg tablet 500 mg PO BID #90 tab 11/28/18 05/19/19 Rx multivitamin 1 tab PO QAM #30 tab 11/28/18 05/19/19 Rx omeprazole 40 mg capsule,delayed 40 mg PO ONCE #90 cap 11/28/18 05/19/19 Rx release glimepiride 1 mg tablet See Rx Instructions PO .COMPLEX 11/30/18 05/19/19 Rx #270 tab amlodipine 10 mg tablet 10 mg PO DAILY #90 tab 01/24/19 05/19/19 Rx lisinopril 5 mg tablet 5 mg PO DAILY #30 tab 02/23/19 05/19/19 Rx syringe with needle, safety 3 mL #12 ea 02/24/19 05/19/19 Rx 25 gauge x 5/8" sertraline 100 mg tablet 200 mg PO DAILY #180 tab 05/06/19 05/19/19 Rx docusate sodium 100 mg capsule 100 mg PO BID cap 05/19/19 05/19/19 History linagliptin [Tradjenta] 0 mg PO DAILY 05/19/19 05/19/19 History Past Med/Surg History Medical History Acid reflux disease (Chronic) Anxiety associated with depression (Chronic) Breast cancer (Chronic) CKD (chronic kidney disease), stage III (Chronic) Diabetes mellitus with renal complications (Chronic) Diverticulosis (Chronic) Gout (Chronic) Hyperlipidemia (Chronic) Hypertension (Chronic) Hypothyroidism (Chronic) Obesity (Chronic) Obstructive sleep apnea of adult (Chronic) Osteoarthritis (Chronic) Vitamin B12 deficiency (Chronic) Vitamin D deficiency (Chronic) Surgical History H/O knee surgery History of bladder surgery History of ear, nose, and throat (ENT) surgery throat surgery History of lumpectomy S/P breast biopsy S/P cholecystectomy S/P colon resection S/P colonoscopy S/P hernia repair S/P hysterectomy S/P tonsillectomy Family History Father Diabetes Lymphoma Mother Depression Cardiac disorder Congestive heart failure Daughter Breast cancer Brother Gout Prostate cancer Sister Gout Hypertension Arthritis Social History Preferred Language: Nigerian 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 Beliefs That Will Affect Care: None marital status: Current Living Situation: Spouse Other Information That Helps Us Care for You: No Feels Safe at Home: Yes Safety Concerns: Feels Safe At This Time Smoking Status: Never smoker Do You Dip or Chew Tobacco: No ; Second Hand Exposure: No ; Tobacco Cessation Education Requested by Patient: No Hx Alcohol Use: No Hx Substance Use: No Physical Activity Frequency: Does not Exercise Review of Systems Review of Systems: All systems reviewed & are unremarkable except as noted in HPI & below Physical Exam Constitutional: WD/WN, vitals as above well developed and + morbidly obese Eyes: PERRL, conjunctivae normal, anicteric sclerae ENMT: external ear and nose normal, oropharynx normal Neck: trachea midline, no thyromegaly Respiratory: normal respiratory effort, lungs clear to auscultation Cardiovascular: Heart Sounds: normal S1 and normal S2 Vessels: dorsalis pedis pulses present Gastrointestinal (Abdomen): normal bowel sounds, soft, nontender, no hepatosplenomegaly Musculoskeletal: no cyanosis or clubbing, extremities motor strength 5/5 Skin: no rashes, warm and dry Neurologic: patellar DTR's 2+ bilat, sensation intact Genitourinary: Mild suprapubic tenderness and left flank tenderness. Patient describes as a throbbing pain. Lymphatic: no cervical or axillary lymphadenopathy Results & Data Vital Signs (Past 12 Hours) Vital Signs Temp Pulse Resp BP Pulse Ox 05/19/19 13:00 87 15 154/80 H 93 05/19/19 12:30 82 21 160/78 H 96 05/19/19 12:00 85 17 202/86 H 97 05/19/19 11:30 63 19 204/80 H 97 05/19/19 10:22 36.3 C L 76 16 190/102 H 99 Code Status & VTE Plan Code Status Full code VTE Prophylaxis Plan VTE Prophylaxis will be ordered: Yes PG Care Time/CCT Total # of Minutes Spent Total Time Spent with Patient: Total time spent is greater than 50% in coordination of care (as documented) at patient's floor/unit and/or counseling patient: (1) Hypertension Hypertension type: unspecified Qualified Code(s): I10 - Essential (primary) hypertension
[2019-05-19] MEDS ORDERED: GLUCOSE 10 TABS/TUBE PO PRN (21:36)
[2019-05-19] MEDS ORDERED: GLUCAGON FOR INJ 1 MG VIAL SQ PRN (21:36)
[2019-05-19] MEDS ORDERED: DEXTROSE 50% 50 ML SYRINGE IV PRN (21:36)
[2019-05-19] MEDS ORDERED: GLUCOSE 40% GEL 15 GM TUBE PO PRN (21:36)
[2019-05-19] MEDS ORDERED: CARBOHYDRATES FOR HYPOGLYCEMIA PO PRN (21:36)
[2019-05-19] MEDS ORDERED: PHARMACY GLYCEMIC MGMT CONSULT PRN (21:42)
--- NOTE | 2019-05-19 22:12 | Pharmacy Report ---
Glycemic Control Consultation - Date of Service May 19, 2019 - Scope Scope: Glycemic Pharmacist consulted by Dr Soto on 05/19 for glycemic control and to write orders per [facility] inpatient glycemic control protocol - Objective Weight: 92 kg Accuchecks BSG (last 24hrs): 05/19/19 05/19/19 05/19/19 10:36 17:35 20:49 Glucose 237 H POC Glucose 116 H 178 H Laboratory Data (last 24hrs): 05/19/19 10:36 Potassium 4.4 Carbon Dioxide 28 Anion Gap 3.0 Creatinine 1.02 Est Cr Clr Drug Dosing 49.4 - Recent Pertinent Medications Outpatient Anti-diabetic Regimen: * Amaryl 2 mg in AM, 1 mg in PM * Metformin 500 mg BID * Linagliptin 5 mg daily * A1c = 7.3 % 03/24/19 Risk Factors for Insulin Resistance: * Infection: pyelonephritis - on Rocephin * Diet: T2DM - Assessment & Plan Assessment & Plan: ASSESSMENT: * 83 y/o female with T2DM, admitted for pyelonephritis * Pt is maintained on oral antidiabetic agents as an outpatient * Oral agents are not recommended for inpatient use d/t drug interactions, changing PO intake, and difficulty titrating for acute hyper/hypoglycemia. ADA recommends re-initiating outpatient oral agents 1-2 days prior to discharge if/when appropriate if they were held on admission. * Will hold oral agents for admission and utilize SQ basal bolus insulin regimen which is the recommended regimen for inpatient glycemic control. * Will initiate weight based insulin dosing for insulin serge patient and titrate based on BSG trends. PLAN FOR INPATIENT GLYCEMIC CONTROL: * Holding outpatient oral diabetes medications * Basal insulin * Lantus SQ BID per the following scale: * 8 units for BSG < 180 * 16 units for BSG 180 or above * Bolus insulin * NovoLog per scale ACHS or Q6hrs while NPO * Goal Range: Low 120 mg/dL - High 150 mg/dL (slightly higher goal range d/t patient's age) * Correction Factor: 25 mg/dL/unit * Nutritional / Prandial insulin per carb ratio of 1 unit per 8 grams CHO consumed * Please note that the plan above was derived based on current level of insulin resistance and hospital stress. These recommendations are appropriate for inpatient admission only. Plan of care upon discharge will need to be reassessed to avoid potential outpatient hypo/hyperglycemia. Thank you.
[2019-05-19] MEDS: INSULIN ASPART 100 UNITS/ML 3 ML PEN SC SCH (22:39)
[2019-05-19] MEDS: INSULIN GLARGINE SOLOSTAR 100 UNITS/ML 3 ML PEN SC SCH (22:41)
[2019-05-20] MEDS: LEVOTHYROXINE SODIUM 100 MCG TABLET PO SCH (06:24)
[2019-05-20] MEDS: SODIUM CHLORIDE 0.9% 1000ML 1,000 ML IV SCH (06:24)
[2019-05-20 07:11] LABS: Basophils # (auto) 0.01 K/uL (0-0.2); Basophils % (auto) 0.2 %; Eosinophils # (auto) 0.14 K/uL (0-0.5); Eosinophils % (auto) 2.1 %; Immature Granulocytes # (auto) 0.02 K/uL (0.00-0.02); Immature Granulocytes % (auto) 0.3 %; Lymphocytes % (auto) 16.6 %; Mean Corpuscular Hemoglobin 29.5 pg (25-34); Mean Corpuscular Hgb Conc 31.6 g/dL (32-36); Mean Corpuscular Volume 93.4 fL (80-100); Mean Platelet Volume 12.1 fL (7.4-10.4); Monocytes # (auto) 0.47 K/uL (0.11-0.59); Monocytes % (auto) 7.1 %; Neutrophils # (auto) 4.89 K/uL (1.4-6.5); Neutrophils % (auto) 73.7 %; Platelet Count 154 K/uL (130-400); RDW Coefficient of Variation 14.9 % (11.5-14.5); RDW Standard Deviation 50.6 fL (36.4-46.3); Red Blood Count 4.07 M/uL (4.2-5.4); White Blood Count 6.63 K/uL (4.8-10.8)
[2019-05-20 07:27] LABS: Estimated Average Glucose 171 mg/dl; Hemoglobin A1C 7.6 % (4.5-5.6)
[2019-05-20 07:44] LABS: Albumin Level 2.8 gm/dl (3.4-5.0); BUN Creatinine Ratio 17.9 (10-20); Calcium 9.3 mg/dl (8.5-10.1); Creatinine Clr Calc Pharmacy 54.2 ml/min; Est GFR (African American) 66.8; Est GFR (Non-African American) 57.6; Potassium 4.3 mmol/L (3.5-5.1)
[2019-05-20 07:52] LABS: Albumin Globulin Ratio 0.8 (0.9-2); Bilirubin,Total 0.3 mg/dl (0.2-1); Globulin 3.6 gm/dl (2.5-4.0); Total Protein 6.4 gm/dl (6.4-8.2)
[2019-05-20] MEDS: ASPIRIN 81 MG ECTAB PO SCH (08:40)
[2019-05-20] MEDS: MULTIVITAMIN TAB PO SCH (08:40)
[2019-05-20] MEDS: AMLODIPINE BESYLATE 5 MG TAB PO SCH (08:40)
[2019-05-20] MEDS: PANTOprazole 40 MG TAB PO SCH (08:41)
[2019-05-20] MEDS: DOCUSATE SODIUM 100 MG CAP PO SCH ×2 (08:41→21:00)
[2019-05-20] MEDS: CHOLECALCIFEROL 1,000 UNITS TAB PO SCH (08:41)
[2019-05-20] MEDS: allopurinoL 100 MG TAB PO SCH (08:41)
[2019-05-20] MEDS: lisinopriL 5 MG TAB PO SCH (08:41)
[2019-05-20] MEDS: SERTRALINE HCL 100 MG TABLET PO SCH (08:41)
[2019-05-20] MEDS: INSULIN GLARGINE SOLOSTAR 100 UNITS/ML 3 ML PEN SC SCH ×2 (08:41→21:04)
[2019-05-20] MEDS: INSULIN ASPART 100 UNITS/ML 3 ML PEN SC SCH ×4 (08:42→21:04)
--- NOTE | 2019-05-20 10:48 | Urology Consultation ---
Date of Consultation May 20, 2019 Assessment & Plan (1) UTI symptoms: 83yo F admitted with cystitis, possible pyelonephritis with left ureteral thickening on CT Urine cytology pending. Continue broad spectrum abx, treat for 10-14 days based upon sensitivities. Plan of care discussed with Dr. Abdi. Will plan to repeat imaging in 1 month following resolution of cystitis as outpatient. Thank you for allowing us to participate in the acute care of Mrs. Rasheed. Please reconsult us with additional questions, concerns or changes in patient status. History of Present Illness Attending Physician: Suzie Berger MD History of Present Illness 83yo F admitted via [facility] ER for c/o lower abdominal pain, began 2 days [employer] with associated nausea and chills. Hx of diverticulitis, partial colon resection 9 years ago. Diagnosed with UTI We were consulted to assist in management of UTI and abnormal CT findings. CT reveals thickening and enhancement of left ureter with adjacent infiltration which extends into the left collecting system, suspected pyelitis. No stones, no hydronephrosis. Some mild bladder wall thickening also noted. UC&S prelim positive for >100,000cfu gram neg bacilli. Currently on IV Ceftriaxone. Cr 0.93, WBC 6.63 Denies dysuria, hematuria. Established with Dr. Butts for care of hematuria, known 2 millimeter right renal pelvic lesion being followed. Cytology last completed in Jan 2019, shows atypical cells. Allergies Allergy/AdvReac Type Severity Reaction Status Date / Time hydromorphone AdvReac Severe hallucinati Verified 05/19/19 09:12 ons,confusi on Home Medications Home Medications Medication Instructions Recorded Confirmed Type aspirin 81 mg tablet,delayed 81 mg PO DAILY tab 11/19/18 05/19/19 History release acetaminophen 325 mg tablet 650 mg PO Q4H PRN #90 tab 11/28/18 05/19/19 Rx allopurinol 100 mg tablet 200 mg PO DAILY #180 tab 11/28/18 05/19/19 Rx atorvastatin 20 mg tablet 20 mg PO QPM #90 tab 11/28/18 05/19/19 Rx blood sugar diagnostic #10 ea 11/28/18 05/19/19 Rx cholecalciferol (vitamin D3) 125 5,000 units PO DAILY #90 tab 11/28/18 05/19/19 Rx mcg (5,000 unit) tablet cyanocobalamin (vitamin B-12) 1,000 mcg IM MONTHLY #1 ml 11/28/18 05/19/19 Rx 1,000 mcg/mL injection solution lancets #50 ea 11/28/18 05/19/19 Rx levothyroxine 100 mcg tablet 100 mcg PO DAILY #90 tab 11/28/18 05/19/19 Rx metformin 1,000 mg tablet 500 mg PO BID #90 tab 11/28/18 05/19/19 Rx multivitamin 1 tab PO QAM #30 tab 11/28/18 05/19/19 Rx omeprazole 40 mg capsule,delayed 40 mg PO ONCE #90 cap 11/28/18 05/19/19 Rx release glimepiride 1 mg tablet See Rx Instructions PO .COMPLEX 11/30/18 05/19/19 Rx #270 tab amlodipine 10 mg tablet 10 mg PO DAILY #90 tab 01/24/19 05/19/19 Rx lisinopril 5 mg tablet 5 mg PO DAILY #30 tab 02/23/19 05/19/19 Rx syringe with needle, safety 3 mL #12 ea 02/24/19 05/19/19 Rx 25 gauge x 5/8" sertraline 100 mg tablet 200 mg PO DAILY #180 tab 05/06/19 05/19/19 Rx docusate sodium 100 mg capsule 100 mg PO BID cap 05/19/19 05/19/19 History linagliptin [Tradjenta] 0 mg PO DAILY 05/19/19 05/19/19 History Patient History Medical History Acid reflux disease (Chronic) Anxiety associated with depression (Chronic) Breast cancer (Chronic) CKD (chronic kidney disease), stage III (Chronic) Diabetes mellitus with renal complications (Chronic) Diverticulosis (Chronic) Gout (Chronic) Hyperlipidemia (Chronic) Hypertension (Chronic) Hypothyroidism (Chronic) Obesity (Chronic) Obstructive sleep apnea of adult (Chronic) Osteoarthritis (Chronic) Vitamin B12 deficiency (Chronic) Vitamin D deficiency (Chronic) Surgical History H/O knee surgery History of bladder surgery History of ear, nose, and throat (ENT) surgery throat surgery History of lumpectomy S/P breast biopsy S/P cholecystectomy S/P colon resection S/P colonoscopy S/P hernia repair S/P hysterectomy S/P tonsillectomy Family History Father Diabetes Lymphoma Mother Depression Cardiac disorder Congestive heart failure Daughter Breast cancer Brother Gout Prostate cancer Sister Gout Hypertension Arthritis Social History Preferred Language: Amharic Communication Ability: 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 Beliefs That Will Affect Care: None marital status: Current Living Situation: Spouse Other Information That Helps Us Care for You: No Feels Safe at Home: Yes Safety Concerns: Feels Safe At This Time Smoking Status: Never smoker Do You Dip or Chew Tobacco: No ; Second Hand Exposure: No ; Tobacco Cessation Education Requested by Patient: No Hx Alcohol Use: No Hx Substance Use: No Physical Activity Frequency: Does not Exercise Review of Systems Review of Systems: All systems reviewed & are unremarkable except as noted in HPI & below Physical Exam Constitutional: no acute distress and not ill appearing Eyes: no nystagmus ENMT: Ears: no hearing impairment Neck: trachea midline Respiratory: no respiratory distress and no cough Cardiovascular: Vessels: no JVD Chest (Breasts): Chest: normal inspection of chest Gastrointestinal (Abdomen): Inspection/Auscultation: abdomen not distended and no abdominal edema Percussion/Palpation: abdomen soft; abdomen nontender Musculoskeletal: Head/Neck/Chest: normocephalic and head atraumatic Skin: no rashes, warm and dry Neurologic: awake; not confused and not obtunded Psychiatric: Orientation: alert and oriented x 3 Eye Contact: good eye contact Affect: no depressed affect Lymphatic: no lymphadenopathy and no lymphedema Results & Data Vital Signs (Past 12 Hours) Vital Signs Temp Pulse Resp BP Pulse Ox 05/20/19 07:30 36.9 C 64 16 152/76 H 95 05/19/19 23:06 36.6 C 59 L 16 144/77 H 95 PG Care Time/CCT Total # of Minutes Spent Total Time Spent with Patient: Total time spent is greater than 50% in coordination of care (as documented) at patient's floor/unit and/or counseling patient:
[2019-05-20] MEDS: cefTRIAXone SODIUM 2,000 MG in DEXTROSE 5% 50 ML IV SCH (13:13)
--- NOTE | 2019-05-20 15:22 | Pharmacy Report ---
Pharmacy Glycemic Short Note 2 - Date of Service May 20, 2019 - Glycemic Short BSG Results (Last 24 hours): 05/19/19 05/19/19 05/20/19 17:35 20:49 06:47 Glucose 140 H POC Glucose 116 H 178 H 05/20/19 05/20/19 07:56 12:14 Glucose POC Glucose 155 H 135 H OUTPATIENT ANTIDIABETIC REGIMEN: * Amaryl 2 mg PO QAM, 1 mg PO QPM * Metformin 500 mg BID * Linagliptin 5 mg daily ASSESSMENT: * Patient received total 10 units of insulin yesterday: 8 units of basal and 2 units of bolus. Insulin was started at HS yesterday, * Fasting BSG slightly elevated today. Lantus continued on a scale BID. * Patient had minimal carbs with breakfast today, lunch BSG at 135, loosened Novolog carb ratio slightly. PLAN FOR INPATIENT GLYCEMIC CONTROL: * Hold outpatient oral diabetes medications * Basal insulin: continued * Lantus BID on a scale as follows: - 8 units if BSG less than 180; 16 units if BSG 180 or greater. * Bolus insulin: loosened CR * NovoLog per scale ACHS or Q6hrs while NPO * Goal Range: Low 120 mg/dL - High 150 mg/dL * Correction Factor: 25 mg/dL/unit * Nutritional / Prandial insulin per carb ratio of 1 unit per 9 grams CHO consumed PLAN FOR DISCHARGE: * HA1c = 7.6% * Goal A1c is less than 8% based on patient's age and co-morbidities. * Recommend continue current home anti-diabetic regimen upon discharge.
--- NOTE | 2019-05-20 15:42 | Hospitalist Progress Note ---
Date of Service May 20, 2019 Assessment & Plan (1) Pyelonephritis: Admitted with significant left-sided abdominal pain and found to have significant inflammation of the left ureter with possible pyelonephritis on CT scan Urinalysis is significantly abnormal -Started on IV ceftriaxone, IV fluids, and already having significant improvement Urine culture growing gram-negative rods, ID and sensitivity pending -DC IV fluids -Follow urine culture -Continue ceftriaxone 2 g IV daily -Pain management with Toradol 15 mg IV every 6 hours as needed for pain and Percocet 5 mg p.o. every 4 hours as needed. -Appreciate urology consultation-recommends continued antibiotics for 10 to [address] scan repeat in 1 month -Checking urine cytology-has had atypical urothelial cells in the past and has followed with urology for a right renal 2 mm lesion -We will need follow-up with urology after discharge (2) UTI (urinary tract infection): As above (3) Hypertension: Stable, continue home medicine amlodipine 10 mg p.o. daily, aspirin 81 mg p.o. daily, (4) CKD (chronic kidney disease), stage III: Creatinine normal at 0.9 Avoid nephrotoxic agents. (5) Diabetes mellitus with renal complications: Glycemic control per pharmacy. Hold hypoglycemic agents such as metformin 500 mg p.o. twice daily linagliptin and glimepiride 1 mg p.o. daily while patient is in the hospital and rather use sliding scale insulin to prevent hypoglycemia and kidney injury. Glycemic control per pharmacy. Accu-Cheks before meals and at bedtime. Hemoglobin A1c fairly well controlled at 7.6% (6) Hyperlipidemia: -Continue atorvastatin (7) Hypothyroidism: TSH stable, continue levothyroxine 100 MCG's p.o. daily. (8) Obstructive sleep apnea of adult: CPAP while in the hospital (9) Anxiety associated with depression: Stable -Continue home sertraline (10) DVT prophylaxis: Lovenox SQ Disposition-continued stay, but if urine culture result comes back tomorrow and has an available p.o. option for antibiotics, could send home tomorrow Subjective Patient feeling much better than when she came in. Only very minimal left sided abdominal pain at this point, has chronic back pain but nothing worse than her usual. Denies fevers chills or sweats, denies chest pain or shortness of breath. No nausea or vomiting. She is eating well. She has not moved her bowels in a couple of days. No urinary symptoms. Is ambulating in the room. Review of Systems Review of Systems: All systems reviewed & are unremarkable except as noted in HPI & below Physical Exam Constitutional: WD/WN, vitals as above Eyes: PERRL, conjunctivae normal, anicteric sclerae ENMT: external ear and nose normal, oropharynx normal Neck: trachea midline, no thyromegaly Respiratory: normal respiratory effort, lungs clear to auscultation Cardiovascular: RRR, no murmur, no edema Chest (Breasts): Chest: normal inspection of chest Gastrointestinal (Abdomen): Inspection/Auscultation: abdomen normal to inspection and normal bowel sounds Percussion/Palpation: + abdomen tender ( Very minimally in the left lower quadrant without guarding or rebound) and abdomen soft; abdomen not rigid and no abdominal mass Musculoskeletal: Extremities: extremities normal to inspection; no cyanosis and no clubbing Skin: no rashes, warm and dry Neurologic: moves all extremities and awake; no focal motor deficits Psychiatric: A+Ox3, euthymic affect Lymphatic: no lymphedema Results & Data Vital Signs (Past 12 Hours) Vital Signs Temp Pulse Resp BP Pulse Ox 05/20/19 07:30 36.9 C 64 16 152/76 H 95 Laboratory Results Labs reviewed, CBC within normal limits, BMP acceptable, hemoglobin A1c 7.6% TSH 0.833 PG Care Time/CCT Total # of Minutes Spent Total Time Spent with Patient: Total time spent is greater than 50% in coordination of care (as documented) at patient's floor/unit and/or counseling patient: (1) Hypertension Hypertension type: unspecified Qualified Code(s): I10 - Essential (primary) hypertension
[2019-05-20] MEDS: ENOXAPARIN INJ 40 MG/0.4 ML SYR SQ SCH (21:00)
[2019-05-20] MEDS: ATORVASTATIN 20 MG TAB PO SCH (21:00)
[2019-05-21] MEDS: LEVOTHYROXINE SODIUM 100 MCG TABLET PO SCH (05:37)
[2019-05-21 06:47] LABS: Basophils # (auto) 0.02 K/uL (0-0.2); Basophils % (auto) 0.4 %; Eosinophils # (auto) 0.16 K/uL (0-0.5); Eosinophils % (auto) 2.9 %; Hematocrit (blood only) 37.2 % (37-47); Hemoglobin 11.6 g/dL (12.0-16.0); Immature Granulocytes # (auto) 0.03 K/uL (0.00-0.02); Immature Granulocytes % (auto) 0.5 %; Lymphocytes # (auto) 1.03 K/uL (1.2-3.4); Lymphocytes % (auto) 18.7 %; Mean Corpuscular Hemoglobin 29.1 pg (25-34); Mean Corpuscular Hgb Conc 31.2 g/dL (32-36); Mean Corpuscular Volume 93.2 fL (80-100); Mean Platelet Volume 11.6 fL (7.4-10.4); Monocytes # (auto) 0.42 K/uL (0.11-0.59); Monocytes % (auto) 7.6 %; Neutrophils # (auto) 3.85 K/uL (1.4-6.5); Neutrophils % (auto) 69.9 %; Platelet Count 153 K/uL (130-400); RDW Coefficient of Variation 14.7 % (11.5-14.5); RDW Standard Deviation 50.1 fL (36.4-46.3); Red Blood Count 3.99 M/uL (4.2-5.4); White Blood Count 5.51 K/uL (4.8-10.8)
[2019-05-21 07:26] LABS: Albumin Level 2.8 gm/dl (3.4-5.0); Est GFR (African American) 69.5; Potassium 4.1 mmol/L (3.5-5.1)
[2019-05-21 07:28] LABS: Albumin Globulin Ratio 0.8 (0.9-2); Bilirubin,Total 0.3 mg/dl (0.2-1); Globulin 3.5 gm/dl (2.5-4.0); Total Protein 6.3 gm/dl (6.4-8.2)
[2019-05-21] MEDS: DOCUSATE SODIUM 100 MG CAP PO SCH (07:46)
[2019-05-21] MEDS: ASPIRIN 81 MG ECTAB PO SCH (07:46)
[2019-05-21] MEDS: PANTOprazole 40 MG TAB PO SCH (07:47)
[2019-05-21] MEDS: MULTIVITAMIN TAB PO SCH (07:47)
[2019-05-21] MEDS: SERTRALINE HCL 100 MG TABLET PO SCH (07:47)
[2019-05-21] MEDS: AMLODIPINE BESYLATE 5 MG TAB PO SCH (07:47)
[2019-05-21] MEDS: lisinopriL 5 MG TAB PO SCH (07:47)
[2019-05-21] MEDS: CHOLECALCIFEROL 1,000 UNITS TAB PO SCH (07:47)
[2019-05-21] MEDS: allopurinoL 100 MG TAB PO SCH (07:48)
[2019-05-21] MEDS ORDERED: INSULIN GLARGINE SOLOSTAR 100 UNITS/ML 3 ML PEN SC SCH (09:00)
[2019-05-21] MEDS: INSULIN ASPART 100 UNITS/ML 3 ML PEN SC SCH ×2 (09:46→12:46)
[2019-05-21] MEDS: cefTRIAXone SODIUM 2,000 MG in DEXTROSE 5% 50 ML IV SCH (12:46)
--- NOTE | 2019-05-21 13:33 | Discharge Summary ---
Date of Service May 21, 2019 Admission HPI Per Admitting Provider Patient is a 83 years old female with past medical history of hypertension, diabetes mellitus type 2, hyperlipidemia, hypothyroidism, morbid obesity, obstructive sleep apnea of the doubt, diverticulosis, CKD stage III who presents to the emergency room with a complaint of bilateral lower quadrant abdominal pain that started intermittently 2 days ago but became acutely constant and worsening this morning. The patient rated the pain as 9 of 10 and notes nothing has helped relieve it. The patient endorses associated nausea and chills but denies any vomiting diarrhea urinary symptoms or fevers. The patient has a history of diverticulosis and needed to have a partial colon resection 9 years ago. The patient reports she had not had any medication for pain today patient reports that she did not try anything to relieve her symptoms. Labs are reviewed: WBCs of 9.3, hemoglobin 13.4, hematocrit 42.1, sodium 138, potassium 4.4, BUN 19, creatinine 1.02, GFR 51.5, hemoglobin A1c March 24, 2019 is 7.3, AST 23 ALT 21 lipase 91 TSH 0.833. Urine is cloudy with increased specific gravity , negative nitrates, negative leukocyte esterase, pyuria over 30 WBCs and bacteriuria 4+. Abdominal CT scan suggesting wall thickening and enhancement of the left ureter with adjacent infiltration which extends to the left collecting system. This favors an infectious process such as pyelitis. No hydronephrosis. No ureteral calculi. Mild bladder wall thickening which may reflect cystitis. If any suspicion of neoplastic etiology should consider urine analysis and urine cytology. Decision was made to admit patient for IV antibiotics and treatment of pyelitis. Principal Diagnosis Acute pyelonephritis, UTI Discharge Exam Constitutional WD/WN, vitals as above (sitting in chair at bedside) Eyes + anicteric sclerae Neck trachea midline, no thyromegaly Respiratory normal respiratory effort, lungs clear to auscultation Cardiovascular RRR, no murmur, no edema Chest (Breasts) Chest: normal inspection of chest Gastrointestinal (Abdomen) Inspection/Auscultation: abdomen normal to inspection and normal bowel sounds Percussion/Palpation: + abdomen tender (Very minimally in the left lower quadrant without guarding or rebound) and abdomen soft; abdomen not rigid and no abdominal mass Musculoskeletal Extremities: extremities normal to inspection; no cyanosis and no clubbing Skin no rashes, warm and dry Neurologic moves all extremities and awake; no focal motor deficits Psychiatric A+Ox3, euthymic affect Lymphatic no lymphedema Discharge Data Allergies Allergy/AdvReac Type Severity Reaction Status Date / Time hydromorphone AdvReac Severe hallucinati Verified 05/19/19 09:12 ons,neeta on Consultations 05/19/19 12:57 ED Decision to Admit Stat 05/20/19 10:00 Consult Urology Routine Ordered Studies 05/19/19 11:08 CT abd pelvis IV con only Stat Hospital Course (1) Pyelonephritis: Admitted with severe left-sided abdominal pain and found to have significant inflammation of the left ureter with possible pyelonephritis on CT scan Urinalysis is significantly abnormal Ur cx now growing Klebsiella pneumoniae resistant to Macrobid and Unasyn -Started on IV ceftriaxone, was given IV fluids, and now with significant improvement in pain Also was constipated and now moving bowels after taking Miralax -convert to po Cipro 500mg po bid x 8 more days for a total fo 10 days of antibiotics -Appreciate urology consultation-recommends continued antibiotics for 10 to [address] scan repeat in 1 month--> will have patient follow up with Urology -urine cytology pending at time of discharge-has had atypical urothelial cells in the past and has followed with urology for a right renal 2 mm lesion (2) UTI (urinary tract infection): As above (3) Hypertension: Stable, continue home medicine amlodipine 10 mg p.o. daily, aspirin 81 mg p.o. daily, (4) CKD (chronic kidney disease), stage III: Creatinine normal at 0.9 Avoid nephrotoxic agents. (5) Diabetes mellitus with renal complications: Glycemic control per pharmacy. Held metformin, Tradjenta, and glimepiride while inpatient Hemoglobin A1c fairly well controlled at 7.6% was given Lantus/Novolog while here -ok to restart home meds at time of dc (6) Hyperlipidemia: -Continue atorvastatin (7) Hypothyroidism: TSH stable, continue levothyroxine 100 MCG's p.o. daily. (8) Obstructive sleep apnea of adult: CPAP while in the hospital (9) Anxiety associated with depression: Stable -Continue home sertraline (10) DVT prophylaxis: Lovenox SQ Disposition-stable for dc to home Total Time Total Time Spent Total Time Spent (In Minutes): 35 min Total Time Includes: Examination of the Patient, Discharge Planning and Medication Reconciliation Discharge Plan Discharge Items Patient Disposition: Home - Self-Care Reason For Visit: PYELONEPHRITIS Discharge Diagnosis: UTI, Acute pyelonephritis Condition on Discharge: Good Goals: You have been hospitalized for an acute medical problem. During your stay at [facility], we have made an effort to correct the problem that brought you to the hospital while keeping you as comfortable as possible. Medications were used to bring your condition under control and your discharge instructions will include directions for any medications you should take after leaving the hospital. Please make sure you see your Primary Care Provider as part of your follow up plan. Activity: Resume your previous activity Bathing: No limitations Weightbearing: Full weightbearing Non-emergency contact: Primary Care Provider and Urologist Call non-emergency contact if: you have any medication questions, your symptoms worsen, your pain is not controlled, your pain is worsening, your pain is unusual for you, your pain is concerning for you, you have a fever and your temperature is above 101 Follow-up/Referrals: Corey Butts MD [Physician] - (Please call for a hospital follow up appointment for in 2-3 weeks.) Latanya Renteria MD [Primary Care Provider] - (Please call for a follow up appointment within 1 week.) Diet: Carb Consistent or DM2 Addtl Attending Provider Instructions: Please finish out the course of antibiotics for your kidney infection for 8 more days. You should follow up with your PCP within 1 week and with the Urologist in 2-3 weeks. The Urologist is recommending a repeat CT scan of your abdomen/pelvis in 4 weeks. Pending Studies at Discharge: Yes Studies:: Urine cytology Stand-Alone Forms: [facility] Medications and DC Order Prescriptions: New polyethylene glycol 3350 [Miralax] 17 gram Powder In Packet 17 g PO DAILY PRN (Reason: constipation) Qty: 14 RF: 0 ciprofloxacin HCl [Cipro] 500 mg tablet 500 mg PO BID Qty: 16 RF: 0 Continued amlodipine 10 mg tablet 10 mg PO DAILY Qty: 90 RF: 3 lisinopril 5 mg tablet 5 mg PO DAILY Qty: 30 RF: 3 (DME) BD Integra Syringe 3 mL 25 gauge x 5/8" syringe See Dose Instructions .ROUTE .MEDSUPPLY Qty: 12 RF: 0 sertraline 100 mg tablet 200 mg PO DAILY Qty: 180 RF: 3 aspirin 81 mg tablet,delayed release (DR/EC) 81 mg PO DAILY RF: 0 cholecalciferol (vitamin D3) 5,000 unit tablet 5,000 units PO DAILY Qty: 90 RF: 3 cyanocobalamin (vitamin B-12) 1,000 mcg/mL solution 1,000 mcg IM MONTHLY Qty: 1 RF: 3 multivitamin [Daily Multi-Vitamin] tablet 1 tab PO QAM Qty: 30 RF: 0 acetaminophen [Tylenol] 325 mg tablet 650 mg PO Q4H PRN (Reason: pain) Qty: 90 RF: 0 (DME) OneTouch Ultra Blue Test Strip strip See Dose Instructions .ROUTE .MEDSUPPLY Qty: 10 RF: 0 (DME) lancets misc See Dose Instructions .ROUTE .MEDSUPPLY Qty: 50 RF: 0 allopurinol 100 mg tablet 200 mg PO DAILY Qty: 180 RF: 3 atorvastatin 20 mg tablet 20 mg PO QPM Qty: 90 RF: 3 levothyroxine 100 mcg tablet 100 mcg PO DAILY Qty: 90 RF: 3 metformin 1,000 mg tablet 500 mg PO BID Qty: 90 RF: 3 omeprazole 40 mg capsule,delayed release(DR/EC) 40 mg PO ONCE Qty: 90 RF: 3 glimepiride 1 mg tablet See Patient Comments PO .COMPLEX Qty: 270 RF: 3 docusate sodium 100 mg capsule 100 mg PO BID RF: 0 Tradjenta 5 mg tablet 0 mg PO DAILY RF: 0 Discharge Orders: Discharge Order (Routine); Ordered 05/21/19 Ordered By: Suzie Berger Admission Data Admit Date/Time: 05/19/19 14:49 Attending Provider: Suzie Berger Admit Provider: Gianfranco Soto Primary Care Provider: Latanya Renteria Other Providers: Gianfranco Soto ; Jayme Gonzalez
== END 2019-05-21 16:07 | disposition home or self-care (01) | DRG 690 ==
LOC: ED 10:07 → SUATTDRO 14:49 → 3N 14:49

== ENCOUNTER 2021-04-21 12:41 | Observation (INO) ==
[2021-04-21 15:47] LABS: Basophils # (auto) 0.03 K/uL (0-0.2); Basophils % (auto) 0.4 %; Eosinophils # (auto) 0.28 K/uL (0-0.5); Hematocrit (blood only) 38.6 % (37-47); Hemoglobin 11.9 g/dL (12.0-16.0); Immature Granulocytes # (auto) 0.02 K/uL (0.00-0.02); Immature Granulocytes % (auto) 0.3 %; Lymphocytes # (auto) 1.54 K/uL (1.2-3.4); Lymphocytes % (auto) 22.1 %; Mean Corpuscular Hemoglobin 29.5 pg (25-34); Mean Corpuscular Hgb Conc 30.8 g/dL (32-36); Mean Corpuscular Volume 95.5 fL (80-100); Mean Platelet Volume 12.5 fL (7.4-10.4); Monocytes # (auto) 0.52 K/uL (0.11-0.59); Monocytes % (auto) 7.5 %; Neutrophils # (auto) 4.58 K/uL (1.4-6.5); Neutrophils % (auto) 65.7 %; Platelet Count 154 K/uL (130-400); RDW Standard Deviation 52.5 fL (36.4-46.3); Red Blood Count 4.04 M/uL (4.2-5.4); White Blood Count 6.97 K/uL (4.8-10.8)
[2021-04-21 16:12] LABS: Alanine Aminotransferase 16 U/L (12-78); Albumin Level 3.5 gm/dl (3.4-5.0); Aspartate Aminotransferase 19 U/L (15-37); Blood Urea Nitrogen 15 mg/dl (7-18); Calcium 9.8 mg/dl (8.5-10.1); Carbon Dioxide 29 mmol/L (21-32); Chloride 105 mmol/L (98-107); Creatinine Clr Calc Pharmacy 49.6 ml/min; Est GFR (African American) 63.4 ml/min; Est GFR (Non-African American) 54.7 ml/min; Glucose 86 mg/dl (70-99); Magnesium 1.7 mg/dl (1.8-2.4); Potassium 4.1 mmol/L (3.5-5.1); Sodium 140 mmol/L (136-145)
[2021-04-21 16:23] LABS: Albumin Globulin Ratio 0.9 (0.9-2); Alkaline Phosphatase 89 U/L (45-117); Bilirubin,Total 0.3 mg/dl (0.2-1); Globulin 3.9 gm/dl (2.5-4.0); Total Protein 7.4 gm/dl (6.4-8.2); Troponin I < 0.015 ng/ml (0-0.045)
--- NOTE | 2021-04-21 16:25 | XRay Report ---
XR chest 1V portable HISTORY: 85 years-old Female weakness acute weakness COMPARISON: Chest and rib radiographs 07/21/2019 TECHNIQUE: Portable AP view the chest FINDINGS: Cardiac silhouette is enlarged. Eventration of the right hemidiaphragm. Calcified plaque of the thora cic aorta. No pneumothorax, pleural effusion, airspace consolidation or overt pulmonary edema. No acu te fracture. IMPRESSION: Cardiomegaly without acute process. ACT 112: Negative or not required by law. The above report was generated using voice recognition software. It may contain grammatical, syntax o r spelling errors. Electronically signed by: Wesly Mcdowell M.D. 04/21/2021 4:24 PM
--- NOTE | 2021-04-21 17:52 | CT Scan Report ---
CT head/brain wo con CLINICAL HISTORY: 85 years-old Female with confusion. Acutely altered mental status with weakness TECHNIQUE: Multiple axial CT images of the head were obtained without contrast. A dose lowering tech nique was utilized adhering to the principles of ALARA. COMPARISON: Brain MRI 11/27/2015. FINDINGS: No acute intracranial hemorrhage, midline shift, intracranial mass, hydrocephalus, territorial ischem ia or abnormal extra-axial collection. Age-related involutional changes. White matter hypodensities s uggestive of chronic microvascular ischemic disease. Ill-defined 1.8 cm focus of decreased attenuatio n is noted within the right periventricular parietal lobe on image 19 series 2 is similar to prior, l ikely secondary to small vessel ischemic disease.. Subcentimeter chronic appearing lacunar infarct no karyn in the region of the inferior left lateral nucleus on image 11 of series 2. Cerebral vascular myra cifications. The calvarium is intact. Prior bilateral lens repair. The paranasal sinuses, mastoid air cells, and m iddle ear cavities are clear. IMPRESSION: No acute intracranial abnormality. ACT 112: Negative or not required by law. The above report was generated using voice recognition software. It may contain grammatical, syntax o r spelling errors. Electronically signed by: Wesly Mcdowell M.D. 04/21/2021 5:50 PM
--- NOTE | 2021-04-21 17:56 | Emergency Department Note ---
Impression & Plan Acute confusion, Generalized abdominal pain ED Provider Note INFORMANT: Patient ED PROVIDER(S): Domenico Kenney MD CHIEF COMPLAINT: Confusion PLAN: Disposition: Admitted Condition: Good Outpatient prescription management: none Referral: None MEDICAL DECISION MAKING: Patient presented complaints of transient confusion difficulty speaking. She had some abdominal discomfort and was concerned about diverticulitis that she has had this in the past. She also notes having some chronic abdominal discomfort as well. Work-up was initiated. Her CBC and chemistry panel was unremarkable. ECG was unremarkable as well. Troponin was negative. Urinalysis shows some trace blood but no clear signs of infection. Chest x-ray was negative. CT imaging of the head and abdomen pelvis did not reveal any acute findings. On further discussion with the patient and family the symptoms were described as fairly significant by the daughter. It is possible that this was neurologic as I help find a reason otherwise at this point. I discussed further management in the hospital. The patient was given full dose aspirin and CT angiography was ordered. [facility], Dr. Deal. The patient was admitted for further management. Triage Nursing notes reviewed and agree them. Vital Signs: reviewed and remarkable for no significant abnormalities Differential diagnosis: Infection, dehydration, metabolic abnormality, hypo/hyperglycemia, electrolyte disturbance, anemia, hypoxia, cardiac sources, intracerebral event, toxicologic, neurologic, as well as other pathologies. Diagnostics interpreted by me: ECG: Twelve-lead ECG reveals a normal sinus rhythm at [address] elevation or depression. Normal axis and intervals. Cardiac Monitoring: Cardiac monitoring ordered by me: The patient was placed on continuous cardiac monitoring and observed. It revealed a normal sinus rhythm at 67beats per minute without ectopy or evidence of dysrhythmia. Imaging studies: Chest x-ray and CT scan of the head as above. These were negative. HPI: The patient is a 85 year old female who presents to the Emergency Room with complaints of transient confusion. This started briefly this morning, resolved, returned and is now resolved again. The patient also notes the following associated symptoms, generalized abdominal pain. Patient has a history of diverticulitis and is concerned for the same. The patient has taken no medication for relieving factors. Current pain is rated as 3/10. Patient's daughter states the episodes, albeit brief were fairly significant. The patient was disoriented. No history of TIA or CVA. Pt denies LOC, headache, fevers, chills, diaphoresis, visual changes, neck pain, chest pain, breathing difficulties, nausea, vomiting, back pain, melena, hematochezia, urinary symptoms, numbness, focal weakness, lymphadenopathy, rash, or other complaints. ROS: See above HPI for pertinent positives & negatives. A total of 10 systems reviewed and were otherwise negative. PAST MEDICAL HISTORY:See Below , diverticulitis PAST SURGICAL HISTORY:See Below, FAMILY HISTORY:See Below SOCIAL HISTORY:See Below, retired HOME MEDICATIONS:See Below ALLERGIES:See Below VITALS:See Below PHYSICAL EXAMINATION: GENERAL: Awake, alert, well-appearing, in no distress HENT: Normocephalic, atraumatic. Oropharynx unremarkable. EYES: Normal conjunctiva. Sclera non-icteric. PERRLA. EOMI. NECK: Inspection normal. Non-tender. Supple. No nuchal rigidity. FROM. No masses. RESPIRATORY: Clear to auscultation. No wheezes. No rales. Normal respiratory effort. CARDIAC: Normal rate. Normal rhythm. No murmurs. No rubs. Extremities warm and well perfused. Pulses equal. No JVD. GI: Soft, non-distended. Mid and left-sided tenderness to palpation. No rebound or guarding. No masses. RECTAL: Deferred. MUSCULOSKELETAL: Atraumatic. Chest examination reveals no tenderness. The back is symmetrical on inspection without obvious abnormality. There is no CVA tenderness to palpation. No joint edema. LOWER EXTREMITIES: Calves are equal size bilaterally and non-tender. No edema. No discoloration. NEURO: Normal sensorium. No sensory or motor deficits noted. Cranial nerves II through XII intact SKIN: No rash or jaundice noted. Domenico Kenney MD Past Med/Surg History Medical History (Updated 04/21/21 @ 20:21 by Ramone Deal MD) Acid reflux disease Age related osteoporosis OSTEOPEROSIS Anxiety associated with depression Breast cancer HX DX 2010 - RIGHT, LUMPECTOMY Chronic back pain CANE CKD (chronic kidney disease), stage III Diabetes NIDDM Diverticulosis HX Gait abnormality Gout HX Hard of hearing History of anesthesia reaction PER DAUGHTER TAKES LONGER THAN AVERAGE TO WAKE UP History of COVID-20 JUL 2020. symptoms: flu-like symptoms. no current problems. HTN (hypertension) Hyperlipidemia Hypothyroidism Memory problem Obesity Sleep apnea CPAP Surgical History History of bladder surgery History of ear, nose, and throat (ENT) surgery throat surgery History of lumpectomy Right breast S/P breast biopsy HX S/P carpal tunnel release right S/P cholecystectomy S/P colon resection S/P colonoscopy S/P cubital tunnel release S/P hernia repair S/P hysterectomy S/P tonsillectomy HX Status post left partial knee replacement HX Status post right partial knee replacement HX Family History Father Diabetes Lymphoma Mother Depression Cardiac disorder Congestive heart failure Daughter Breast cancer Brother Gout Prostate cancer Sister Gout Hypertension Arthritis Social History Smoking Status: Never smoker Second Hand Exposure: No; Hx Alcohol Use: No Hx Substance Use: No Preferred Language: Macedonian Communication Ability: Effective Education Dean Required: No Beliefs That Will Affect Care: None marital status: Current Living Situation: Spouse Feels Safe at Home: Yes Physical Activity Frequency: Does not Exercise Seatbelt Use: always Assistive Devices: Cane, CPAP and Glasses Allergies Allergies Allergy/AdvReac Type Severity Reaction Status Date / Time hydromorphone AdvReac Severe hallucinati Verified 04/21/21 16:51 ons,neeta on Home Meds Home Medications Medication Instructions Recorded Confirmed aspirin 81 mg tablet,delayed 81 mg PO HS tab 11/19/18 04/21/21 release acetaminophen 500 mg tablet 500 mg PO UD PRN 07/21/19 04/21/21 (Tylenol Extra Strength) mecobalamin (vitamin B12) 1,000 5,000 mcg SUBLINGUAL QDL 09/12/20 04/21/21 mcg disintegrating tablet,sublingual allopurinol 100 mg tablet 200 mg PO HS 02/05/21 04/21/21 amlodipine 10 mg tablet 10 mg PO QAM 02/05/21 04/21/21 atorvastatin 20 mg tablet 20 mg PO HS 02/05/21 04/21/21 glipizide 5 mg tablet, extended 5 mg PO QAM 02/05/21 04/21/21 release 24 hr (Glucotrol XL) lisinopril 10 mg tablet 10 mg PO HS 02/05/21 04/21/21 omeprazole 40 mg capsule,delayed 40 mg PO QAM 02/05/21 04/21/21 release sertraline 100 mg tablet 200 mg PO HS 02/05/21 04/21/21 alendronate 70 mg tablet 70 mg PO WK 03/25/21 04/21/21 cholecalciferol (vitamin D3) 125 5,000 units PO QDL 04/15/21 04/21/21 mcg (5,000 unit) tablet levothyroxine 100 mcg tablet 100 mcg PO DAILYBB 04/21/21 04/21/21 Previous Rx's Medication Instructions Recorded blood sugar diagnostic (OneTouch #10 ea 11/28/18 Ultra Blue Test Strip) lancets #50 ea 11/28/18 polyethylene glycol 3350 17 gram 17 g PO DAILY PRN #14 ea 05/21/19 oral powder packet (Miralax) metformin 1,000 mg tablet 500 mg PO BID #90 tab 04/30/20 straight cane #1 ea 12/21/20 docusate sodium 100 mg capsule 100 mg PO UD PRN #30 cap 03/27/21 buspirone 5 mg tablet 5 mg PO BID #180 tab 03/29/21 linagliptin 5 mg tablet (Tradjenta) 5 mg PO QAM #90 tab 04/11/21 tramadol 50 mg tablet 50 mg PO Q4H PRN #15 tab 04/17/21 Results & Data (ED) Vital Signs Vital Signs - 24 hr 04/21/21 12:53 04/21/21 16:59 04/21/21 17:13 Temperature 36.2 C L Temperature Source Skin Pulse Rate 82 Pulse Rate [Finger] 66 Pulse Rhythm Regular Pulse Strength Normal Respiratory Rate 20 17 Respiratory Effort / Characteristics Non-Labored Spontaneous Respiratory Depth Normal Respiratory Pattern Regular Blood Pressure 167/79 H Blood Pressure [Left Arm] 167/76 H Blood Pressure Mean 108 Blood Pressure Mean [Left Arm] 106 Pulse Oximetry 99 97 Oxygen Delivery Method Room Air Room Air Sepsis Recent Fever Within 48 Hours No Sepsis New/Unexplained Change in Mental Status N/A Sepsis Action Taken by Nursing No Action Required 04/21/21 18:26 04/21/21 18:30 04/21/21 18:45 Temperature Temperature Source Pulse Rate 68 72 65 Pulse Rate [Finger] Pulse Rhythm Pulse Strength Respiratory Rate 16 21 17 Respiratory Effort / Characteristics Respiratory Depth Respiratory Pattern Blood Pressure Blood Pressure [Left Arm] Blood Pressure Mean Blood Pressure Mean [Left Arm] Pulse Oximetry 95 Oxygen Delivery Method Sepsis Recent Fever Within 48 Hours Sepsis New/Unexplained Change in Mental Status Sepsis Action Taken by Nursing 04/21/21 19:00 04/21/21 20:00 Temperature Temperature Source Pulse Rate 62 Pulse Rate [Finger] Pulse Rhythm Pulse Strength Respiratory Rate 17 Respiratory Effort / Characteristics Respiratory Depth Respiratory Pattern Blood Pressure Blood Pressure [Left Arm] Blood Pressure Mean Blood Pressure Mean [Left Arm] Pulse Oximetry 95 Oxygen Delivery Method Room Air Sepsis Recent Fever Within 48 Hours Sepsis New/Unexplained Change in Mental Status Sepsis Action Taken by Nursing Laboratory Data Result diagrams: 04/21/21 15:40 04/21/21 15:40 Lab Results 04/21/21 04/21/21 04/21/21 Range/Units 12:54 15:40 15:40 WBC 6.97 (4.8-10.8) K/uL RBC 4.04 L (4.2-5.4) M/uL Hgb 11.9 L (12.0-16.0) g/dL Hct 38.6 (37-47) % MCV 95.5 (80-100) fL MCH 29.5 (25-34) pg MCHC 30.8 L (32-36) g/dL RDW Std Deviation 52.5 H (36.4-46.3) fL RDW Coeff of Cory 15.0 H (11.5-14.5) % Plt Count 154 (130-400) K/uL MPV 12.5 H (7.4-10.4) fL Immature Gran % (Auto) 0.3 % Neut % (Auto) 65.7 % Lymph % (Auto) 22.1 % Garden % (Auto) 7.5 % Eos % (Auto) 4.0 % Baso % (Auto) 0.4 % Neut # (Auto) 4.58 (1.4-6.5) K/uL Lymph # (Auto) 1.54 (1.2-3.4) K/uL Garden # (Auto) 0.52 (0.11-0.59) K/uL Eos # (Auto) 0.28 (0-0.5) K/uL Baso # (Auto) 0.03 (0-0.2) K/uL Immature Gran # (Auto) 0.02 (0.00-0.02) K/uL Sodium 140 (136-145) mmol/L Potassium 4.1 (3.5-5.1) mmol/L Chloride 105 (98-107) mmol/L Carbon Dioxide 29 (21-32) mmol/L Anion Gap 6.0 (3-11) BUN 15 (7-18) mg/dl Creatinine 0.96 (0.6-1.2) mg/dl Est Cr Clr Drug Dosing 49.6 ml/min Est GFR ( Amer) 63.4 ml/min Est GFR (Non-Af Amer) 54.7 ml/min BUN/Creatinine Ratio 16.0 (10-20) Glucose 86 (70-99) mg/dl Calcium 9.8 (8.5-10.1) mg/dl Magnesium 1.7 L (1.8-2.4) mg/dl Total Bilirubin 0.3 (0.2-1) mg/dl AST 19 (15-37) U/L ALT 16 (12-78) U/L Alkaline Phosphatase 89 (45-117) U/L Troponin I < 0.015 (0-0.045) ng/ml Total Protein 7.4 (6.4-8.2) gm/dl Albumin 3.5 (3.4-5.0) gm/dl Globulin 3.9 (2.5-4.0) gm/dl Albumin/Globulin Ratio 0.9 (0.9-2) Lipase 94 (73-393) U/L TSH 1.680 (0.300-4.500) uIu/ml Urine Color Yellow Urine Appearance Clear (Clear) Urine pH 5.5 (4.5-7.5) Ur Specific [place] 1.019 (1.000-1.030) Urine Protein Negative (Negative) Urine Glucose (UA) 1+ H (Negative) Urine Ketones Negative (Negative) Urine Blood 3+ H (Negative) Urine Nitrite Negative (Negative) Urine Bilirubin Negative (Negative) Urine Urobilinogen Negative (Negative) Ur Leukocyte Esterase Negative (Negative) Urine WBC (Auto) 1-5 (0-5) /hpf Urine RBC (Auto) >30 H (0-4) /hpf U Hyaline Cast (Auto) 0 (0-5) /lpf U Epithel Cells (Auto) 5-10 H (0-5) /lpf Urine Bacteria (Auto) Negative (Negative) Administered Medications Discontinued Medications Aspirin (Aspirin Chew 324 Mg) 324 mg PO NOW STA Stop: 04/21/21 19:52 Last Admin: 04/21/21 20:25 Dose: 324 mg Documented by: [id number] Ioversol (Optiray 320 125ml) 116 ml IV ONCE ONE Stop: 04/21/21 20:57 Last Admin: 04/21/21 20:57 Dose: 116 ml Documented by: [id number] Imaging Data Radiologist's Impression: Chest X-Ray 04/21/21 15:02 XR chest 1V portable HISTORY: 85 years-old Female weakness acute weakness COMPARISON: Chest and rib radiographs 07/21/2019 TECHNIQUE: Portable AP view the chest FINDINGS: Cardiac silhouette is enlarged. Eventration of the right hemidiaphragm. Calcified plaque of the thoracic aorta. No pneumothorax, pleural effusion, airspace consolidation or overt pulmonary edema. No acute fracture. IMPRESSION: Cardiomegaly without acute process. ACT 112: Negative or not required by law. The above report was generated using voice recognition software. It may contain grammatical, syntax or spelling errors. Electronically signed by: Wesly Mcdowell M.D. 04/21/2021 4:24 PM Abdomen/Pelvis CT 04/21/21 16:[address] WITHOUT CONTRAST CT DOSE: 1561.92 mGy.cm HISTORY: Acute left lower quadrant abdominal pain LLQ abd pain, diverticulitis hx TECHNIQUE: Multiaxial CT images of the abdomen and pelvis were performed without contrast. A dose lowering technique was utilized adhering to the principles of ALARA. COMPARISON STUDY: CT abdomen and pelvis 03/25/2021 FINDINGS: Cardiomegaly with coronary artery calcifications. Minimal subsegmental atelectasis/scarring. No pneumatosis or pneumoperitoneum. Unremarkable spleen, adrenal glands and liver. Moderate pancreatic atrophy. Cholecystectomy. 2 mm n onobstructing calculus of the superior pole left kidney. No hydronephrosis. Unremarkable urinary bladder. Hysterectomy. Atherosclerosis of the aorta without aneurysm. No adenopathy. No bowel obstruction or bowel wall thickening. Partial sigmoid colon resection with colocolonic anastomosis. Colonic diverticulosis without acute diverticulitis. Mild fecal retention. The appendix measures the upper limits of normal at 7 mm however appears noninflamed, unchanged. Postoperative changes of the anterior abdominal wall. Unremarkable soft tissues. No acute fracture. Demineralized appearance of the bones. IMPRESSION: 1. No bowel obstruction or bowel wall thickening. 2. Colonic diverticulosis without acute diverticulitis. 3. 2 mm nonobstructing left renal calculus. No hydronephrosis. 4. Chronic findings as above. ACT 112: Negative or not required by law. The above report was generated using voice recognition software. It may contain grammatical, syntax or spelling errors. Electronically signed by: Wesly Mcdowell M.D. 04/21/2021 6:[address] 04/21/21 16:49 CT head/brain wo con CLINICAL HISTORY: 85 years-old Female with confusion. Acutely altered mental status with weakness TECHNIQUE: Multiple axial CT images of the head were obtained without contrast. A dose lowering technique was utilized adhering to the principles of ALARA. COMPARISON: Brain MRI 11/27/2015. FINDINGS: No acute intracranial hemorrhage, midline shift, intracranial mass, hydrocephalus, territorial ischemia or abnormal extra-axial collection. Age-related involutional changes. White matter hypodensities suggestive of chronic microvascular ischemic disease. Ill-defined 1.8 cm focus of decreased attenuation is noted within the right periventricular parietal lobe on image 19 series 2 is similar to prior, likely secondary to small vessel ischemic disea se.. Subcentimeter chronic appearing lacunar infarct noted in the region of the inferior left lateral nucleus on image 11 of series 2. Cerebral vascular calcifications. The calvarium is intact. Prior bilateral lens repair. The paranasal sinuses, mastoid air cells, and middle ear cavities are clear. IMPRESSION: No acute intracranial abnormality. ACT 112: Negative or not required by law. The above report was generated using voice recognition software. It may contain grammatical, syntax or spelling errors. Electronically signed by: Wesly Mcdowell M.D. 04/21/2021 5:50 PM Discharge Plan Visit Data Chief Complaint: Confusion Stated Complaint: TROUBLE W/MEMORY/CONFUSION ED Provider: Domenico Kenney Discharge Problem: Acute confusion, Generalized abdominal pain
--- NOTE | 2021-04-21 18:20 | CT Scan Report ---
ABDOMEN AND PELVIS CT WITHOUT CONTRAST CT DOSE: 1561.92 mGy.cm HISTORY: Acute left lower quadrant abdominal pain LLQ abd pain, diverticulitis hx TECHNIQUE: Multiaxial CT images of the abdomen and pelvis were performed without contrast. A dose lo wering technique was utilized adhering to the principles of ALARA. COMPARISON STUDY: CT abdomen and pelvis 03/25/2021 FINDINGS: Cardiomegaly with coronary artery calcifications. Minimal subsegmental atelectasis/scarring. No pneum atosis or pneumoperitoneum. Unremarkable spleen, adrenal glands and liver. Moderate pancreatic atroph y. Cholecystectomy. 2 mm nonobstructing calculus of the superior pole left kidney. No hydronephrosis. Unremarkable urinary bladder. Hysterectomy. Atherosclerosis of the aorta without aneurysm. No adenop athy. No bowel obstruction or bowel wall thickening. Partial sigmoid colon resection with colocolonic anast omosis. Colonic diverticulosis without acute diverticulitis. Mild fecal retention. The appendix measu res the upper limits of normal at 7 mm however appears noninflamed, unchanged. Postoperative changes of the anterior abdominal wall. Unremarkable soft tissues. No acute fracture. Demineralized appearanc e of the bones. IMPRESSION: 1. No bowel obstruction or bowel wall thickening. 2. Colonic diverticulosis without acute diverticulitis. 3. 2 mm nonobstructing left renal calculus. No hydronephrosis. 4. Chronic findings as above. ACT 112: Negative or not required by law. The above report was generated using voice recognition software. It may contain grammatical, syntax o r spelling errors. Electronically signed by: Wesly Mcdowell M.D. 04/21/2021 6:19 PM
[2021-04-21 18:41] LABS: Lipase 94 U/L (73-393)
[2021-04-21 19:34] LABS: Appearance Urine Clear (Clear); Bacteria Urine Automated Negative (Negative); Bilirubin Urine Negative (Negative); Blood Urine 3+ (Negative); Cast Urine Automated 0 /lpf (0-5); Color Urine Yellow; Glucose Urine UA 1+ (Negative); Ketones Urine Negative (Negative); Leukocyte Esterase Urine Negative (Negative); Nitrite Urine Negative (Negative); Protein Urine Negative (Negative); RBC Urine Automated >30 /hpf (0-4); Specific Gravity Urine 1.019 (1.000-1.030); Urobilinogen Urine Negative (Negative); pH Urine 5.5 (4.5-7.5)
[2021-04-21] MEDS ORDERED: ASPIRIN CHEW 324 MG PO STA (19:51)
--- NOTE | 2021-04-21 20:22 | History & Physical Report ---
Date of Service April 21, 2021 Assessment & Plan (1) Acute confusion: Plan: Consideration for TIA versus metabolic encephalopathy from urinary tract infection although urine is mild. Patient is negative noncontrast CT scan of the head reportedly is placed for CT angiography which is pending at this time. Consideration to pursue MRI scan if other studies are negative. Urine culture and evaluation for other metabolic causes of confusion are pending With concern for TIA patient remains on atorvastatin and aspirin 81 (2) Obstructive sleep apnea of adult: (3) Diabetes mellitus with renal complications: Plan: Patient typically takes linagliptin glipizide and Metformin. Unclear if glucoses were checked during events at home glucose is 86 on presentation holding medications and will have sliding scale at this time (4) Hypertension: Plan: Patient remains on lisinopril and amlodipine for secondary risk prevention (5) CKD (chronic kidney disease), stage III: Plan: Patient with a history of chronic kidney disease remains on ROCK inhibitor for renal protective effect of diabetes (6) Hypothyroidism: Plan: TSH was checked and normalized continue Synthroid at home dosing (7) DVT prophylaxis: Plan: SCDs will be used until MRI scan is resulted where sure there is no concern for intracranial bleeding Plan: Patient is hypomagnesemia repleted by IV exam History of Present Illness Primary Care Provider: Latanya Renteria MD 85 resents with 2 episodes of fairly significant confused state which is not her usual in the last few hours. This started briefly morning of 04/21/2021, resolved completely returned and resolved 1 additional time.At no time did the family check her glucose. The patient initially complained of some abdominal pain but resolved. CT scan negative for diverticulitis shows of a mildly abnormal urinalysis. The patient remains disoriented. No history of TIA or CVA. CT scan of the head is negative in the emergency department. Allergies Allergy/AdvReac Type Severity Reaction Status Date / Time hydromorphone AdvReac Severe hallucinati Verified 04/21/21 16:51 ons,confusi on Home Medications Medication Instructions Recorded Confirmed Type aspirin 81 mg tablet,delayed 81 mg PO HS tab 11/19/18 04/21/21 History release blood sugar diagnostic (OneTouch #10 ea 11/28/18 04/21/21 Rx Ultra Blue Test Strip) lancets #50 ea 11/28/18 04/21/21 Rx polyethylene glycol 3350 17 gram 17 g PO DAILY PRN #14 ea 05/21/19 04/21/21 Rx oral powder packet (Miralax) acetaminophen 500 mg tablet 500 mg PO UD PRN 07/21/19 04/21/21 History (Tylenol Extra Strength) metformin 1,000 mg tablet 500 mg PO BID #90 tab 04/30/20 04/21/21 Rx mecobalamin (vitamin B12) 1,000 5,000 mcg SUBLINGUAL QDL 09/12/20 04/21/21 History mcg disintegrating tablet,sublingual straight cane #1 ea 12/21/20 04/21/21 Rx allopurinol 100 mg tablet 200 mg PO HS 02/05/21 04/21/21 History amlodipine 10 mg tablet 10 mg PO QAM 02/05/21 04/21/21 History atorvastatin 20 mg tablet 20 mg PO HS 02/05/21 04/21/21 History glipizide 5 mg tablet, extended 5 mg PO QAM 02/05/21 04/21/21 History release 24 hr (Glucotrol XL) lisinopril 10 mg tablet 10 mg PO HS 02/05/21 04/21/21 History omeprazole 40 mg capsule,delayed 40 mg PO QAM 02/05/21 04/21/21 History release sertraline 100 mg tablet 200 mg PO HS 02/05/21 04/21/21 History alendronate 70 mg tablet 70 mg PO WK 03/25/21 04/21/21 History docusate sodium 100 mg capsule 100 mg PO UD PRN #30 cap 03/27/21 04/21/21 Rx buspirone 5 mg tablet 5 mg PO BID #180 tab 03/29/21 04/21/21 Rx linagliptin 5 mg tablet (Tradjenta) 5 mg PO QAM #90 tab 04/11/21 04/21/21 Rx cholecalciferol (vitamin D3) 125 5,000 units PO QDL 04/15/21 04/21/21 History mcg (5,000 unit) tablet tramadol 50 mg tablet 50 mg PO Q4H PRN #15 tab 04/17/21 04/21/21 Rx levothyroxine 100 mcg tablet 100 mcg PO DAILYBB 04/21/21 04/21/21 History Past Med/Surg History Medical History (Updated 04/21/21 @ 20:21 by Ramone Deal MD) Acid reflux disease Age related osteoporosis OSTEOPEROSIS Anxiety associated with depression Breast cancer HX DX 2010 - RIGHT, LUMPECTOMY Chronic back pain CANE CKD (chronic kidney disease), stage III Diabetes NIDDM Diverticulosis HX Gait abnormality Gout HX Hard of hearing History of anesthesia reaction PER DAUGHTER TAKES LONGER THAN AVERAGE TO WAKE UP History of COVID-20 JUL 2020. symptoms: flu-like symptoms. no current problems. HTN (hypertension) Hyperlipidemia Hypothyroidism Memory problem Obesity Sleep apnea CPAP Surgical History History of bladder surgery History of ear, nose, and throat (ENT) surgery throat surgery History of lumpectomy Right breast S/P breast biopsy HX S/P carpal tunnel release right S/P cholecystectomy S/P colon resection S/P colonoscopy S/P cubital tunnel release S/P hernia repair S/P hysterectomy S/P tonsillectomy HX Status post left partial knee replacement HX Status post right partial knee replacement HX Family History Father Diabetes Lymphoma Mother Depression Cardiac disorder Congestive heart failure Daughter Breast cancer Brother Gout Prostate cancer Sister Gout Hypertension Arthritis Social History Smoking Status: Never smoker Second Hand Exposure: No; Hx Alcohol Use: No Hx Substance Use: No Preferred Language: Lebanese Communication Ability: Effective 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 Beliefs That Will Affect Care: None marital status: Current Living Situation: Spouse Feels Safe at Home: Yes Physical Activity Frequency: Does not Exercise Seatbelt Use: always Assistive Devices: Cane, CPAP and Glasses Review of Systems Review of Systems: Mild distress and fatigue no headache, no visual changes no speech or swallowing issues no chest pain, pressure or palpitations no shortness of breath, cough or wheezes no abdominal pain, nausea or vomiting, diarrhea or constipation no dysuria, hematuria or frequency, chornically has incontinence no focal joint pain or swelling no back pain, CVA tenderness or radicular pain no bruising, bleeding or rashes no focal signs of weakness or numbness or altered sensation no complaints of anxiety or depression.. Physical Exam Physical Exam: The patient appeared well nourished and normally developed. Vital signs as documented. Head exam is normocephalic atraumatic Neck is without JVD, thyromegaly, or carotid bruits. Lungs are clear to auscultation, no focal loss of breath sounds Cardiac exam, Rhythm is regular.. No murmurs, rubs or gallops. Abdominal exam reveals normal bowel sounds, soft non tender, no masses Extremities are nonedematous and both pedal pulses are present has splint to left hand from carpel tunnel 04/17/21 Neurologic exam is alert and oriented, no focal loss of strength or sensation Skin is without bruises or rashes Psychologically is without concerns for anxiety or depression.. Results & Data Results & Data ([facility]) Vital Signs (Past 12 Hours) Vital Signs Temp Pulse Pulse Resp BP BP Pulse Ox 04/21/21 17:13 97 04/21/21 16:59 66 17 167/76 H 04/21/21 12:53 97.2 F L 82 20 167/[address] scan of the head performed 04/21/2021 is negative for acute cranial abnormality CT scan abdomen pelvis performed 04/21/2021 no bowel obstruction bowel wall thickening diverticulosis is seen without diverticulitis 2 mm nonobstructing left renal calculus without hydronephrosis is seen Chest x-ray performed 06/21/2020 no acute process PG Care Time/CCT Total # of Minutes Spent Total Time Spent with Patient: Total time spent is greater than 50% in coordination of care (as documented) at patient's floor/unit and/or counseling patient: Coding Level of Care Code INT OBSERVATION CARE 72M LVL 3 Diagnoses Acute confusion R41.0 Obstructive sleep apnea of adult G47.33 Diabetes mellitus with renal complications E11.29 Hypertension I10 Hypertension type: unspecified CKD (chronic kidney disease), stage III N18.3 Hypothyroidism E03.9 DVT prophylaxis Z29.9 (1) Hypertension Hypertension type: unspecified Qualified Code(s): I10 - Essential (primary) hypertension
[2021-04-21] MEDS ORDERED: OPTIRAY 320 125ml IV ONE (20:56)
[2021-04-21] MEDS ORDERED: MAGNESIUM HYDROXIDE SUSP 30 ML UDC PO PRN (23:27)
[2021-04-21] MEDS ORDERED: SERTRALINE HCL 100 MG TABLET PO SCH (23:27)
[2021-04-21] MEDS ORDERED: DEXTROSE 50% 50 ML SYRINGE IV PRN (23:27)
[2021-04-21] MEDS ORDERED: POLYETHYLENE (MIRALAX) 17 GM PACK PO PRN (23:27)
[2021-04-21] MEDS ORDERED: GLUCOSE 40% GEL 15 GM TUBE PO PRN (23:27)
[2021-04-21] MEDS ORDERED: GLUCAGON FOR INJ 1 MG VIAL SQ PRN (23:27)
[2021-04-21] MEDS ORDERED: lisinopril 10 MG TAB PO SCH (23:27)
[2021-04-21] MEDS ORDERED: DOCUSATE SODIUM 100 MG CAP PO PRN (23:27)
[2021-04-21] MEDS ORDERED: PHARMACIST DISCHARGE MED REC CONSULT PRN (23:27)
[2021-04-21] MEDS ORDERED: ACETAMINOPHEN HOME PACK 500 MG TABLET PO PRN (23:27)
[2021-04-21] MEDS ORDERED: GLUCOSE 10 TABS/TUBE PO PRN (23:27)
[2021-04-21] MEDS ORDERED: allopurinoL 100 MG TAB PO SCH (23:27)
[2021-04-21] MEDS ORDERED: ATORVASTATIN 20 MG TAB PO SCH (23:27)
[2021-04-21] MEDS ORDERED: ASPIRIN 81 MG ECTAB PO SCH (23:27)
[2021-04-21] MEDS ORDERED: CARBOHYDRATES FOR HYPOGLYCEMIA PO PRN (23:27)
[2021-04-21] MEDS ORDERED: ACETAMINOPHEN 325 MG TAB PO PRN (23:27)
[2021-04-21] MEDS ORDERED: ONDANSETRON INJ 2 MG/ML 2 ML VIAL IV PRN (23:27)
[2021-04-22] MEDS: INSULIN ASPART 100 UNITS/ML 3 ML PEN SC SCH ×3 (00:39→11:57)
[2021-04-22 05:51] LABS: Basophils # (auto) 0.01 K/uL (0-0.2); Basophils % (auto) 0.2 %; Eosinophils % (auto) 3.5 %; Hemoglobin 10.9 g/dL (12.0-16.0); Lymphocytes % (auto) 26.5 %; Mean Corpuscular Hemoglobin 29.4 pg (25-34); Mean Corpuscular Hgb Conc 31.1 g/dL (32-36); Mean Corpuscular Volume 94.3 fL (80-100); Mean Platelet Volume 12.7 fL (7.4-10.4); Monocytes # (auto) 0.42 K/uL (0.11-0.59); Monocytes % (auto) 7.4 %; Neutrophils # (auto) 3.52 K/uL (1.4-6.5); Neutrophils % (auto) 62.4 %; Platelet Count 148 K/uL (130-400); RDW Coefficient of Variation 15.1 % (11.5-14.5); RDW Standard Deviation 51.8 fL (36.4-46.3); Red Blood Count 3.71 M/uL (4.2-5.4); White Blood Count 5.65 K/uL (4.8-10.8)
[2021-04-22 06:15] LABS: BUN Creatinine Ratio 17.5 (10-20); Calcium 9.4 mg/dl (8.5-10.1); Est GFR (African American) 93.3 ml/min; Est GFR (Non-African American) 80.5 ml/min; Potassium 3.8 mmol/L (3.5-5.1)
[2021-04-22] MEDS ORDERED: LEVOTHYROXINE SODIUM 100 MCG TABLET PO SCH (06:30)
--- NOTE | 2021-04-22 07:35 | CT Scan Report ---
HEAD & NECK CTA HISTORY: Confusion. stroke like symptoms TECHNIQUE: Multiaxial CT images of the head were performed following the intravenous administration o f contrast to evaluate the major cerebral vessels. Multiaxial CT images of the neck were also perform ed following the intravenous administration of contrast to evaluate the major cervical vessels. Maxim um intensity projection images were also obtained. A dose lowering technique was utilized adhering to the principles of ALARA. COMPARISON: None. FINDINGS: There is no mass, hematoma, midline shift, or acute infarct. Visualized intracranial internal carotid arteries, distal vertebral arteries, and basilar artery are widely patent. There is no significant s tenosis, occlusion, or aneurysm seen within the bilateral ACAs, MCAs, or youth worker. Mild calcified plaque within the bilateral carotid siphons. The major dural venous sinuses are patent. The aortic arch and proximal great vessels are widely patent. There is no significant stenosis, occ lusion, or dissection identified within the bilateral common carotid, internal carotid, or vertebral arteries. Mild calcified plaque within the bilateral carotid bifurcations. IMPRESSION: 1. No significant stenosis, occlusion, or aneurysm within the [place] of [place]. 2. No significant stenosis, occlusion, or dissection identified within the carotid or vertebral arter ies. ACT 112: Negative or not required by law. Electronically signed by: Willie White M.D. 04/22/2021 7:34 AM
--- NOTE | 2021-04-22 07:35 | CT Scan Report ---
HEAD & NECK CTA HISTORY: Confusion. stroke like symptoms TECHNIQUE: Multiaxial CT images of the head were performed following the intravenous administration o f contrast to evaluate the major cerebral vessels. Multiaxial CT images of the neck were also perform ed following the intravenous administration of contrast to evaluate the major cervical vessels. Maxim um intensity projection images were also obtained. A dose lowering technique was utilized adhering to the principles of ALARA. COMPARISON: None. FINDINGS: There is no mass, hematoma, midline shift, or acute infarct. Visualized intracranial internal carotid arteries, distal vertebral arteries, and basilar artery are widely patent. There is no significant s tenosis, occlusion, or aneurysm seen within the bilateral ACAs, MCAs, or manager wind. Mild calcified plaque within the bilateral carotid siphons. The major dural venous sinuses are patent. The aortic arch and proximal great vessels are widely patent. There is no significant stenosis, occ lusion, or dissection identified within the bilateral common carotid, internal carotid, or vertebral arteries. Mild calcified plaque within the bilateral carotid bifurcations. IMPRESSION: 1. No significant stenosis, occlusion, or aneurysm within the [place] of [place]. 2. No significant stenosis, occlusion, or dissection identified within the carotid or vertebral arter ies. ACT 112: Negative or not required by law. Electronically signed by: Willie White M.D. 04/22/2021 7:34 AM
[2021-04-22 08:15] LABS: Estimated Average Glucose 148 mg/dl; Hemoglobin A1C 6.8 % (4.5-5.6)
[2021-04-22] MEDS ORDERED: [UNRECOGNIZED DRUG - OTHER] EXT SCH (09:00)
[2021-04-22] MEDS ORDERED: PANTOprazole 40 MG TAB PO SCH (09:00)
[2021-04-22] MEDS ORDERED: amLODIPine BESYLATE 5 MG TAB PO SCH (09:00)
[2021-04-22] MEDS: MAGNESIUM SULFATE / D5W 1 GM/100 ML BAG IV SCH ×2 (09:12→11:02)
[2021-04-22] MEDS ORDERED: ATORVASTATIN 40 MG TAB PO SCH (09:49)
--- NOTE | 2021-04-22 11:21 | Magnetic Resonance Report ---
Brain MRI WITHOUT CONTRAST HISTORY: Confusion. eval for stroke TECHNIQUE: Multiplanar multisequence MRI of the brain was performed without the use of contrast. COMPARISON STUDY: Head CT 04/21/2021. Brain MRI 11/27/2015. FINDINGS: There is no mass, hematoma, midline shift, or acute infarct. The paranasal sinuses are patricia r. The mastoid air cells are clear. The ventricles and sulci demonstrate mild age-related involutiona l changes. Scattered foci of T2 hyperintensity seen within the periventricular and subcortical white matter are nonspecific but suggestive of mild microvascular ischemic changes. The major vascular flow voids at the skull base are well-maintained. Mild mucosal thickening within the mastoid air cells an d sphenoid sinuses. IMPRESSION: No acute intracranial abnormality. Scattered foci of T2 hyperintensity seen within the periventricula r and subcortical white matter are nonspecific but favor microvascular ischemic change. ACT 112: Negative or not required by law. Electronically signed by: Willie White M.D. 04/22/2021 11:19 AM
[2021-04-22] MEDS ORDERED: STROKE PATIENT DISCHARGE STA (14:04)
--- NOTE | 2021-04-22 16:24 | Discharge Summary ---
Date of Service April 22, 2021 Admission HPI Per Admitting Provider 85 resents with 2 episodes of fairly significant confused state which is not her usual in the last few hours. This started briefly morning of 04/21/2021, resolved completely returned and resolved 1 additional time.At no time did the family check her glucose. The patient initially complained of some abdominal pain but resolved. CT scan negative for diverticulitis shows of a mildly abnormal urinalysis. The patient remains disoriented. No history of TIA or CVA. CT scan of the head is negative in the emergency department. Admission Exam Per Admitting Provider The patient appeared well nourished and normally developed. Vital signs as documented. Head exam is normocephalic atraumatic Neck is without JVD, thyromegaly, or carotid bruits. Lungs are clear to auscultation, no focal loss of breath sounds Cardiac exam, Rhythm is regular.. No murmurs, rubs or gallops. Abdominal exam reveals normal bowel sounds, soft non tender, no masses Extremities are nonedematous and both pedal pulses are present has splint to left hand from carpel tunnel 04/17/21 Neurologic exam is alert and oriented, no focal loss of strength or sensation Skin is without bruises or rashes Psychologically is without concerns for anxiety or depression.. Principal Diagnosis Acute Confusion Discharge Exam Constitutional WD/WN, vitals as above no acute distress Eyes PERRL, conjunctivae normal, anicteric sclerae ENMT Ears: no external ear abnormality Neck trachea midline, no thyromegaly Respiratory normal respiratory effort, lungs clear to auscultation Cardiovascular RRR, no murmur, no edema Gastrointestinal (Abdomen) normal bowel sounds, soft, nontender, no hepatosplenomegaly Musculoskeletal Extremities: strength 5/5 throughout Skin no rashes, warm and dry Neurologic patellar DTR's 2+ bilat, sensation intact Psychiatric A+Ox3, euthymic affect Discharge Data Allergies Allergy/AdvReac Type Severity Reaction Status Date / Time hydromorphone AdvReac Severe hallucinati Verified 04/21/21 16:51 ons,confusi on Consultations 04/21/21 19:59 ED Decision to Admit Stat Ordered Studies 04/21/21 16:49 CT abd pelvis wo con Stat CT head/brain wo con Stat 04/21/21 19:51 CT angio head w con Urgent CT angio neck with con Urgent 04/22/21 23:27 MR brain wo con Routine Hospital Course (1) Acute confusion: -Transient global amnesia versus transient ischemic attack versus hypoglycemia. -Stroke was ruled out with MRI of the head that revealed only atherosclerotic changes in the microvascular vessels. -As the patient only had 2 episodes of confusion that lasted upwards to 10 minutes each, likely not CVA in nature. -Glipizide was removed from her diabetic med regimen as this may have caused a low blood sugar episode that would explain the symptoms. A1c was 6.8. -Atorvastatin 20 mg was changed to 40 mg due to atherosclerotic disease of the microvasculature of the brain shown by MRI. (2) Obstructive sleep apnea of adult: (3) Diabetes mellitus with renal complications: -Patient typically takes linagliptin glipizide and Metformin. Unclear if glucoses were checked during events at home glucose is 86 on presentation holding medications and will have sliding scale at this time. -Glipizide removed from diabetes regiment as above. (4) Hypertension: -Patient remains on lisinopril and amlodipine for secondary risk prevention (5) CKD (chronic kidney disease), stage III: -Patient with a history of chronic kidney disease remains on ROCK inhibitor for renal protective effect of diabetes (6) Hypothyroidism: -TSH was checked and normalized continue Synthroid at home dosing (7) DVT prophylaxis: -SCDs will be used until MRI scan is resulted where sure there is no concern for intracranial bleeding -Patient is hypomagnesemia repleted by IV exam Total Time Total Time Spent Total Time Spent (In Minutes): <30 Discharge Plan Discharge Items Patient Disposition: Home - Self-Care Reason For Visit: TROUBLE W/MEMORY/CONFUSION Discharge Diagnosis: Acute Confusion Activity: Resume your previous activity Non-emergency contact: Primary Care Provider Call non-emergency contact if: your symptoms worsen Follow-up/Referrals: Latanya Renteria MD [Primary Care Provider] - Diet: Regular Addtl Attending Provider Instructions: You were seen in the hospital for acute confusion with 2 episodes occurring yesterday that lasted minutes. While you were here you had a brain MRI as well as general lab work done that revealed no pathology. A couple of differentials that were thought of included transient global amnesia, transient ischemic attack, and hypoglycemia. At this time we decided it was best if you were taken off of glipizide, one of your diabetic medications, as your diabetes is well controlled and this reduces the risk of hypoglycemic events. Please discuss this with your primary care provider. In addition your atorvastatin 20 mg was switched to 40 mg to reach the high intensity threshold. Physical therapy and Occupational Therapy also gave you the okay to return home. It was a pleasure to be a part of your care and we wish you the best in your recovery. Pending Studies at Discharge: No Stand-Alone Forms: My [facility], Smoking Cessation Medications and DC Order Prescriptions: New atorvastatin 40 mg tablet 40 mg PO HS Qty: 30 RF: 3 Continued metformin 1,000 mg tablet 500 mg PO BID Qty: 90 RF: 3 buspirone 5 mg tablet 5 mg PO BID Qty: 180 RF: 2 Tradjenta 5 mg tablet 5 mg PO QAM Qty: 90 RF: 3 aspirin 81 mg tablet,delayed release (DR/EC) 81 mg PO HS RF: 0 (DME) OneTouch Ultra Blue Test Strip strip See Dose Instructions .ROUTE .MEDSUPPLY Qty: 10 RF: 0 (DME) lancets misc See Dose Instructions .ROUTE .MEDSUPPLY Qty: 50 RF: 0 (DME) straight cane See Rx Instructions .Route .MEDSUPPLY Qty: 1 RF: 0 mecobalamin (vitamin B12) 1,000 mcg tablet,disintegrating 5,000 mcg sublingual QDL RF: 0 docusate sodium 100 mg capsule 100 mg PO UD PRN (Reason: Constipation) Qty: 30 RF: 0 acetaminophen [Tylenol Extra Strength] 500 mg Tablet 500 mg PO UD PRN (Reason: Pain) RF: 0 polyethylene glycol 3350 [Miralax] 17 gram Powder In Packet 17 g PO DAILY PRN (Reason: constipation) Qty: 14 RF: 0 cholecalciferol (vitamin D3) 5,000 unit tablet 5,000 units PO QDL RF: 0 tramadol 50 mg tablet 50 mg PO Q4H PRN (Reason: pain) Qty: 15 RF: 0 levothyroxine 100 mcg tablet 100 mcg PO DAILYBB RF: 0 sertraline 100 mg tablet 200 mg PO HS RF: 0 allopurinol 100 mg tablet 200 mg PO HS RF: 0 omeprazole 40 mg capsule,delayed release(DR/EC) 40 mg PO QAM RF: 0 amlodipine 10 mg tablet 10 mg PO QAM RF: 0 lisinopril 10 mg tablet 10 mg PO HS RF: 0 alendronate 70 mg tablet 70 mg PO WK RF: 0 Discontinued atorvastatin 20 mg tablet 20 mg PO HS RF: 0 glipizide [Glucotrol XL] 5 mg tablet extended release 24hr 5 mg PO QAM RF: 0 Discharge Orders: Discharge Order (Routine); Ordered 04/22/21 Ordered By: Satinder Villeda/Other Patient Handouts: A1C, Managing Type 2 Diabetes Admission Data Admit Date/Time: 04/21/21 20:30 Attending Provider: Stephen Lopez Admit Provider: Ramone Deal Primary Care Provider: Latanya Renteria Other Providers: Brent Grey ; Ramone Deal Other Interventions: Discharge Summary Assessment (RN) Last Done: 04/22/21 14:25 Supervising Physician Co-Signing Physician Notes I personally examined the patient and verified all pires points of history and exam, discussed case, and agree with decision making with Dr Tang Feeling much better. Feels like herself again. Notes 2 discrete very short- lived episodes of confusion that she could rememberno focal neuro deficits at that time. And now feels totally good again. Wants to go home. Vitals noted, in general she is awake alert oriented, pleasant no distress. HEENT normocephalic atraumatic mucous membranes moist. Breathing unlabored no accessory muscle use good effort. Skin shows no rashes no pallor or icterus. Neuro without focal deficits. Slow to get up, but steady gaitshe notes this is basically her baseline at home, and that she has a lift chair to help her get up even easier at home. Altered mental statussuspect transient due to hypoglycemiasulfonylurea discontinued. Nothing seems consistent with cerebrovascular disease, and fortunately her cerebrovascular work-up was quite reassuring as well. Stable for home. Outpatient PCP follow-up. Otherwise as above. Resident Activity Tracking Resident Involvement: Resident Care Provided Care Provided: Adult Hospital Medicine
--- NOTE | 2021-04-22 19:03 | Billing Data ---
Date of Service April 22, 2021 Coding Level of Care Code 72202 OBS Care - Discharge
--- NOTE | 2021-04-23 05:49 | Electrocardiogram Report ---
Test Reason : Blood Pressure : / mmHG Vent. Rate : 072 BPM Atrial Rate : 072 BPM P-R Int : 130 ms QRS Dur : 078 ms QT Int : 368 ms P-R-T Axes : 041 -16 018 degrees QTc Int : 402 ms Poor data quality, interpretation may be adversely affected Normal sinus rhythm Minimal voltage criteria for LVH, may be normal variant Borderline ECG When compared with ECG of 25-MAR-2021 15:20, No significant change was found Confirmed by Jimbo Gonsalez ([id number]) on 04/23/2021 5:48:44 AM Referred By: REFERRED SELF Confirmed By:Jimbo Gonsalez
== END 2021-04-22 14:38 | disposition home or self-care (01) ==
LOC: EDINP 12:41 → ED 12:41 → SUATTDRO 20:30 → EDINP 23:13